=== PATIENT | female | born 1935 | race Caucasian/White ===

== ENCOUNTER → 2016-07-14 | Outpatient (REF) | payer MEDICARE ==
[2016-07-14 12:03] LABS: VITAMIN B12 LEVEL 858 PG/ML (247-911)
[2016-07-14 12:10] LABS: MEAN CORPUSCULAR HEMOGLOBIN 30.5 pg (27.0-33.0); MEAN CORPUSCULAR HGB CONC 33.6 g/dl (32.0-36.5); MEAN CORPUSCULAR VOLUME 90.7 fl (80.0-96.0); RED CELL DISTRIBUTION WIDTH 13.8 % (11.5-14.5); WHITE BLOOD COUNT 10.6 K/mm3 (4.0-10.0)
[2016-07-14 12:15] LABS: ALBUMIN 3.7 GM/DL (3.2-5.2); ALBUMIN/GLOBULIN RATIO 1.32 (1.00-1.93); ALKALINE PHOSPHATASE 64 U/L (45-117); ALT/SGPT 19 U/L (12-78); ANION GAP 7 MEQ/L (8-16); AST/SGOT 11 U/L (15-37); BILIRUBIN,TOTAL 0.5 MG/DL (0.2-1.0); BLOOD UREA NITROGEN 16 MG/DL (7-18); CALCIUM LEVEL 10.5 MG/DL (8.8-10.2); CARBON DIOXIDE LEVEL 29 MEQ/L (21-32); CHLORIDE LEVEL 108 MEQ/L (98-107); CHOLESTEROL LEVEL 188 MG/DL (<200); CREATININE FOR GFR 0.76 MG/DL (0.55-1.02); FREE T4 1.16 NG/DL (0.76-1.46); GLOMERULAR FILTRATION RATE > 60.0 (>32); GLUCOSE, FASTING 96 MG/DL (83-110); POTASSIUM SERUM 4.2 MEQ/L (3.5-5.1); SODIUM LEVEL 144 MEQ/L (136-145); TOTAL PROTEIN 6.5 GM/DL (6.4-8.2); TRIGLYCERIDES LEVEL 234 MG/DL (<150)
== END ==
LOC: M SFHCPLAZ 09:16
PROVIDERS: ATTEND Family Medicine
DX: E53.8 Deficiency of other specified B group vitamins (principal); E03.9 Hypothyroidism, unspecified; E78.2 Mixed hyperlipidemia

== ENCOUNTER → 2016-09-25 | Outpatient (CLI) | payer MEDICARE ==
[2016-09-25 14:37] LABS: FREE T4 1.26 NG/DL (0.76-1.46)
== END ==
LOC: M WUC 10:59
PROVIDERS: ATTEND Family Medicine
DX: E03.9 Hypothyroidism, unspecified (principal)

== ENCOUNTER → 2017-01-16 | Outpatient (CLI) | payer MEDICARE ==
--- NOTE | 2017-01-18 09:48 | DEXA ---
AP SPINE L1 - L4 1.093 -0.8 1.0 LT FEMUR TOTAL 0.697 -2.5 -0.4 RT FEMUR TOTAL 0.775 -1.8 0.3 TOTAL BODY TOTAL OTHER DUAL FEMUR FRAX* ASSESSMENT Risk factors: Secondary osteoporosis, history of adult fracture. 10 year probability of fracture Major osteoporotic fracture 32.5 % Hip fracture 12.7 % COMMENTS: There is low bone density of the spine. There is osteoporosis of the hips. The density of the spine is increased 20.2% since the initial exam on 07/2001. The spine density is increased 0.6% since the most recent exam on 12/2013. The density of the left hip has decreased 16.3% since the initial exam on 2001. The density of the left hip has decreased 2.1% since the most recent exam on 2013. The density of the right hip has decreased 7.5% since the initial exam on 2001. The density of the right hip has decreased 1.8% since the most recent exam on 2013. FOLLOW-UP: Recommendation for the next bone density exam: 2 years. KIARRA
== END ==
LOC: M WHC 10:21
PROVIDERS: ATTEND Family Medicine
DX: M81.0 Age-related osteoporosis without current pathological fracture (principal); Z78.0 Asymptomatic menopausal state

== ENCOUNTER → 2017-07-20 | Outpatient (REF) | payer MEDICARE ==
[2017-07-20 13:01] LABS: HEMATOCRIT 49.1 % (36.0-47.0); HEMOGLOBIN 15.6 g/dl (12.0-16.0); MEAN CORPUSCULAR HEMOGLOBIN 29.2 pg (27.0-33.0); MEAN CORPUSCULAR HGB CONC 31.8 g/dl (32.0-36.5); MEAN CORPUSCULAR VOLUME 91.8 fl (80.0-96.0); PLATELET COUNT, AUTOMATED 326 10^3/uL (150-450); RED BLOOD COUNT 5.35 10^6/uL (4.00-5.40); RED CELL DISTRIBUTION WIDTH 13.3 % (11.5-14.5); WHITE BLOOD COUNT 10.5 10^3/uL (4.0-10.0)
[2017-07-20 13:23] LABS: ALBUMIN/GLOBULIN RATIO 1.48 (1.00-1.93); ALKALINE PHOSPHATASE 65 U/L (45-117); ALT/SGPT 17 U/L (12-78); ANION GAP 7 MEQ/L (8-16); AST/SGOT 14 U/L (7-37); BILIRUBIN,TOTAL 0.5 MG/DL (0.2-1.0); BLOOD UREA NITROGEN 13 MG/DL (7-18); CALCIUM LEVEL 10.3 MG/DL (8.8-10.2); CARBON DIOXIDE LEVEL 30 MEQ/L (21-32); CHLORIDE LEVEL 105 MEQ/L (98-107); CHOLESTEROL LEVEL 188 MG/DL (<200); CHOLESTEROL RISK RATIO 4.272 (<5); CREATININE FOR GFR 0.62 MG/DL (0.55-1.02); FREE T4 1.43 NG/DL (0.76-1.46); GLOMERULAR FILTRATION RATE > 60.0 (>32); GLUCOSE, FASTING 89 MG/DL (83-110); HDL CHOLESTEROL 44 MG/DL (>40); NON-HDL-C 144 MG/DL; POTASSIUM SERUM 4.8 MEQ/L (3.5-5.1); SODIUM LEVEL 142 MEQ/L (136-145); THYROID STIMULATING HORMONE 0.428 uIU/ML (0.358-3.740); TOTAL PROTEIN 6.7 GM/DL (6.4-8.2); TRIGLYCERIDES LEVEL 240 MG/DL (<150); URIC ACID 7.4 MG/DL (2.6-6.0)
== END ==
LOC: M SFHCPLAZ 09:17
DX: E53.8 Deficiency of other specified B group vitamins (principal); E03.9 Hypothyroidism, unspecified; E78.2 Mixed hyperlipidemia; M10.9 Gout, unspecified
CPT/HCPCS: 84443

== ENCOUNTER → 2017-11-28 | Outpatient (REF) | payer MEDICARE ==
[2017-11-28 21:45] LABS: C REACTIVE PROTEIN QUANTITATIV 0.33 MG/DL (0.00-0.30)
[2017-11-29 02:01] LABS: ERYTHROCYTE SEDIMENTATION RATE 6 mm/hr (0-30)
[2017-11-29 02:06] LABS: BASO # 0.1 10^3/uL (0.0-0.2); BASO % 0.8 % (0.0-1.0); EOS # 0.3 10^3/uL (0.0-0.50); EOS % 3.3 % (0.0-3.0); HEMATOCRIT 49.2 % (36.0-47.0); HEMOGLOBIN 15.9 g/dl (12.0-15.5); IMMATURE GRANULOCYTE % 0.6 % (0-3.0); LYMPH % 30.3 % (24.0-44.0); MEAN CORPUSCULAR HGB CONC 32.3 g/dl (32.0-36.5); MEAN CORPUSCULAR VOLUME 92.8 fl (80.0-96.0); MONO # 0.9 10^3/uL (0.0-0.8); MONO % 8.5 % (0.0-5.0); NEUTROPHILS # 5.6 10^3/uL (1.8-7.7); NEUTROPHILS % 56.5 % (36.0-66.0); PLATELET COUNT, AUTOMATED 312 10^3/uL (150-450); RED CELL DISTRIBUTION WIDTH 13.4 % (11.5-14.5)
== END ==
LOC: M SFHCPLAZ 12:31
DX: L03.114 Cellulitis of left upper limb (principal)
CPT/HCPCS: 86140

== ENCOUNTER → 2018-01-21 | Outpatient (REF) | payer MEDICARE ==
[2018-01-22 12:28] LABS: TOTAL 25(OH) VITAMIN D 45.3 NG/ML (30.0-100.0)
[2018-01-22 12:31] LABS: FREE T4 1.26 NG/DL (0.76-1.46); THYROID STIMULATING HORMONE 0.541 uIU/ML (0.358-3.740)
== END ==
LOC: M SFHCPLAZ 16:23
DX: E55.9 Vitamin D deficiency, unspecified (principal); E03.9 Hypothyroidism, unspecified; Z79.899 Other long term (current) drug therapy
CPT/HCPCS: 84443

== ENCOUNTER → 2018-04-22 | Outpatient (REF) | payer MEDICARE ==
[2018-04-22 15:52] LABS: BASO # 0.1 10^3/uL (0.0-0.2); BASO % 0.7 % (0.0-1.0); EOS # 0.6 10^3/uL (0.0-0.50); EOS % 4.9 % (0.0-3.0); HEMATOCRIT 47.8 % (36.0-47.0); HEMOGLOBIN 15.5 g/dl (12.0-15.5); IMMATURE GRANULOCYTE % 0.7 % (0-3.0); LYMPH # 2.9 10^3/uL (1.5-4.5); LYMPH % 24.3 % (24.0-44.0); MEAN CORPUSCULAR HEMOGLOBIN 30.2 pg (27.0-33.0); MEAN CORPUSCULAR HGB CONC 32.4 g/dl (32.0-36.5); MEAN CORPUSCULAR VOLUME 93.2 fl (80.0-96.0); MONO # 1.2 10^3/uL (0.0-0.8); MONO % 9.5 % (0.0-5.0); NEUTROPHILS # 7.2 10^3/uL (1.8-7.7); NEUTROPHILS % 59.9 % (36.0-66.0); PLATELET COUNT, AUTOMATED 329 10^3/uL (150-450); RED BLOOD COUNT 5.13 10^6/uL (4.00-5.40); RED CELL DISTRIBUTION WIDTH 12.7 % (11.5-14.5); WHITE BLOOD COUNT 12.1 10^3/uL (4.0-10.0)
[2018-04-22 16:15] LABS: ALBUMIN 3.8 GM/DL (3.2-5.2); ALBUMIN/GLOBULIN RATIO 1.31 (1.00-1.93); ALKALINE PHOSPHATASE 78 U/L (45-117); ALT/SGPT 18 U/L (12-78); ANION GAP 7 MEQ/L (8-16); AST/SGOT 13 U/L (7-37); BILIRUBIN,TOTAL 0.5 MG/DL (0.2-1.0); BLOOD UREA NITROGEN 16 MG/DL (7-18); C REACTIVE PROTEIN QUANTITATIV 2.38 MG/DL (0.00-0.30); CARBON DIOXIDE LEVEL 29 MEQ/L (21-32); CHLORIDE LEVEL 106 MEQ/L (98-107); CREATININE FOR GFR 0.68 MG/DL (0.55-1.30); GLOMERULAR FILTRATION RATE > 60.0 (>32); GLUCOSE, FASTING 89 MG/DL (70-100); POTASSIUM SERUM 4.5 MEQ/L (3.5-5.1); SODIUM LEVEL 142 MEQ/L (136-145); TOTAL PROTEIN 6.7 GM/DL (6.4-8.2); URIC ACID 7.4 MG/DL (2.6-6.0)
[2018-04-22 16:32] LABS: ERYTHROCYTE SEDIMENTATION RATE 9 mm/hr (0-30)
== END ==
LOC: M SFHCPLAZ 14:03
DX: M10.9 Gout, unspecified (principal)
CPT/HCPCS: 84550

== ENCOUNTER → 2018-05-21 | Outpatient (CLI) | payer MEDICARE ==
[2018-05-21 12:41] LABS: BASO # 0.1 10^3/uL (0.0-0.2); BASO % 1.1 % (0.0-1.0); EOS # 0.5 10^3/uL (0.0-0.50); EOS % 5.8 % (0.0-3.0); HEMATOCRIT 48.2 % (36.0-47.0); HEMOGLOBIN 15.5 g/dl (12.0-15.5); IMMATURE GRANULOCYTE % 0.3 % (0-3.0); LYMPH # 3.1 10^3/uL (1.5-4.5); LYMPH % 35.7 % (24.0-44.0); MEAN CORPUSCULAR HEMOGLOBIN 29.3 pg (27.0-33.0); MEAN CORPUSCULAR HGB CONC 32.2 g/dl (32.0-36.5); MEAN CORPUSCULAR VOLUME 91.1 fl (80.0-96.0); MONO # 0.7 10^3/uL (0.0-0.8); MONO % 8.1 % (0.0-5.0); NEUTROPHILS # 4.3 10^3/uL (1.8-7.7); PLATELET COUNT, AUTOMATED 323 10^3/uL (150-450); RED BLOOD COUNT 5.29 10^6/uL (4.00-5.40); WHITE BLOOD COUNT 8.8 10^3/uL (4.0-10.0)
[2018-05-21 12:55] LABS: ANION GAP 6 MEQ/L (8-16); BLOOD UREA NITROGEN 22 MG/DL (7-18); CALCIUM LEVEL 10.9 MG/DL (8.8-10.2); CARBON DIOXIDE LEVEL 30 MEQ/L (21-32); CHLORIDE LEVEL 103 MEQ/L (98-107); CREATININE FOR GFR 0.81 MG/DL (0.55-1.30); GLOMERULAR FILTRATION RATE > 60.0 (>32); GLUCOSE, FASTING 88 MG/DL (70-100); POTASSIUM SERUM 4.7 MEQ/L (3.5-5.1); SODIUM LEVEL 139 MEQ/L (136-145); TOTAL 25(OH) VITAMIN D 32.5 NG/ML (30.0-100.0); URIC ACID 5.9 MG/DL (2.6-6.0)
[2018-05-21 15:56] LABS: PTH INTACT 126.8 PG/ML (18.5-88.0)
== END ==
LOC: M WUC 08:41
DX: E83.52 Hypercalcemia (principal); E03.9 Hypothyroidism, unspecified; M10.9 Gout, unspecified
CPT/HCPCS: 84443

== ENCOUNTER → 2018-11-20 | Outpatient (REF) | payer MEDICARE ==
[2018-11-20 17:19] LABS: BLOOD UREA NITROGEN 12 MG/DL (7-18); CALCIUM LEVEL 10.2 MG/DL (8.8-10.2); CARBON DIOXIDE LEVEL 27 MEQ/L (21-32); CHLORIDE LEVEL 105 MEQ/L (98-107); CREATININE FOR GFR 0.64 MG/DL (0.55-1.30); GLOMERULAR FILTRATION RATE > 60.0 (>32); GLUCOSE, FASTING 95 MG/DL (70-100); POTASSIUM SERUM 4.3 MEQ/L (3.5-5.1); SODIUM LEVEL 139 MEQ/L (136-145)
== END ==
LOC: M SFHCPLAZ 14:28
PROVIDERS: ATTEND Nurse Practitioner Family
DX: M10.9 Gout, unspecified (principal); I11.9 Hypertensive heart disease without heart failure

== ENCOUNTER 2018-12-02 08:04 | Emergency (ER) | payer OTHER, MEDICARE ==
[~2018-12-02] VITALS: Ht 154.9 cm; Wt 73.6 kg
[2018-12-02] MEDS ORDERED: ONDANSETRON 4MG/2ML VIAL (J2405) IV ONE (08:30)
[2018-12-02] MEDS ORDERED: MORPHINE 2 MG/ML 1ML SYRINGE (J2270) IV ONE (08:30)
[2018-12-02] MEDS ORDERED: LEVO125T4 PO (08:38)
[2018-12-02] MEDS ORDERED: ASPI81TA85 PO (08:38)
[2018-12-02] MEDS ORDERED: EZET10TA21 PO (08:38)
[2018-12-02] MEDS ORDERED: VITA200028 PO (08:38)
[2018-12-02] MEDS ORDERED: LABE20TAB PO (08:38)
[2018-12-02] MEDS ORDERED: LOSA50TA88 PO (08:38)
[2018-12-02] MEDS ORDERED: ALLO100T PO (08:38)
[2018-12-02] MEDS ORDERED: B-12100T2 PO (08:38)
[2018-12-02 08:42] LABS: BASO # 0.1 10^3/uL (0.0-0.2); BASO % 0.6 % (0.0-1.0); EOS # 0.5 10^3/uL (0.0-0.50); EOS % 4.2 % (0.0-3.0); HEMATOCRIT 45.2 % (36.0-47.0); HEMOGLOBIN 14.9 g/dl (12.0-15.5); LYMPH # 2.1 10^3/uL (1.5-4.5); LYMPH % 16.7 % (24.0-44.0); MEAN CORPUSCULAR HEMOGLOBIN 30.3 pg (27.0-33.0); MEAN CORPUSCULAR VOLUME 91.9 fl (80.0-96.0); MONO # 0.9 10^3/uL (0.0-0.8); MONO % 6.8 % (0.0-5.0); NEUTROPHILS # 8.9 10^3/uL (1.8-7.7); NEUTROPHILS % 70.7 % (36.0-66.0); PLATELET COUNT, AUTOMATED 393 10^3/uL (150-450); RED BLOOD COUNT 4.92 10^6/uL (4.00-5.40); WHITE BLOOD COUNT 12.6 10^3/uL (4.0-10.0)
[2018-12-02] MEDS ORDERED: ISOVUE-370 76% 100ML VIAL (Q9967) As Ordered ONE (08:55)
[2018-12-02 09:00] LABS: INR 1.05; PROTHROMBIN TIME 13.8 SECONDS (12.1-14.4)
[2018-12-02 09:01] LABS: PARTIAL THROMBOPLASTIN TIME 37.7 SECONDS (25.4-37.6)
[2018-12-02 09:21] LABS: ALBUMIN 3.6 GM/DL (3.2-5.2); BILIRUBIN,DIRECT 0.1 MG/DL (0.0-0.2); BILIRUBIN,TOTAL 0.4 MG/DL (0.2-1.0); FREE T4 1.33 NG/DL (0.76-1.46); MB/CK RELATIVE INDEX 3.09 (< OR =4); THYROID STIMULATING HORMONE 2.37 uIU/ML (0.358-3.740); TOTAL PROTEIN 6.7 GM/DL (6.4-8.2); TROPONIN I 0.02 NG/ML (< 0.10)
--- NOTE | 2018-12-02 09:51 | REP ---
PORTABLE CHEST: AP portable view of the chest is performed and compared to a prior study 01/27/2016. There is mild chronic interstitial fibrotic change with no acute infiltrate. There is mild left ventricular prominence unchanged. There is calcification and tortuosity of the thoracic aorta. The mediastinal silhouette is unchanged. IMPRESSION: Stable chronic findings without evidence of acute infiltrate. Electronically Signed by Harish Jackson MD 12/03/2018 11:51 A
[2018-12-02 09:58] LABS: APPEARANCE, URINE CLEAR (CLEAR); BACTERIA, URINE AUTO NEGATIVE (NEGATIVE); BILIRUBIN, URINE AUTO NEGATIVE (NEGATIVE); BLOOD, URINE BLOOD 1+ (NEGATIVE); COLOR, URINE STRAW (YELLOW); GLUCOSE, URINE (UA) AUTO NEGATIVE (NEGATIVE); KETONE, URINE AUTO NEGATIVE (NEGATIVE); LEUKOCYTE ESTERASE, URINE AUTO NEGATIVE (NEGATIVE); NITRITE, URINE AUTO NEGATIVE (NEGATIVE); PROTEIN, URINE AUTO NEGATIVE (NEGATIVE); RBC, URINE AUTO 0 /HPF (0-3); SPECIFIC GRAVITY URINE AUTO 1.021 (1.002-1.035); SQUAMOUS EPITHELIAL CELL UR AU 0 /HPF (0-6); UROBILINOGEN, URINE AUTO 0.2 mg/dL (0.0-2.0); WBC, URINE AUTO 1 /HPF (0-3)
--- NOTE | 2018-12-02 10:24 | REP ---
CT ANGIOGRAM CHEST: TECHNIQUE: Axial contrast enhanced images from the thoracic inlet to the upper abdomen using 100 mL Isovue 370 intravenous contrast material with multiplanar reformations. There is no CT evidence of pulmonary embolism. There is no thoracic aortic aneurysm or dissection. There are mild atherosclerotic calcifications of the thoracic aorta. Multiple calcified granulomas are seen in both lungs and there are calcified mediastinal and hilar lymph nodes present. Mid esophagus is moderately distended with air and ingested material. There is no pleural or pericardial effusion. Heart is slightly enlarged. Multiple calcified granulomas are seen in the liver and spleen. Small subcentimeter cyst is seen in the left lobe of the liver. There are right renal cysts. About 6 somewhat ill-defined nodular opacities are seen scattered throughout the right lung with 3 seen on the left. In addition there are scattered thickened interstitial markings bilaterally with mildly confluent streaky densities in the lingula. There is no pneumothorax. There is no definite rib fracture. There is significant compression of the L1 which appears chronic. This was seen on the prior plain films of 10/08/2015. IMPRESSION: No evidence of pulmonary embolism or aortic dissection. Moderate distension of the mid esophagus with air and ingested material. No pleural or pericardial effusion. Multiple scattered ill-defined subcentimeter nodular opacities in the lungs with diffuse increased and thickened interstitial markings. Findings could represent an inflammatory process, underlying neoplastic etiology is not excluded. Recommend followup CT of the chest in 3 months. Electronically Signed by Harish Jackson MD 12/03/2018 11:52 A
[2018-12-02 11:26] VITALS: BP 170/81
--- NOTE | 2018-12-02 15:16 | ECGEPIP ---
[facility] - ED Test Date: 2018-12-02 Pat Name: HECTOR TINAJERO Department: Room: - Gender: Female Data Sme: pmo : 1935 Requested By: Yvonen Braun Order Number: [id number] Reading MD: Leni Mariscal Measurements Intervals [place] Rate: 72 P: 33 NE: 180 QRS: QRSD: 77 T: QT: 360 QTc: 395 Interpretive Statements SINUS RHYTHM POSSIBLE INFERIOR MYOCARDIAL INFARCTION, OF INDETERMINATE AGE INCREASED RATE 01/27/16 Electronically Signed on 12-02-2018 15:16:20 EDT by Leni Mariscal
--- NOTE | 2018-12-03 13:07 | ED PDOC ---
Post-Departure Follow-Up lisette stark and graeme faxed formal report of cta chest for fu Yvonne Gama MD Dec 03, 2018 13:07
== END 2018-12-02 11:28 | disposition home or self-care (01) ==
LOC: M ED 08:04
DX: R07.89 Other chest pain (principal); I10 Essential (primary) hypertension; K22.8 Other specified diseases of esophagus; V43.52XA Car driver injured in collision with other type car in traffic accident, initial encounter; Y92.9 Unspecified place or not applicable; Y93.9 Activity, unspecified; Y99.9 Unspecified external cause status; Z87.891 Personal history of nicotine dependence; Z79.82 Long term (current) use of aspirin; Z79.899 Other long term (current) drug therapy; Z88.0 Allergy status to penicillin; Z88.8 Allergy status to other drugs, medicaments and biological substances
CPT/HCPCS: 71045; 71275; 80047; 80076; 81001; 82550; 82553; 83690; 84439; 84443; 84484; 85025; 85610; 85730; 93005; 93041; 94760; 96374; 96375; 99285; J2270; J2405; Q9967

== ENCOUNTER → 2019-01-20 | Outpatient (CLI) | payer MEDICARE, OTHER ==
[~2019-01-20] MED LIST: ALLO100T PO; ASPI81TA85 PO; B-12100T2 PO; E-Z-GAS II EFFERVESCENT PACKET (SODIUM BICARB./CITRIC ACID/SIMETHICONE) As Ordered ONE; E-Z-HD 98% w/w 340GM SUSP BTL As Ordered ONE; E-Z-PAQUE 96% w/w SUSP 176GM BTL As Ordered ONE; EZET10TA21 PO; LABE20TAB PO; LEVO125T4 PO; LOSA50TA88 PO; VITA200028 PO
--- NOTE | 2019-01-21 13:27 | REP ---
Esophagram The procedure was performed under the direct supervision of Dr. Jackson. The images were reviewed with Dr. Jackson. A single view PA chest x-ray is submitted as a robotics testing technician film. There is no change compared to a previous chest x-ray performed on 12/02/2018. Liquid barium and gas producing granules were given in the erect position as well as liquid barium in the prone oblique positions in order to perform a double contrast esophagram examination. The oral and pharyngeal stages of deglutition are unremarkable. There is cricopharyngeal hypertrophy. In the mid esophagus there is a large diverticulum with retained food. There is no evidence of esophagitis, stricture mucosal ring, or hiatal hernia. Gastroesophageal reflux is not demonstrated on this examination. Impression: 1. Cricopharyngeal hypertrophy. 2. In the mid esophagus there is a large diverticulum with retained food. 0.8 minutes of fluoro time was utilized for this procedure. Reviewed by MARTIN Ferrari 01/20/2019 04:24 P Electronically Signed by Harish Jackson MD 01/21/2019 01:18 P
== END ==
LOC: M RAD 07:25
PROVIDERS: ATTEND Internal Medicine Gastroenterology
DX: R93.3 Abnormal findings on diagnostic imaging of other parts of digestive tract (principal); J39.2 Other diseases of pharynx; K22.5 Diverticulum of esophagus, acquired

== ENCOUNTER → 2019-03-10 | Outpatient (CLI) | payer MEDICARE ==
[~2019-03-10] MED LIST changes: -E-Z-GAS II EFFERVESCENT PACKET (SODIUM BICARB./CITRIC ACID/SIMETHICONE) As Ordered ONE; -E-Z-HD 98% w/w 340GM SUSP BTL As Ordered ONE; -E-Z-PAQUE 96% w/w SUSP 176GM BTL As Ordered ONE
--- NOTE | 2019-03-10 16:00 | REP ---
CT of the chest without contrast Indication: Pulmonary nodules. Comparison: CTA chest of 12/02/2018 and barium esophagram of 01/20/2019. Technique: Axial CT of the chest was performed without contrast. Coronal and sagittal reformatted images and coronal MIP images were provided. Findings: The upper airway is patent. There is no suspicious focal nodule. Previously described scattered ill-defined nodular opacities within both lungs have resolved, likely inflammatory in etiology. There is mild peribronchial thickening within the lung bases and linear interstitial thickening or scarring along the pleura within the lingula. There is no focal consolidation. There is no pleural effusion. The thyroid is not identified. There is atherosclerotic calcification of the thoracic aorta and coronary arteries. There is no pericardial effusion. There is no axillary lymphadenopathy. There is a similar appearance of calcified mediastinal and left hilar lymph nodes. There is similar appearance of mid esophageal diverticulum containing debris. Within the upper abdomen, similar appearance of tiny calcified granuloma within the liver and spleen. Multiple bilateral rib fractures with evidence of healing are new since the prior CT examination. There are degenerative changes of the shoulders. There is similar compression deformity of the L1 vertebral body with greater than 50% loss of height. Impression: Previously described scattered ill-defined nodular opacities within both lungs have resolved, likely inflammatory in etiology. No lung nodules. Mid esophageal diverticulum containing debris, similar to prior. Compression deformity of the L1 vertebral body with greater down 50% loss of height, similar to prior. Bilateral rib fractures with evidence of healing, are new since 12/02/2018 examination. Electronically Signed by Malik Guan MD 03/10/2019 03:52 P
== END ==
LOC: M RAD 15:01
PROVIDERS: ATTEND Thoracic Surgery (Cardiothoracic Vascular Surgery)
DX: Z87.09 Personal history of other diseases of the respiratory system (principal)

== ENCOUNTER → 2019-03-14 | Outpatient (REF) | payer MEDICARE ==
[2019-03-14 11:36] LABS: ALBUMIN 3.9 GM/DL (3.2-5.2); ALT/SGPT 16 U/L (12-78); BILIRUBIN,TOTAL 0.4 MG/DL (0.2-1.0); BLOOD UREA NITROGEN 11 MG/DL (7-18); CALCIUM LEVEL 10.2 MG/DL (8.8-10.2); CARBON DIOXIDE LEVEL 25 MEQ/L (21-32); CHLORIDE LEVEL 108 MEQ/L (98-107); CHOLESTEROL LEVEL 179 MG/DL (<200); CHOLESTEROL RISK RATIO 3.977 (<5); CREATININE FOR GFR 0.71 MG/DL (0.55-1.30); GLOMERULAR FILTRATION RATE > 60.0 (>32); GLUCOSE, FASTING 101 MG/DL (70-100); HDL CHOLESTEROL 45 MG/DL (>40); LDL CHOLESTEROL 92 MG/DL (<100); NON-HDL-C 134 MG/DL; POTASSIUM SERUM 4.2 MEQ/L (3.5-5.1); SODIUM LEVEL 142 MEQ/L (136-145); TOTAL 25(OH) VITAMIN D 31.4 NG/ML (30.0-100.0); TOTAL PROTEIN 6.6 GM/DL (6.4-8.2); TRIGLYCERIDES LEVEL 211 MG/DL (<150); URIC ACID 4.7 MG/DL (2.6-6.0)
[2019-03-14 11:37] LABS: VITAMIN B12 LEVEL 500 PG/ML (247-911)
== END ==
LOC: M SFHCPLAZ 07:55
PROVIDERS: ATTEND Nurse Practitioner Family
DX: E53.8 Deficiency of other specified B group vitamins (principal); M10.9 Gout, unspecified; E03.9 Hypothyroidism, unspecified; E78.2 Mixed hyperlipidemia; I11.9 Hypertensive heart disease without heart failure; E21.0 Primary hyperparathyroidism; E55.9 Vitamin D deficiency, unspecified

== ENCOUNTER → 2019-05-07 | Outpatient (CLI) | payer MEDICARE ==
--- NOTE | 2019-05-08 07:13 | REP ---
CERVICAL SPINE SERIES: Eight views. HISTORY: Neck pain. FINDINGS: Cervical vertebral body heights are preserved. Alignment is normal. Flexion/extension lateral views show no subluxation or instability. There is degenerative disc narrowing at C4-5 and C5-6 with anterior osteophyte formation. Oblique images show uncovertebral spurring on the right narrowing the C5-6 foramen. There is facet osteoarthritic hypertrophy bilaterally at each cervical level. There is a small left cervical rib and a somewhat elongate transverse processes noted on the right at C7. Vascular calcification is observed along the course of the right carotid artery. IMPRESSION: Degenerative disc and osteoarthritic facet changes as above. Electronically Signed by Raymond Oliva MD 05/08/2019 09:06 A
== END ==
LOC: M WUC 18:10
PROVIDERS: ATTEND Nurse Practitioner Adult Health
DX: M50.321 Other cervical disc degeneration at C4-C5 level (principal); M50.322 Other cervical disc degeneration at C5-C6 level

== ENCOUNTER → 2020-03-03 | Outpatient (CLI) | payer MEDICARE ==
[~2020-03-03] MED LIST changes: -ASPI81TA85 PO; +ASPI81TA86 PO
[2020-03-03 15:47] LABS: ALBUMIN 3.8 GM/DL (3.2-5.2); ALT/SGPT 22 U/L (12-78); BILIRUBIN,TOTAL 0.5 MG/DL (0.2-1.0); BLOOD UREA NITROGEN 16 MG/DL (7-18); CALCIUM LEVEL 10.5 MG/DL (8.8-10.2); CARBON DIOXIDE LEVEL 28 MEQ/L (21-32); CHLORIDE LEVEL 108 MEQ/L (98-107); CHOLESTEROL LEVEL 186 MG/DL (<200); CHOLESTEROL RISK RATIO 5.166 (<5); CREATININE FOR GFR 0.65 MG/DL (0.55-1.30); GLOMERULAR FILTRATION RATE > 60.0 (>32); GLUCOSE, FASTING 94 MG/DL (70-100); HDL CHOLESTEROL 36 MG/DL (>40); LDL CHOLESTEROL 105 MG/DL (<100); NON-HDL-C 150 MG/DL; POTASSIUM SERUM 4.6 MEQ/L (3.5-5.1); SODIUM LEVEL 140 MEQ/L (136-145); TOTAL 25(OH) VITAMIN D 27.8 NG/ML (30.0-100.0); TOTAL PROTEIN 6.6 GM/DL (6.4-8.2); TRIGLYCERIDES LEVEL 225 MG/DL (<150); URIC ACID 6.1 MG/DL (2.6-6.0)
== END ==
LOC: M PLALAB 09:26
PROVIDERS: ATTEND Nurse Practitioner Adult Health
DX: E78.2 Mixed hyperlipidemia (principal); I11.9 Hypertensive heart disease without heart failure; E03.9 Hypothyroidism, unspecified; E21.3 Hyperparathyroidism, unspecified; M10.9 Gout, unspecified; E55.9 Vitamin D deficiency, unspecified

== ENCOUNTER → 2020-11-11 | Outpatient (REF) | payer MEDICARE ==
[2020-11-11 17:54] LABS: ALT/SGPT 18 U/L (12-78); BILIRUBIN,TOTAL 0.5 MG/DL (0.2-1.0); BLOOD UREA NITROGEN 13 MG/DL (7-18); CALCIUM LEVEL 10.8 MG/DL (8.8-10.2); CARBON DIOXIDE LEVEL 30 MEQ/L (21-32); CHLORIDE LEVEL 107 MEQ/L (98-107); CHOLESTEROL LEVEL 181 MG/DL (<200); CHOLESTEROL RISK RATIO 4.525 (<5); CREATININE FOR GFR 0.64 MG/DL (0.55-1.30); GLOMERULAR FILTRATION RATE > 60.0 (>32); GLUCOSE, FASTING 85 MG/DL (70-100); HDL CHOLESTEROL 40 MG/DL (>40); LDL CHOLESTEROL 97 MG/DL (<100); NON-HDL-C 141 MG/DL; POTASSIUM SERUM 4.4 MEQ/L (3.5-5.1); SODIUM LEVEL 141 MEQ/L (136-145); TOTAL PROTEIN 6.5 GM/DL (6.4-8.2); TRIGLYCERIDES LEVEL 222 MG/DL (<150)
[2020-11-11 17:55] LABS: PTH INTACT 118.9 PG/ML (18.5-88.0); VITAMIN B12 LEVEL 908 PG/ML (247-911)
== END ==
LOC: M SFHCPLAZ 14:27
PROVIDERS: ATTEND Nurse Practitioner Adult Health
DX: E21.0 Primary hyperparathyroidism (principal); E55.9 Vitamin D deficiency, unspecified; I11.9 Hypertensive heart disease without heart failure; E53.8 Deficiency of other specified B group vitamins; E03.9 Hypothyroidism, unspecified; E78.2 Mixed hyperlipidemia

== ENCOUNTER 2021-04-17 00:14 | Inpatient (IN) | payer MEDICARE ==
[~2021-04-17] VITALS: Ht 157.5 cm; Wt 71.0 kg
--- OUTSIDE RECORDS SUMMARY | 2021-04-17 00:23 | CCD ---
Author Author [facility] Organization [facility] Address Unknown Phone Unavailable Care Team Providers Care Air Traffic Coordinator Name Role Phone Angelica Mendez Unavailable PROBLEMS ALLERGIES ENCOUNTERS from 1935 to 2021-01-27 IMMUNIZATIONS SOCIAL HISTORY REASON FOR REFERRAL No Information VITAL SIGNS MEDICATIONS PROCEDURES No Information RESULTS No Results REASON FOR VISIT MEDICAL (GENERAL) HISTORY Goals Section Health Concerns MEDICAL EQUIPMENT No Information MENTAL STATUS FUNCTIONAL STATUS ASSESSMENTS No Information PLAN OF TREATMENT Insurance Providers
--- OUTSIDE RECORDS SUMMARY | 2021-04-17 00:23 | CCD ---
Author Author [facility] Organization [facility] Address Unknown Phone Unavailable Care Team Providers Care [employer] Information [employer] Officer Name Role Phone Angelica Mendez Unavailable PROBLEMS Type Condition ICD9-CM Code QPP59-ZU Code Onset Dates Condition S tatus W/U Status Risk SNOMED Code Notes Problem B12 deficiency E53.8 Active confirmed 53210 4004 Problem Vitamin D deficiency, unspecified E55.9 Active con firmed 49846285 Problem Hypothyroidism, unspecified E03.9 Active confirmed 74678751 Problem Sleep pattern disturbance G47.20 Active confirmed 18389816 Problem Age-related osteoporosis without current pathological fracture M81.0 Active confirmed 903000278 has primary hyp erparathyroidism, would benefit from long-term ART Problem Encounter for immunization Z23 Active confirmed 586250031 Problem Allergic rhinitis, unspecified J30.9 Active confir med 81529583 Problem Deficiency of other specified B group vitamins E53 .8 Active confirmed 73431654 Problem Acute gout of right foot, unspecified cause M10.9 Active confirmed 678833743 Problem Vitamin D deficiency E55.9 Active confirmed 41197204 Problem Hypercalcemia E83.52 Active confirmed 929228 09 Problem Bilateral hearing loss, unspecified hearing loss type H91.93 Active confirmed 56573213 Problem Medicare annual wellness visit, subsequent Z00.00 Active confirmed 537217414 Problem Gout, unspecified M10.9 Active confirmed 90 841818 Problem Anxiety F41.9 Active confirmed 88270314 Problem Hypertensive heart disease without heart failure I 11.9 Active confirmed 41249241 Problem Primary generalized (osteo)arthritis M15.0 Act benjy confirmed 333858281 Problem Mixed hyperlipidemia E78.2 Active confirmed 521038575 intolerant of statins; on Zetia Problem 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, unspecified cause M1A.9XX1 Active confirmed 19155044 Problem Hyperparathyroidism E21.3 Active confirmed 17886797 Problem Primary hyperparathyroidism E21.0 Active confirmed 09987877 declines referral 08/20; calcium typically 10.x Problem Leukocytosis, unspecified type D72.829 Active confi rmed 523955578 ALLERGIES Allergen (clinical drug ingredient) Drug/Non Drug Allergy do cumented on EMR Reaction Allergy Type Onset Date Status penicillin G Penicillin G Procaine([facility] Code:[address]-02) Rash Drug Allergy Active hydrochlorothiazide Hydrochlorothiazide([facility] Code:[address]-47) gout Drug Allergy Active quinapril Quinapril HCl([facility] Code:[address]-89) cough Drug Toni rgy Active Lozal increased calcium Drug Allergy Activ e simvastatin Zocor([facility] Code:[address]-65) myalgias Drug Allergy Active ENCOUNTERS from 1935 to 2021-02-04 Encounter Location Date Provider Diagnosis [address] [phone] [place] [address] Jan, Angelica Mendez Hypertensive heart disease w [facility] heart failure I11.9 ; Mixed hyperlipidemia E78.2 and Anxiety F41.9 IMMUNIZATIONS Vaccine Route Administration Date Status Influenza (High Dose 65 & up) IM Intramuscular Jul 21, 2016 A dministered Influenza 18 yrs & older Flublok IM Intramuscular May 03, 2018 Administered Influenza (High Dose 65 & up) Unknown May 02, 2014 Ad ministered Influenza (High Dose 65 & up) IM Intramuscular Mar 30, 2015 A dministered Influenza (High Dose 65 & up) Unknown Apr 23, 2017 Ad ministered Influenza 6mo & up Fluzone IM Intramuscular Apr 28, 2010 Admi nistered Zoster 0.65mL Zostavax Unknown Apr 08, 2014 Administe red Pneumococcal Adult 0.5mL Pneumovax 23 IM Intramuscular Mar 03, 2020 Administered Pneumococcal Adult 0.5mL Pneumovax 23 IM Intramuscular December 15, 2015 Administered TDAP 0.5mL (Boostrix) IM Intramuscular December 08, 2010 Administe red Pneumococcal 0.5mL Prevnar 13 IM Intramuscular December 08, 2014 A dministered Influenza 6mo & up Fluzone Unknown May 15, 2013 Admin istered Influenza 6mo & up Fluzone IM Intramuscular May 16, 2012 Admi nistered Influenza 6mo & up Fluzone IM Intramuscular May 10, 2011 Admi nistered SOCIAL HISTORY Tobacco Use: Social History Observation Description Date Details (start date - stop date) Former Smoker Sex Assigned At : Social History Observation Description Sex Assigned At Unknown Education: Question Answer Notes Level of Education: High School Audit Question Answer Notes Total Score: 0 Interpretation: Alcohol Education Language: Question Answer Notes Languages spoken: Irish Rastafari: Question Answer Notes Rastafari No evangelical beliefs that would impact health care. Sexual Hx: Question Answer Notes Had sex in the last 12 months (vaginal, oral, or anal)? No Have you ever had an STD? No Drug and Alcohol Question Answer Notes Total Score: 0 Interpretation: No problems reported Alcohol Screening: Question Answer Notes Did you have a drink containing alcohol in the past year? No Points 0 Interpretation Negative BMI Care Goal Follow-Up Question Answer Notes Above Normal BMI Follow-Up Lifestyle education regarding t Tobacco Use: Question Answer Notes Are you a: former smoker How long has it been since you last smoked? > 10 years REASON FOR REFERRAL No Information VITAL SIGNS Weight 155 lbs Jan, Weight-kg 70.31 kg Jan, Height 63 in Jan, BMI 27.45 kg/m2 Jan, Heart Rate 84 /min Jan, Respiratory Rate 18 /min Jan, Temperature 97.7 degrees Fahrenheit Jan, Oximetry 96 Jan, Blood pressure systolic 152 mm Hg Jan, Blood pressure diastolic 98 mm Hg Jan, MEDICATIONS Medication SIG (Take, Route, Frequency, Duration) Notes Start Da te End Date Status Allopurinol 100 MG 1 tablet Orally twice daily for Active Vitamin D 1000 UNIT 1 tablet Orally Once a day Active Levothyroxine Sodium 125 MCG TAKE ONE TABLET BY MOUTH EVERY DAY for 9 0 Active Zetia 10 MG 1 tablet Orally Once a day for Active Synthroid 125 MCG 1 tab(s) Orally Once a day Active Zetia 10 MG 1 tablet Orally Once a day Active Labetalol HCl 200 MG TAKE ONE TABLET BY MOUTH TWICE A DAY Active Amitriptyline HCl 10 MG 1 tablet at bedtime Orally Once a day fo r days Jan, Active Losartan Potassium 100 MG 1 tablet Orally Once a day for 90 days Jan, Active PROCEDURES No Information RESULTS No Results REASON FOR VISIT elevated BP MEDICAL (GENERAL) HISTORY Type Description Date Medical History Hypothyroidism Medical History hyperlipidemia Medical History hypertension Medical History metabolic syndrome Medical History impaired fasting glucose Medical History osteoporosis--started tx 200 2; tx d/c 09/2010; DEXA 07/2001, 08/2004, 08/2009--repeated 01/12, BMD decreased c/w 2009, tx restarted 06/14; repeat DEXA 2018 Medical History vitamin D deficiency Medical History colonic polyps Medical History diverticulosis Medical History Gout 08/1999, 08/2002, 05/2007, 12/16 Medical History pneumonia 08/2004 Medical History L1 vertebral compresstion fracture 09/18 08 Medical History probable primary hyperparathyroidism; de clines referral 08/20 Medical History Borderline B12 level 06/14 Surgical History colonoscopy (hyperplastic polyp only) 21 03 Surgical History involutional ptosis upper right eye lid 06/2010 Surgical History involutional ptosis upper left eye lid 0 07/2010 Surgical History Right ankle surgery after a fall 1976 Surgical History blepharoplasty 06/10, 07/12 Goals Section No Information Health Concerns No Information MEDICAL EQUIPMENT No Information MENTAL STATUS No Information FUNCTIONAL STATUS No Information ASSESSMENTS Encounter Date Diagnosis Assessment Notes Treatment Notes Treatm ent Clinical Notes Jan, Hypertensive heart disease without heart failure (ICD-10 - I11.9) Her Cozaar was increased to 50 mg twice daily by phone call earlier this week, will continue this medication as ordered to 100 mg tablet written instructions given to patient follow-up appointment scheduled Jan, Mixed hyperlipidemia (ICD-10 - E78.2) in tolerant of statins; on Zetia Patient is intolerant to statins. She is tolerating Zetia. Reinforced the importance of lifestyle modifications to lower cardiovascular disease risk. These recommendations included eating a heart healthy diet, regular aerobic exercise and maintaining a desirable body weight. Jan, Anxiety (ICD-10 - F41.9) Patient stop Paxil, does not want to restart it. Because she read the side effects which is hypertension, after long conversation agreed upon amitriptyline 10 mg p.o. nightly for sleep and anxiety issues reviewed side effects with patient, encouraged her to give this medication a try PLAN OF TREATMENT Medication Medication Name Sig Start Date Stop Date Zetia 10 MG 1 tablet Orally Once a day Labetalol HCl 200 MG TAKE ONE TABLET BY MOUTH TWICE A DAY Losartan Potassium 100 MG 1 tablet Orally Once a day for 90 days Jan, Amitriptyline HCl 10 MG 1 tablet at bedtime Orally Once a da y for 90 days Jan, Treatment Notes Assessment Notes Clinical Notes Hypertensive heart disease without heart failure Her Cozaar was increased to 50 mg twice daily by phone call earlier this week, will continue this medication as ordered to 100 mg tablet written instructions given to patient follow-up appointment scheduled Mixed hyperlipidemia Patient is intolera nt to statins. She is tolerating Zetia. Reinforced the importance of lifestyle modifications to lower cardiovascular disease risk. These recommendations included eating a heart hea lthy diet, regular aerobic exercise and maintaining a desirable body weight. Anxiety Patient stop Paxil, does not want to restart it. Because she read the side effects which is hypertension, after long conversation agreed upon amitriptyline 10 mg p.o. nightly for sleep and anxiety issues reviewed side effects with patient, encouraged her to give this medication a try Next Appt Details Angelica 1 month afternoon appt hypertens ion Reason: Provider Name:Angelica Mendez, 02:30:00 PM, [address] [place] [address], , [place], [address], Provider Name:Angelica Durbin Vanessa, 01:00:00 PM, [address] [place] [address], , [place], [address], Insurance Providers Payer Name Payer Address Payer Phone Insured Name Patient Relati onship to Insured Coverage Start Date Coverage End Date MEDICARE BLUE PPO [address] [facility] BLUE CROSS [address] [facility] [id number] [address] [place] self
--- OUTSIDE RECORDS SUMMARY | 2021-04-17 00:23 | CCD ---
Author Author [facility] Organization [facility] Address Unknown Phone Unavailable Care Team Providers Care Table Hand Name Role Phone Angelica Mendez Unavailable PROBLEMS Type Condition ICD9-CM Code [id number] Code Onset Dates Condition S tatus W/U Status Risk SNOMED Code Notes Problem B12 deficiency E53.8 Active confirmed 16436 4004 Problem Vitamin D deficiency, unspecified E55.9 Active con firmed 32045792 Problem Hypothyroidism, unspecified E03.9 Active confirmed 94853468 Problem Sleep pattern disturbance G47.20 Active confirmed 39587542 Problem Age-related osteoporosis without current pathological fracture M81.0 Active confirmed 103321633 has primary hyp erparathyroidism, would benefit from long-term ART Problem Encounter for immunization Z23 Active confirmed 817688678 Problem Allergic rhinitis, unspecified J30.9 Active confir med 63269504 Problem Deficiency of other specified B group vitamins E53 .8 Active confirmed 69852727 Problem Acute gout of right foot, unspecified cause M10.9 Active confirmed 820342831 Problem Vitamin D deficiency E55.9 Active confirmed 38159212 Problem Hypercalcemia E83.52 Active confirmed 769212 09 Problem Bilateral hearing loss, unspecified hearing loss type H91.93 Active confirmed 50407759 Problem Medicare annual wellness visit, subsequent Z00.00 Active confirmed 929421350 Problem Gout, unspecified M10.9 Active confirmed 90 118674 Problem Anxiety F41.9 Active confirmed 23011934 Problem Hypertensive heart disease without heart failure I 11.9 Active confirmed 76579583 Problem Primary generalized (osteo)arthritis M15.0 Act benjy confirmed 580222205 Problem Mixed hyperlipidemia E78.2 Active confirmed 797687122 intolerant of statins; on Zetia Problem 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, unspecified cause M1A.9XX1 Active confirmed 87702503 Problem Hyperparathyroidism E21.3 Active confirmed 00889746 Problem Primary hyperparathyroidism E21.0 Active confirmed 12333222 declines referral 08/20; calcium typically 10.x Problem Leukocytosis, unspecified type D72.829 Active confi rmed [id number] ALLERGIES Allergen (clinical drug ingredient) Drug/Non Drug Allergy do cumented on EMR Reaction Allergy Type Onset Date Status penicillin G Penicillin G Procaine([facility] Code:[address]-64) Rash Drug Allergy Active hydrochlorothiazide Hydrochlorothiazide([facility] Code:[address]-36) gout Drug Allergy Active quinapril Quinapril HCl([facility] Code:[address]-16) cough Drug Toni rgy Active Lozal increased calcium Drug Allergy Activ e simvastatin Zocor([facility] Code:[address]-28) myalgias Drug Allergy Active ENCOUNTERS from 1935 to 2021-03-10 Encounter Location Date Provider Diagnosis [address] [phone] [place] [address] 08 Mar, 2021 Angelica Servage Mixed hyperlipidemia E78.2 ; Hypertensive heart disease without heart failure I11.9 ; Anxiety F41.9 ; Vitamin D deficiency, unspecified E55.9 ; B12 deficiency E53.8 and Hypothyroidism, unspecified E03.9 IMMUNIZATIONS Vaccine Route Administration Date Status Influenza (High Dose 65 & up) IM Intramuscular Jul 21, 2016 A dministered Influenza 18 yrs & older Flublok IM Intramuscular May 03, 2018 Administered Influenza (High Dose 65 & up) Unknown May 02, 2014 Ad ministered Influenza (High Dose 65 & up) Unknown Apr 23, 2017 Ad ministered Influenza (High Dose 65 & up) IM Intramuscular Mar 30, 2015 A dministered Influenza 6mo & up Fluzone IM Intramuscular [...] Education Language: Question Answer Notes Languages spoken: Belarusian Moravian: Question Answer Notes Moravian No uatsdin beliefs that would impact health care. Sexual [...] FOR REFERRAL No Information VITAL SIGNS Weight 155.4 lbs Mar, Weight-kg 70.49 kg Mar, Height 63 in Mar, BMI 27.52 kg/m2 Mar, Heart Rate 89 /min Mar, Respiratory Rate 18 /min Mar, Temperature 97.9 degrees Fahrenheit Mar, Oximetry 98 Mar, Blood pressure systolic 142 mm Hg Mar, Blood pressure diastolic 88 mm Hg Mar, MEDICATIONS Medication SIG (Take, Route, Frequency, Duration) Notes Start Da te End Date Status Zetia 10 MG 1 tablet Orally Once a day for 90 Active Vitamin D 1000 UNIT 1 tablet Orally Once a day Active Allopurinol 100 MG 1 tablet Orally twice daily for 90 Active Labetalol HCl 200 MG TAKE ONE TABLET BY MOUTH TWICE A DAY Active Zetia 10 MG 1 tablet Orally Once a day Active Levothyroxine Sodium 125 MCG TAKE ONE TABLET BY MOUTH EVERY DAY for 9 0 Active Losartan Potassium 100 MG 1 tablet Orally Once a day for 90 days Active Amitriptyline HCl 10 MG 1 tablet at bedtime Orally Once a day for 90 days Active PROCEDURES No Information RESULTS No Results REASON FOR VISIT 1 Month, hypertension follow up MEDICAL (GENERAL) HISTORY Type Description Date Medical [...] Notes Treatment Notes Treatm ent Clinical Notes Mar, Mixed hyperlipidemia (ICD-10 - E78.2) in tolerant of statins; on Zetia Patient is intolerant to statins. She is tolerating Zetia. Reinforced the importance of lifestyle modifications to lower cardiovascular disease risk. These recommendations included eating a heart healthy diet, regular aerobic exercise and maintaining a desirable body weight. Mar, Hypertensive heart disease without heart failure (ICD-10 - I11.9) Tolerating losartan 100 mg daily, will continue with the labetalol bp acceptable Mar, Anxiety (ICD-10 - F41.9) Patient stop Paxil, does not want to restart it. Because she read the side effects which is hypertension, after long conversation agreed upon amitriptyline 10 mg p.o. nightly for sleep and anxiety issues reviewed side effects with patient, encouraged her to give this medication a try 03/22 states she likes the medication, has been sleeping thri the night Mar, Vitamin D deficiency, unspecified (ICD-10 - E55. 9) Mar, B12 deficiency (ICD-10 - E53.8) Mar, Hypothyroidism, unspecified (ICD-10 - E03.9) PLAN OF TREATMENT Medication Medication Name Sig Start Date Stop Date Losartan Potassium 100 MG 1 tablet Orally Once a day for 90 days Zetia 10 MG 1 tablet Orally Once a day Labetalol HCl 200 MG TAKE ONE TABLET BY MOUTH TWICE A DAY Amitriptyline HCl 10 MG 1 tablet at bedtime Orally Once a day fo r 90 days Treatment Notes Assessment Notes Clinical Notes Mixed hyperlipidemia Patient is intolera nt to statins. She is tolerating Zetia. Reinforced the importance of lifestyle modifications to lower cardiovascular disease risk. These recommendations included eating a heart hea lthy diet, regular aerobic exercise and maintaining a desirable body weight. Hypertensive heart disease without heart failure Tolerating losartan 100 mg daily, will continue with the labetalol bp acceptable Anxiety Patient stop Paxil, does not want to restart it. Because she read the side effects which is hypertension, after long conversation agreed upon amitriptyline 10 mg p.o. nightly for sleep and anxiety issues reviewed side effects with patient, encouraged her to give this medication a try03/22 states she likes the medication, has been sleeping thri the night Future Test Test Name Order Date LIPID PANEL (CARDIAC RISK) [id number] Comprehensive Metabolic Profile (CMP) 20210502 VITAMIN D 25-HYDROXY 20210502 TSH 20210502 VITAMIN B12 LEVEL 20210502 Next Appt Details move aprt to early may Reason: Provider Name:Angelica Mendez, 02:00:00 PM, [address] [facility], , [place], [address], Insurance Providers Payer Name Payer Address Payer Phone Insured Name Patient Relati onship to Insured Coverage Start Date Coverage End Date MEDICARE BLUE PPO [address] [facility] [address] [facility] [id number] [address] [place] self
--- OUTSIDE RECORDS SUMMARY | 2021-04-17 00:23 | CCD ---
Author Author [facility] Organization [facility] Address Unknown Phone Unavailable Care Team Providers Care Load Mixer Name Role Phone Angelica Mendez Unavailable PROBLEMS Type Condition ICD9-CM Code [id number] Code Onset Dates Condition S tatus W/U Status Risk SNOMED Code Notes Problem B12 deficiency E53.8 Active confirmed 24644 4004 Problem Vitamin D deficiency, unspecified E55.9 Active con firmed 40187605 Problem Hypothyroidism, unspecified E03.9 Active confirmed 73768144 Problem Sleep pattern disturbance G47.20 Active confirmed 54638209 Problem Age-related osteoporosis without current pathological fracture M81.0 Active confirmed 183041691 has primary hyp erparathyroidism, would benefit from long-term ART Problem Encounter for immunization Z23 Active confirmed 392749445 Problem Allergic rhinitis, unspecified J30.9 Active confir med 30790421 Problem Deficiency of other specified B group vitamins E53 .8 Active confirmed 06770481 Problem Acute gout of right foot, unspecified cause M10.9 Active confirmed 080836444 Problem Vitamin D deficiency E55.9 Active confirmed 26109614 Problem Hypercalcemia E83.52 Active confirmed 857770 09 Problem Bilateral hearing loss, unspecified hearing loss type H91.93 Active confirmed 77004521 Problem Medicare annual wellness visit, subsequent Z00.00 Active confirmed 780312353 Problem Gout, unspecified M10.9 Active confirmed 90 862121 Problem Anxiety F41.9 Active confirmed 39766233 Problem Hypertensive heart disease without heart failure I 11.9 Active confirmed 09925558 Problem Primary generalized (osteo)arthritis M15.0 Act benjy confirmed 640723110 Problem Mixed hyperlipidemia E78.2 Active confirmed 393124678 intolerant of statins; on Zetia Problem 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, unspecified cause M1A.9XX1 Active confirmed 47814274 Problem Hyperparathyroidism E21.3 Active confirmed 09814547 Problem Primary hyperparathyroidism E21.0 Active confirmed 78753492 declines referral 08/20; calcium typically 10.x Problem Leukocytosis, unspecified type D72.829 Active confi rmed [id number] ALLERGIES Allergen (clinical drug ingredient) Drug/Non Drug Allergy do cumented on EMR Reaction Allergy Type Onset Date Status penicillin G Penicillin G Procaine([facility] Code:[address]-16) Rash Drug Allergy Active hydrochlorothiazide Hydrochlorothiazide([facility] Code:[address]-84) gout Drug Allergy Active quinapril Quinapril HCl([facility] Code:[address]-41) cough Drug Toni rgy Active Lozal increased calcium Drug Allergy Activ e simvastatin Zocor([facility] Code:[address]-17) myalgias Drug Allergy Active ENCOUNTERS from 1935 to 2021-01-31 Encounter Location Date Provider Diagnosis [address] [phone] [place] [address] Jan, Angelica Conroyage IMMUNIZATIONS Vaccine Route Administration Date Status Influenza [...] Education Language: Question Answer Notes Languages spoken: Polish Sikhism: Question Answer Notes Sikhism No christianity beliefs that would impact health care. Sexual [...] REASON FOR REFERRAL No Information VITAL SIGNS No information MEDICATIONS Medication SIG (Take, Route, Frequency, Duration) Notes Start Da te End Date Status Zetia 10 MG 1 tablet Orally Once a day for 90 Active Levothyroxine Sodium 125 MCG TAKE ONE TABLET BY MOUTH EVERY DAY for 9 0 Active Vitamin D 1000 UNIT 1 tablet Orally Once a day Active Losartan Potassium 50 MG TAKE ONE TABLET BY MOUTH EVERY DAY for 90 Active Ezetimibe 10 MG TAKE ONE TABLET BY MOUTH ONCE A DAY Oral for 48 Active Labetalol HCl 200 MG TAKE ONE TABLET BY MOUTH TWICE A DAY for 90 Active Synthroid 125 MCG 1 tab(s) Orally Once a day Active Allopurinol 100 MG 1 tablet Orally twice daily for 90 Active PARoxetine HCl 10 MG 1 tab Orally before bedtime for 30 day(s) October, Active PROCEDURES No Information RESULTS No Results [...] No Information FUNCTIONAL STATUS No Information ASSESSMENTS No Information PLAN OF TREATMENT Medication Medication Name Sig Start Date Stop Date Zetia 10 MG 1 tablet Orally Once a day for 90 Synthroid 125 MCG 1 tab(s) Orally Once a day Allopurinol 100 MG 1 tablet Orally twice daily for 90 Labetalol HCl 200 MG TAKE ONE TABLET BY MOUTH TWICE A DAY for 90 Vitamin D 1000 UNIT 1 tablet Orally Once a day Losartan Potassium 50 MG TAKE ONE TABLET BY MOUTH EVERY DAY for 90 Levothyroxine Sodium 125 MCG TAKE ONE TABLET BY MOUTH EVERY DAY for 90 PARoxetine HCl 10 MG 1 tab Orally before bedtime for 30 day(s) 1 October, Next Appt Details Provider Name:Angelica Gifty Mendez, 07:15:00 AM, [address] [place] [address] , [place], [address], Provider Name:Angelica Gifty Mendez, 01:00:00 PM, [address] [place] [address] , [place], [address], Insurance Providers Payer Name Payer Address Payer Phone Insured Name Patient Relati onship to Insured Coverage Start Date Coverage End Date MEDICARE BLUE PPO [address] [facility] [id number] [address] [place] self
--- OUTSIDE RECORDS SUMMARY | 2021-04-17 00:23 | CCD ---
Author Author [facility] Organization [facility] Address Unknown Phone Unavailable Care Team Providers Care Mica Sizer Name Role Phone Maring, Uriel PA Unavailable Unavailable Maring, Uriel PA Unavailable Unavailable Maring, Uriel PA Unavailable Unavailable Maring, Uriel PA Unavailable Unavailable Maring, Uriel PA Unavailable Unavailable Maring, Uriel PA Unavailable Unavailable Maring, Uriel PA Unavailable Unavailable Maring, Uriel PA Unavailable Unavailable Maring, Uriel PA Unavailable Unavailable Maring, Uriel PA Unavailable Unavailable Maring, Uriel PA Unavailable Unavailable Maring, Uriel PA Unavailable Unavailable Maring, Uriel PA Unavailable Unavailable Maring, Uriel PA Unavailable Unavailable Maring, Uriel PA Unavailable Unavailable Maring, Uriel PA Unavailable Unavailable Re-disclosure Warning The records that you are about to access may contain information from federally-assisted alcohol or drug abuse programs. If such information is present, then the following federally mandated warning applies: This information has been disclosed to you from records protected by federal confidentiality rules (42 CFR part 2). The federal rules prohibit you from making any further disclosure of this information unless further disclosure is expressly permitted by the written consent of the person to whom it pertains or as otherwise permitted by 42 CFR part 2. A general authorization for the release of medical or other information is NOT sufficient for this purpose. The Federal rules restrict any use of the information to criminally investigate or prosecute any alcohol or drug abuse patient.The records that you are about to access may contain highly sensitive health information, the redisclosure of which is protected by Article 27-F of the [facility] Public Health law. If you continue you may have access to information: Regarding HIV / AIDS; Provided by facilities licensed or operated by the [facility] Office of Mental Health; or Provided by the [facility] Office for People With Developmental Disabilities. If such information is present, then the following [facility] mandated warning applies: This information has been disclosed to you from confidential records which are protected by state law. State law prohibits you from making any further disclosure of this information without the specific written consent of the person to whom it pertains, or as otherwise permitted by law. Any unauthorized further disclosure in violation of state law may result in a fine or prison sentence or both. A general authorization for the release of medical or other information is NOT sufficient authorization for further disc losure. Family History Family Member Name Family Member Gender Family Member Status Date o f Status Description Data Source(s) Unknown Male Problem MEDENT ([facility]) Unknown Unknown Problem MEDENT ([facility]) Unknown Male Problem MEDENT ([facility] ) Encounters Encounter Providers Location Date Indications Data Source(s ) Office Visit, Est Pt., Level 3 PC [address] [place] [address] 03/09/2021 12:00:00 AM EDT eCW1 ([facility]) Office Visit, Est Pt., Level 4 PC [address] [place] [address] 02/02/2021 12:00:00 AM EDT eCW1 ([facility]) Unknown [address] [facility] [address] 01/31/2021 12:00:00 AM EDT eCW1 ([facility]) Unknown [address] [facility] [address] 01/27/2021 12:00:00 AM EDT eCW1 ([facility]) Unknown [address] [facility] [address] 12/30/2020 12:00:00 AM EDT eCW1 ([facility]) [place] [address] [facility] [address] 11/11/2020 12:00:00 AM EDT eCW1 ([facility]) [place] [address] [facility] [address] 07/26/2020 12:00:00 AM EST eCW1 ([facility]) Outpatient 07/21/2020 04:21:27 PM EST DocuTap ([facility]) Outpatient Attender: Uriel SEGURA 07/21/19 11:40:01 AM EST - 07/21/2020 12:48:13 PM EST [facility] ([facility] ) [place] [address] [facility] [address] 07/09/2020 12:00:00 AM EST eCW1 ([facility]) Immunizations Vaccine Date Status Description Data Source(s) COVID-19 VACCINE Pfizer 09/22/2020 12:00:00 AM EDT completed [facility] Vaccine Series Complete: YESThis Data wa s Submitted to [facility] Via [employer]. COVID-19 VACCINE Pfizer 09/01/2020 12:00:00 AM EST completed [facility] Vaccine Series Complete: NOThis Data was Submitted to [facility] Via [employer]. pneumococcal polysaccharide PPV23 03/03/2020 01:06:00 PM EDT comple mina eCW1 ([facility]) pneumococcal polysaccharide PPV23 03/03/2020 01:06:00 PM EDT comple mina eCW1 ([facility]) pneumococcal polysaccharide PPV23 03/03/2020 01:06:00 PM EDT comple mina eCW1 ([facility]) pneumococcal polysaccharide PPV23 03/03/2020 01:06:00 PM EDT comple mina eCW1 ([facility]) pneumococcal polysaccharide PPV23 03/03/2020 01:06:00 PM EDT comple mina eCW1 ([facility]) pneumococcal polysaccharide PPV23 03/03/2020 01:06:00 PM EDT comple mina eCW1 ([facility]) pneumococcal polysaccharide PPV23 03/03/2020 01:06:00 PM EDT comple mina eCW1 ([facility]) pneumococcal polysaccharide PPV23 03/03/2020 01:06:00 PM EDT comple mina eCW1 ([facility]) Medications Medication Brand Name Start Date Product Form Dose Route Admi nistrative Instructions Pharmacy Instructions Status Indications Reaction Description Data Source(s) Amitriptyline Hydrochloride 10 MG Oral Tablet Amitript yline HCl 10 MG Amitriptyline HCl 10 MG 02/02/2021 12:00:00 AM EDT 1.0 {tablet_at_b edtime} active Amitriptyline HCl 10 MG e CW1 ([facility]) Losartan Potassium 100 MG Oral Tablet Losartan Potassium 100 MG 02/02/2021 12:00:00 AM EDT 1.0 {tablet} active Lo sartan Potassium 100 MG eCW1 ([facility]) 10 mg 02/02/2021 12:00:00 AM EDT tablet 90 TAKE ONE TABLET BY MOUTH AT BEDTIME TAKE ONE TABLET BY MOUTH AT BEDTIME SOLD: 02/03/2021 [facility] 100 mg 02/02/2021 12:00:00 AM EDT tablet 90 TAKE ONE TABLET BY MOUTH EVERY DAY TAKE ONE TABLET BY MOUTH EVERY DAY SOLD: 02/03/2021 [facility] 10 mg 11/23/2020 12:00:00 AM EDT tablet 90 TAKE ONE TABLET BY MOUTH EVERY DAY TAKE ONE TABLET BY MOUTH EVERY DAY SOLD: 02/22/2021 [facility] 10 mg 11/23/2020 12:00:00 AM EDT tablet 90 TAKE ONE TABLET BY MOUTH EVERY DAY TAKE ONE TABLET BY MOUTH EVERY DAY SOLD: 11/24/2020 [facility] 125 mcg 11/22/2020 12:00:00 AM EDT tablet 90 TAKE ONE TABLET BY MOUTH EVERY DAY TAKE ONE TABLET BY MOUTH EVERY DAY SOLD: 11/24/2020 [facility] 100 mg 11/22/2020 12:00:00 AM EDT tablet 180 TAKE ONE TABLET BY MOUTH TWICE A DAY TAKE ONE TABLET BY MOUTH TWICE A DAY SOLD: 02/22/2021 [facility] 125 mcg 11/22/2020 12:00:00 AM EDT tablet 90 TAKE ONE TABLET BY MOUTH EVERY DAY TAKE ONE TABLET BY MOUTH EVERY DAY SOLD: 02/22/2021 [facility] 100 mg 11/22/2020 12:00:00 AM EDT tablet 180 TAKE ONE TABLET BY MOUTH TWICE A DAY TAKE ONE TABLET BY MOUTH TWICE A DAY SOLD: 11/24/2020 [facility] 50 mg 11/22/2020 12:00:00 AM EDT tablet 90 TAKE ONE TABLET BY MOUTH EVERY DAY TAKE ONE TABLET BY MOUTH EVERY DAY SOLD: 11/24/2020 [facility] 200 mg 11/22/2020 12:00:00 AM EDT tablet 180 TAKE ONE TABLET BY MOUTH TWICE A DAY TAKE ONE TABLET BY MOUTH TWICE A DAY SOLD: 11/24/2020 [facility] Labetalol hydrochloride 200 MG Oral Tablet LABETALOL HCL 11/22/2020 12:00:00 AM EDT tablet 180 TAKE ONE TABLET BY MOUTH TWI CE A DAY TAKE ONE TABLET BY MOUTH TWICE A DAY SOLD: 02/22/2021 [facility] Paroxetine Hydrochloride 10 MG Oral Tablet PAROXETINE HCL 11/11/2020 12:00:00 AM EDT tablet 30 TAKE ONE TABLET BY MOUTH AT BEDTIME TAKE ONE TABLET BY MOUTH AT BEDTIME SOLD: 01/30/2021 [facility] Paroxetine Hydrochloride 10 MG Oral Tablet PAROXETINE HCL 11/11/2020 12:00:00 AM EDT tablet 30 TAKE ONE TABLET BY MOUTH AT BEDTIME TAKE ONE TABLET BY MOUTH AT BEDTIME SOLD: 11/11/2020 [facility] PARoxetine HCl 10 MG PARoxetine HCl 10 MG 11/11/2020 12:00:00 AM EDT active PARoxetine HCl 10 MG eCW1 ([facility]) Paroxetine HCl 10 MG Paroxetine HCl 10 MG 11/11/2020 12:00:00 AM EDT active Paroxetine HCl 10 MG eCW1 ([facility]) Paroxetine Hydrochloride 10 MG Oral Tablet PAROXETINE HCL 11/11/2020 12:00:00 AM EDT tablet 30 TAKE ONE TABLET BY MOUTH AT BEDTIME TAKE ONE TABLET BY MOUTH AT BEDTIME SOLD: 12/31/2020 [facility] PARoxetine HCl 10 MG PARoxetine HCl 10 MG 11/11/2020 12:00:00 AM EDT active eCW1 ([facility]) PARoxetine HCl 10 MG PARoxetine HCl 10 MG 11/11/2020 12:00:00 AM EDT active PARoxetine HCl 10 MG eCW1 ([facility]) 100 mg 08/27/2020 12:00:00 AM EST tablet 180 TAKE ONE TABLET BY MOUTH TWICE A DAY TAKE ONE TABLET BY MOUTH TWICE A DAY SOLD: 08/29/2020 [facility] ezetimibe 10 MG Oral Tablet EZETIMIBE 07/10/2020 12:00:00 AM EST table t 90 TAKE ONE TABLET BY MOUTH ONCE A DAY TAKE ONE TABLET BY MOUTH ONCE A DAY SOLD: 07/11/2020 [facility] 10 mg 07/10/2020 12:00:00 AM EST tablet 48 TAKE ONE TABLET BY MOUTH ONCE A DAY TAKE ONE TABLET BY MOUTH ONCE A DAY SOLD: 10/07/2020 [facility] 100 mg 03/04/2020 12:00:00 AM EDT tablet 90 TAKE ONE TABLET BY MOUTH EVERY DAY TAKE ONE TABLET BY MOUTH EVERY DAY SOLD: 03/08/2020 [facility] 200 mg 03/04/2020 12:00:00 AM EDT tablet 180 TAKE ONE TABLET BY MOUTH TWICE A DAY TAKE ONE TABLET BY MOUTH TWICE A DAY SOLD: 08/29/2020 [facility] 50 mg 03/04/2020 12:00:00 AM EDT tablet 90 TAKE ONE TABLET BY MOUTH EVERY DAY TAKE ONE TABLET BY MOUTH EVERY DAY SOLD: 08/29/2020 [facility] 125 mcg 03/04/2020 12:00:00 AM EDT tablet 90 TAKE ONE TABLET BY MOUTH EVERY DAY TAKE ONE TABLET BY MOUTH EVERY DAY SOLD: 05/31/2020 [facility] 200 mg 03/04/2020 12:00:00 AM EDT tablet 180 TAKE ONE TABLET BY MOUTH TWICE A DAY TAKE ONE TABLET BY MOUTH TWICE A DAY SOLD: 03/08/2020 [facility] 125 mcg 03/04/2020 12:00:00 AM EDT tablet 90 TAKE ONE TABLET BY MOUTH EVERY DAY TAKE ONE TABLET BY MOUTH EVERY DAY SOLD: 08/29/2020 [facility] 50 mg 03/04/2020 12:00:00 AM EDT tablet 90 TAKE ONE TABLET BY MOUTH EVERY DAY TAKE ONE TABLET BY MOUTH EVERY DAY SOLD: 05/31/2020 [facility] 50 mg 03/04/2020 12:00:00 AM EDT tablet 90 TAKE ONE TABLET BY MOUTH EVERY DAY TAKE ONE TABLET BY MOUTH EVERY DAY SOLD: 03/08/2020 [facility] 125 mcg 03/04/2020 12:00:00 AM EDT tablet 90 TAKE ONE TABLET BY MOUTH EVERY DAY TAKE ONE TABLET BY MOUTH EVERY DAY SOLD: 03/08/2020 [facility] 200 mg 03/04/2020 12:00:00 AM EDT tablet 180 TAKE ONE TABLET BY MOUTH TWICE A DAY TAKE ONE TABLET BY MOUTH TWICE A DAY SOLD: 05/31/2020 [facility] 100 mg 12/10/2019 12:00:00 AM EDT tablet 90 TAKE ONE TABLET BY MOUTH TWICE A DAY TAKE ONE TABLET BY MOUTH TWICE A DAY SOLD: 07/11/2020 [facility] 100 mg 12/10/2019 12:00:00 AM EDT tablet 90 TAKE ONE TABLET BY MOUTH TWICE A DAY TAKE ONE TABLET BY MOUTH TWICE A DAY SOLD: 04/25/2020 [facility] 10 mg 10/17/2019 12:00:00 AM EDT tablet 90 TAKE ONE TABLET BY MOUTH EVERY DAY TAKE ONE TABLET BY MOUTH EVERY DAY SOLD: 04/13/2020 [facility] Insurance Providers Payer name Policy type / Coverage type Policy ID Covered constitution party ID Covered constitution party's relationship to jefferson Policy [place] Plan Information [place] Med[place] Part B [id number] Self [id number] [place] Med[place]ap [place] B [id number] Self [id number] [place] Med[place]ap Part [place] [id number] Self [id number] [place] Med[place]ap Part [place] [id number] Self [id number] [place] Med[place]ap Part [place] [id number] Self [id number] [place] Med[place]ap [place] [id number] Self [id number] [place] Med[place]ap Part B [id number] Self [id number] A Medicare [place] Med[place]ap Part B [id number] Self [id number] Medicare [place] Medicare Primary [id number] Self [id number] Medicare [place] Medicare Primary [id number] Self [id number] [place] Medigap Part B [id number] Self [id number] [place] Medigap Part B [id number] Self [id number] Blue Shield MCR Advantage Commercial [id number] Self V [id number] Blue Shield MCR Advantage Commercial [id number] Self V [id number] Blue Shield MCR Advantage Commercial [id number] Self V [id number] [facility] MEDICARE [id number] Janell [id number] Blue Shield MCR Advantage Commercial [id number] Self V [id number] Blue Shield MCR Advantage Commercial [id number] Self V [id number] Blue Shield MCR Advantage Commercial [id number] Self V [id number] Blue Shield MCR Advantage Commercial [id number] Self V [id number] [place] Medicare Part B [id number] Self [id number] [employer] Blue [employer] [place] Blue Cross/B lue Shield [id number] Self [id number] MEDICARE BLUE PPO 306 [id number] SP [id number] ANSI-Medicare Part B [id number] ANSI-Medicare Part B [id number] ANSI-Medicare Part B [id number] ANSI-Medicare Part B [id number] ANSI-Medicare Part B [id number] ANSI-Medicare Part B [id number] ANSI-Medicare Part B [id number] ANSI-Medicare Part B [id number] ANSI-Medicare Part B [id number] ANSI-Medicare Part B [id number] ANSI-Medicare Part B [id number] Medicare Blue Ppo Commercial [id number] Self [facility] Commercial [id number] Family Dependent Medicare [place]/[facility] Medicare Primary [id number] Self [employer] PPO O [id number] S [id number] MEDICARE C [id number] S [id number] A [employer]OM[place] [id number] SP [id number] MEDICARE [id number] SP [id number] A MEDICARE BLUE PPO 306 [id number] SP [id number] [employer] BCBS B [id number] S [id number] MEDICARE BLUE PPO 306 [id number] SP [id number] [employer] [place] Commercial [id number] Self [id number] Medicare Blue Ppo Commercial [id number] Self [id number] Medicare [place] Medicare Primary [id number] Self [id number] [facility]/[place] Commercial [id number] Family Dependent [id number] [place] [facility] [id number] Self [id number] [employer] [place] [id number] SP [id number] Medicare Blue Ppo Commercial [id number] Self [id number] Medicare [place] [facility] Medicare Primary [id number] Self [id number] ANSI-Medicare Part B [id number] ANSI-Medicare Part B [id number] ANSI-Medicare Part B [id number] ANSI-Medicare Part B [id number] [employer] [place] [id number] SP [id number] ANSI-Medicare Part B [id number] ANSI-Medicare Part B [id number] ANS-Medicare Part B [id number] ANS-Medicare Part B [id number] ANS-Medicare Part B [id number] ANSMedicare Part B [id number] ANSI-Medicare Part B [id number] Problems, Conditions, and Diagnoses Code Display Name Description Problem Type Effective Dates Data Source(s) F41.9 [id number] Anxiety Problem 11/11/2020 12:00:00 AM ED T eCW1 ([facility]) Surgeries/Procedures No Information Results ID Date Data Source [id number] 07/21/2020 12:00:00 AM EST [facility] Name Value Range Interpretation Code Description Data Lynne rce(s) Supporting Document(s) SARS coronavirus 2 RNA [Presence] in Res piratory specimen by BHAVESH with probe detection [facility] This lab was ordered by Lanie Maldonado and reported by [facility]. Procedure Social History Code Duration Value Status Description Data Source(s ) Smoking 03/09/2021 12:00:00 AM EDT Former Smoker completed Former Smoker eCW1 ([facility]) Smoking 02/02/2021 12:00:00 AM EDT Former Smoker completed Former Smoker eCW1 ([facility]) Smoking 11/11/2020 12:00:00 AM EDT Former Smoker completed Former Smoker eCW1 ([facility]) Smoking 11/11/2020 12:00:00 AM EDT Former Smoker completed Former Smoker eCW1 ([facility]) Smoking 11/11/2020 12:00:00 AM EDT Former Smoker completed Former Smoker eCW1 ([facility]) Smoking 11/11/2020 12:00:00 AM EDT Former Smoker completed Former Smoker eCW1 ([facility]) Vital Signs ID Date Data Source UNK Name Value Range Interpretation Code Description Data Source(s) Body weight 155.4 [lb_av] 155.4 [lb_av] eCW1 ([facility]) Body weight 70.49 kg 70.49 kg eCW1 ([facility]) Body height 63 [in_i] 63 [in_i] eCW1 ([facility]) Body mass index (BMI) [Ratio] 27.52 kg/m2 27.52 kg/m2 eCW1 ([facility]) Heart rate 89 /min 89 /min eCW1 ([facility]) Respiratory rate 18 /min 18 /min eCW1 ([facility]) Body temperature 97.9 [degF] 97.9 [degF] eCW1 ( [facility]) Systolic blood pressure 142 mm[Hg] 142 mm[Hg] e CW1 ([facility]) Diastolic blood pressure 88 mm[Hg] 88 mm[Hg] eCW1 ([facility]) Heart rate 84 /min 84 /min eCW1 ([facility]) Body weight 155 [lb_av] 155 [lb_av] eCW1 ([facility]) Body weight 70.31 kg 70.31 kg eCW1 ([facility]) Respiratory rate 18 /min 18 /min eCW1 ([facility]) Body height 63 [in_i] 63 [in_i] eCW1 ([facility]) Body mass index (BMI) [Ratio] 27.45 kg/m2 27.45 kg/m2 eCW1 ([facility]) Body temperature 97.7 [degF] 97.7 [degF] eCW1 ( [facility]) Systolic blood pressure 152 mm[Hg] 152 mm[Hg] e CW1 ([facility]) Diastolic blood pressure 98 mm[Hg] 98 mm[Hg] eCW1 ([facility]) Body weight 157.8 [lb_av] 157.8 [lb_av] eCW1 ([facility]) Body height 63 [in_i] 63 [in_i] eCW1 ([facility]) Body mass index (BMI) [Ratio] 27.95 kg/m2 27.95 kg/m2 eCW1 ([facility]) Heart rate 90 /min 90 /min eCW1 ([facility]) Respiratory rate 18 /min 18 /min eCW1 ([facility]) Body temperature 98.6 [degF] 98.6 [degF] eCW1 ( [facility]) Systolic blood pressure 138 mm[Hg] 138 mm[Hg] e CW1 ([facility]) Diastolic blood pressure 86 mm[Hg] 86 mm[Hg] eCW1 ([facility]) Patient Treatment Plan of Care Planned Activity Planned Date Details Description Data Source (s) Losartan Potassium 100 MG Oral Tablet 02/02/2021 12:00:00 AM EDT eCW1 ([facility]) Amitriptyline Hydrochloride 10 MG Oral Tablet 02/02/2021 12:00:00 A M EDT eCW1 ([facility]) PARoxetine HCl 10 MG 11/11/2020 12:00:00 AM EDT eCW1 ([facility]) Paroxetine HCl 10 MG 11/11/2020 12:00:00 AM EDT eCW1 ([facility]) PARoxetine HCl 10 MG 11/11/2020 12:00:00 AM EDT eCW1 ([facility]) PARoxetine HCl 10 MG 11/11/2020 12:00:00 AM EDT eCW1 ([facility])
[2021-04-17] MEDS ORDERED: ONDANSETRON 4MG/2ML VIAL IV ONE (01:15)
[2021-04-17] MEDS: MORPHINE 2 MG/ML 1ML VIAL (J2270) IV PRN ×2 (01:54→20:30)
[2021-04-17 02:00] LABS: BASO % 0.5 % (0.0-1.0); EOS # 0.1 10^3/uL (0.0-0.5); EOS % 1.5 % (0.0-3.0); HEMATOCRIT 44.2 % (36.0-47.0); HEMOGLOBIN 14.4 g/dl (12.0-15.5); LYMPH # 2.4 10^3/uL (1.5-5.0); LYMPH % 30.3 % (24.0-44.0); MEAN CORPUSCULAR HEMOGLOBIN 30.8 pg (27.0-33.0); MEAN CORPUSCULAR HGB CONC 32.6 g/dl (32.0-36.5); MEAN CORPUSCULAR VOLUME 94.4 fl (80.0-96.0); MONO # 0.6 10^3/uL (0.0-0.8); MONO % 7.5 % (2.0-8.0); NEUTROPHILS # 4.6 10^3/uL (1.5-8.5); NEUTROPHILS % 57.1 % (36.0-66.0); PLATELET COUNT, AUTOMATED 185 10^3/uL (150-450); RED BLOOD COUNT 4.68 10^6/uL (4.00-5.40)
--- NOTE | 2021-04-17 02:00 | REPVR ---
PROCEDURE INFORMATION: Exam: CT Head Without Contrast Exam date and time: 04/17/2021 1:11 AM Age: 86 years old Clinical indication: Injury or trauma; Fall; Blunt trauma (contusions or hematomas) TECHNIQUE: Imaging protocol: Computed tomography of the head without contrast. Radiation optimization: All CT scans at this facility use at least one of these dose optimization techniques: automated exposure control; mA and/or kV adjustment per patient size (includes targeted exams where dose is matched to clinical indication); or iterative reconstruction. COMPARISON: CR SPINE CERVICAL COMPL 05/07/2019 6:21 PM FINDINGS: Brain: There is mild patchy low attenuation of deep white matter. There is mild prominence of the peripheral sulci. Cerebral ventricles: There is slight prominence of the central ventricular system. Paranasal sinuses: Visualized sinuses are unremarkable. No fluid levels. Mastoid air cells: Visualized mastoid air cells are well aerated. Bones/joints: Unremarkable. No acute fracture. Soft tissues: Unremarkable. IMPRESSION: 1. Mild chronic ischemic white matter change and atrophy. 2. Otherwise negative noncontrast head CT. Electronically signed by: Jitendra Zuniga On 04/17/2021 01:59:26 AM
--- NOTE | 2021-04-17 02:05 | REPVR ---
PROCEDURE INFORMATION: Exam: CT Cervical Spine Without Contrast Exam date and time: 04/17/2021 1:11 AM Age: 86 years old Clinical indication: Injury or trauma; Fall; Blunt trauma TECHNIQUE: Imaging protocol: Computed tomography images of the cervical spine without contrast. Radiation optimization: All CT scans at this facility use at least one of these dose optimization techniques: automated exposure control; mA and/or kV adjustment per patient size (includes targeted exams where dose is matched to clinical indication); or iterative reconstruction. COMPARISON: CR SPINE CERVICAL COMPL 05/07/2019 6:21 PM FINDINGS: Vertebrae: Dextroscoliosis through the cervical spine with thoracic levoscoliosis. Small cervical rib on the left at C7. C2-C3: Minimal degenerative change of the left apophyseal joint with no spinal or foraminal stenosis. C3-C4: No significant disc protrusion. No severe spinal canal stenosis. No significant neural foraminal narrowing. C4-C5: Moderate interspace narrowing with very minimal posterior paracentral osteophytes and early degenerative changes of apophyseal joints with no spinal or foraminal stenosis. C5-C6: Moderate interspace narrowing with minimal posterior osteophytes and bilateral degenerative changes, greatest in a vertebral joints with mild right neural foraminal stenosis. C6-C7: No significant disc protrusion. No severe spinal canal stenosis. No significant neural foraminal narrowing. C7-T1: No significant disc protrusion. No severe spinal canal stenosis. No significant neural foraminal narrowing. Other bones/joints: Prominent calcific density within the joint space of the left shoulder. Degenerative changes of the TMJs. Soft tissues: Unremarkable. Lungs: Lung apices are normal. IMPRESSION: 1. Mild multilevel degenerative changes with mild right neural foraminal stenosis at C5-C6. Otherwise, no spinal or foraminal stenosis. 2. Otherwise negative CT cervical spine. No acute fracture or subluxation. Electronically signed by: Jitendra Zuniga On 04/17/2021 02:05:17 AM
[2021-04-17 02:11] LABS: INR 1.02; PROTHROMBIN TIME 13.8 SECONDS (12.7-14.5)
[2021-04-17 02:37] LABS: BLOOD UREA NITROGEN 14 MG/DL (7-18); CALCIUM LEVEL 9.9 MG/DL (8.8-10.2); CARBON DIOXIDE LEVEL 28 MEQ/L (21-32); CHLORIDE LEVEL 108 MEQ/L (98-107); CREATININE FOR GFR 0.73 MG/DL (0.55-1.30); GLOMERULAR FILTRATION RATE > 60.0 (>32); GLUCOSE, FASTING 99 MG/DL (70-100); POTASSIUM SERUM 4.2 MEQ/L (3.5-5.1); SODIUM LEVEL 140 MEQ/L (136-145)
--- NOTE | 2021-04-17 03:09 | REPVR ---
PROCEDURE INFORMATION: Exam: CT Abdomen And Pelvis Without Contrast Exam date and time: 04/17/2021 2:37 AM Age: 86 years old Clinical indication: Injury or trauma; Fall; Fracture, traumatic; Additional info: Multiple left sided pelvic fx's TECHNIQUE: Imaging protocol: Computed tomography of the abdomen and pelvis without contrast. Radiation optimization: All CT scans at this facility use at least one of these dose optimization techniques: automated exposure control; mA and/or kV adjustment per patient size (includes targeted exams where dose is matched to clinical indication); or iterative reconstruction. COMPARISON: CR Hip,AP,LAT to include Pelvis LEFT 04/17/2021 1:04 AM FINDINGS: Lungs: Bibasilar coarse interstitium with minimal fibro-atelectatic change and question of minimal infiltrates. There is some bilateral lower lobe endobronchial plugging. Mediastinal space: Mild distention of the mid esophagus although may reflect a diverticulum. Liver: Multiple hepatic calcifications are noted. Gallbladder and bile ducts: Normal. No calcified stones. No ductal dilation. Pancreas: Normal. No ductal dilation. Spleen: Splenic calcifications are noted. The liver and spleen are grossly intact on this noncontrast scan. No perihepatic or perisplenic fluid collections are identified. Adrenal glands: Normal. No mass. Kidneys and ureters: There are some right renal cysts measuring up to 4.5 cm with a Hounsfield measurement of -10 which appear to reflect simple cysts. No follow-up imaging is recommended. Probable nonobstructing right renal calculus. Stomach and bowel: There is colonic diverticulosis without evidence of diverticulitis. Appendix: A normal small appendix is probably seen. Intraperitoneal space: See "Spleen" finding. Vasculature: There is mild calcification of the abdominal aorta with extension into the iliac arteries. Lymph nodes: Calcified left hilar lymph nodes. Urinary bladder: Unremarkable as visualized. Reproductive: Unremarkable as visualized. Bones/joints: Mildly displaced fracture through the mid left inferior pubic ramus and slightly displaced fractures of the mid and lateral aspects of the left superior pubic ramus. There is a nondisplaced relatively horizontally oriented fracture extending through the left iliac wing from the level of the sciatic notch. Moderately prominent diffuse compression L1 with retropulsion of the posterosuperior aspect and mild diffuse and wedge compression T8 and possibly T7. Facet arthropathy is noted in the lower lumbar spine with degenerative disc changes and mild spinal stenosis at L3-L4. Soft tissues: Slight hemorrhagic infiltration in the left obturator externus and possibly obturator internus. IMPRESSION: 1. Food material and gas in the region of the mid esophagus which may reflect esophageal distention. Diverticulum is not excluded. 2. Old granulomatous disease of the chest, liver and spleen. 3. Fractures of the left inferior and superior pubic rami and nondisplaced fracture through the left iliac wing extending laterally from the sciatic notch. There is question of slight hemorrhagic infiltration involving the left obturator internus and externus musculature. 4. Bibasilar coarse pulmonary interstitium with minimal fibro-atelectatic change and question of minimal infiltrates. There is question of some endobronchial plugging in the lower lobes. 5. Moderately prominent diffuse compression of L1 with retropulsion of the posterosuperior aspect and mild diffuse and wedge compression of T8 and possibly T7 of uncertain age. 6. Probable nonobstructing right renal calculus. 7. Colonic diverticulosis without diverticulitis. COMMENTS: Consistent with the [employer]'s Incidental Findings Committee white paper (J Am Cristian Radiol 2018): Any incidental renal lesion less than 1 cm or classified as too small to characterize, or any incidental cystic renal lesion characterized as simple-appearing, is likely benign. No follow-up imaging is recommended for these lesions per consensus recommendations based on imaging criteria. Electronically signed by: Jitendra Zuniga On 04/17/2021 03:08:47 AM
--- NOTE | 2021-04-17 03:10 | REPVR ---
PROCEDURE INFORMATION: Exam: XR Left Hip Exam date and time: 04/17/2021 1:47 AM Age: 86 years old Clinical indication: Other: Left hip pain after fall TECHNIQUE: Imaging protocol: XR Left hip. Views: 2 or 3 views hip with pelvis when performed. COMPARISON: No relevant prior studies available. FINDINGS: Bones/joints: Displaced fractures of the left superior and inferior pubic rami and slightly distracted transverse fracture of the left iliac wing extending laterally from the sciatic notch. Degenerative changes are noted in the lower lumbar spine. The proximal left femur is intact. Soft tissues: Unremarkable. IMPRESSION: 1. Displaced fractures of the left superior and inferior pubic rami and slightly distracted fracture of the left iliac wing extending laterally from the sciatic notch. 2. Degenerative change of the lower lumbar spine. 3. Otherwise negative left hip. Electronically signed by: Jitendra Zuniga On 04/17/2021 03:10:42 AM
[2021-04-17 03:26] LABS: RSV AMPLIFICATION NEGATIVE (NEGATIVE)
--- OUTSIDE RECORDS SUMMARY | 2021-04-17 03:35 | CCD ---
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 Public Health law. If you continue you may have access to information: Regarding HIV / AIDS; Provided by facilities licensed or operated by the [facility] Office of Mental Health; or Provided by the [facility] Office for People With Developmental Disabilities. If such information is present, then the following [facility] mandated warning applies: This information has been [...] law may result in a fine or mcc sentence or both. A general authorization for the release of medical or other information is NOT sufficient authorization for further disc losure. Family History Family Member Name Family Member Gender Family Member Status Date o f Status Description Data Source(s) Unknown Male Problem MEDENT ([facility]) Unknown Unknown Problem MEDENT ([facility]) Unknown Male Problem MEDENT ([facility] ) Encounters Encounter Providers Location Date Indications Data Source(s ) Office Visit, Est Pt., Level [facility] [address] [place] [address] 03/09/2021 12:00:00 AM EDT eCW1 ([facility]) Office Visit, Est Pt., Level [address] PC [address] [place] [address] 02/02/2021 12:00:00 AM EDT eCW1 ([facility]) Unknown [address] [facility] [address] 01/31/2021 12:00:00 AM EDT eCW1 (Critical access hospital) Unknown [address] [facility] [address] 01/27/2021 12:00:00 AM EDT eCW1 (Critical access hospital) Unknown [address] [facility] [address] 12/30/2020 12:00:00 AM EDT eCW1 (Critical access hospital) Outpatient [address] [facility] [address] 11/11/2020 12:00:00 AM EDT eCW1 (Critical access hospital) Unknown [address] [facility] [address] 07/26/2020 12:00:00 AM EST eCW1 (Critical access hospital) Outpatient 07/21/2020 04:21:27 PM EST [facility] ([facility]) Outpatient Attender: Uriel SEGURA 07/21/19 11:40:01 AM EST - 07/21/2020 12:48:13 PM EST [facility] ([facility] ) Unknown [address] [facility] [address] 07/09/2020 12:00:00 AM EST eCW1 (Critical access hospital) Immunizations Vaccine Date Status Description Data Source(s) COVID-19 VACCINE Pfizer 09/22/2020 12:00:00 AM EDT completed [place] Vaccine Series Complete: YESThis Data wa s Submitted to [facility] Via [employer]. COVID-19 VACCINE Pfizer 09/01/2020 12:00:00 AM EST completed [place] Vaccine Series Complete: NOThis Data was Submitted to [facility] Via [employer]. pneumococcal polysaccharide PPV23 03/03/2020 01:06:00 PM EDT comple mina eCW1 ([facility]) pneumococcal polysaccharide PPV23 03/03/2020 01:06:00 PM EDT comple mina eCW1 ([facility]) pneumococcal polysaccharide PPV23 03/03/2020 01:06:00 PM EDT comple mina eCW1 ([facility]) pneumococcal polysaccharide PPV23 03/03/2020 01:06:00 PM EDT comple mina eCW1 ([facility]) pneumococcal polysaccharide PPV23 03/03/2020 01:06:00 PM EDT comple mina eCW1 ([facility]) pneumococcal polysaccharide PPV23 03/03/2020 01:06:00 PM EDT comple mina eCW1 ([facility]) pneumococcal polysaccharide PPV23 03/03/2020 01:06:00 PM EDT comple mina eCW1 ([facility]) pneumococcal polysaccharide PPV23 03/03/2020 01:06:00 PM EDT comple mina eCW1 ([facility]) Medications Medication Brand Name Start Date Product Form Dose Route Admi nistrative Instructions Pharmacy Instructions Status Indications Reaction Description Data Source(s) Amitriptyline Hydrochloride 10 MG Oral Tablet Amitript yline HCl 10 MG Amitriptyline HCl 10 MG 02/02/2021 12:00:00 AM EDT 1.0 {tablet_at_b edtime} active Amitriptyline HCl 10 MG e CW1 ([facility]) Losartan Potassium 100 MG Oral Tablet Losartan Potassium 100 MG 02/02/2021 12:00:00 AM EDT 1.0 {tablet} active Lo sartan Potassium 100 MG eCW1 ([facility]) 10 mg 02/02/2021 12:00:00 AM EDT tablet [...] EDT active PARoxetine HCl 10 MG eCW1 ([facility]) Paroxetine HCl 10 MG Paroxetine HCl 10 MG 11/11/2020 12:00:00 AM EDT active Paroxetine HCl 10 MG eCW1 ([facility]) Paroxetine Hydrochloride 10 MG Oral Tablet PAROXETINE HCL 11/11/2020 12:00:00 AM EDT tablet 30 TAKE ONE TABLET BY MOUTH AT BEDTIME TAKE ONE TABLET BY MOUTH AT BEDTIME SOLD: 12/31/2020 [facility] PARoxetine HCl 10 MG PARoxetine HCl 10 MG 11/11/2020 12:00:00 AM EDT active eCW1 ([facility]) PARoxetine HCl 10 MG PARoxetine HCl 10 MG 11/11/2020 12:00:00 AM EDT active PARoxetine HCl 10 MG eCW1 ([facility]) 100 mg 08/27/2020 12:00:00 AM EST tablet [...] type / Coverage type Policy ID Covered republican ID Covered republican's relationship to jefferson Policy [place] Plan Information [place] Med[place] B [id number] Self 0 [id number] [place] Med[place]ap [place] [id number] Self [id number] [place] Med[place]ap [place] [id number] Self [id number] [place] Med[place]ap Part [place] [id number] Self [id number] [place] Med[place]ap Part [place] [id number] Self [id number] [place] Med[place]ap Part B [id number] .[id number] Self 0 [id number] Medicare [place] Med[place]ap Part B [id number] Self [id number] A Medicare [place] Medigap Part B [id number] Self 0 [id number] Medicare [place] Medicare Primary [id number] Self [id number] Medicare [place] Medicare Primary [id number] Self [id number] [place] Medigap Part B [id number] Self [id number] [place] Medigap Part B [id number] Self [id number] Blue Shield MCR Advantage Commercial [id number] Self V [id number] Blue Shield MCR Advantage Commercial [id number] Self V [id number] Blue Shield MCR Advantage Commercial [id number] Self V [id number] [facility] MEDICARE [id number] Janell [id number] Blue Shield MCR Advantage Commercial [id number] Self V [id number] Blue Shield MCR Advantage Commercial [id number] Self V [id number] Blue Shield MCR Advantage Commercial [id number] Self V [id number] Blue Shield MCR Advantage Commercial [id number] Self V [id number] [place] Medicare Part B [id number] Self [id number] [employer] Blue [employer] [place] Blue Cross/B lue Shield [id number] Self [id number] MEDICARE BLUE PPO 306 [id number] SP [id number] ANSI-Medicare Part B [id number] ANSI-Medicare Part B [id number] ANSI-Medicare Part B [id number] ANSI-Medicare Part B [id number] ANSI-Medicare Part B [id number] ANSI-Medicare Part B [id number] ANSI-Medicare Part B [id number] ANSI-Medicare Part B [id number] ANSI-Medicare Part B [id number] ANSI-Medicare Part B [id number] ANSI-Medicare Part B [id number] Medicare Blue Ppo Commercial [id number] Self [facility]/[place] Commercial [id number] Family Dependent Medicare [place]/[facility] Medicare Primary [id number] Self [place]OM[place] PPO O [id number] S [id number] MEDICARE C [id number] S [id number] A POMCO [id number] SP [id number] MEDICARE [id number] SP [id number] A MEDICARE BLUE PPO 306 [id number] SP [id number] [employer] BCBS B [id number] S [id number] MEDICARE BLUE PPO 306 [id number] SP [id number] [employer] [place] Blues[place]ield Commercial [id number] Self [id number] Medicare Blue Ppo Commercial [id number] Self [id number] Medicare [place] Medicare Primary [id number] Self [id number] [facility]/[place] Commercial [id number] Family Dependent [id number] [place] [place] [facility] Commercial [id number] Self [id number] [employer] [place] [id number] SP [id number] Medicare Blue Ppo Commercial [id number] Self [id number] Medicare [place]/[facility] Medicare Primary [id number] Self [id number] ANSI-Medicare Part B [id number] ANSI-Medicare Part B [id number] ANSI-Medicare Part B [id number] ANSI-Medicare Part B [id number] [employer] [place] [id number] SP [id number] ANSI-Medicare Part B [id number] ANSI-Medicare Part B [id number] ANS-Medicare Part B [id number] ANS-Medicare Part B [id number] ANS-Medicare Part B [id number] ANSMedicare Part B [id number] ANSI-Medicare Part B [id number] Problems, Conditions, and Diagnoses Code Display Name Description Problem Type Effective Dates Data Source(s) F41.9 [id number] Anxiety Problem 11/11/2020 12:00:00 AM ED T eCW1 ([facility]) Surgeries/Procedures No Information Results ID Date Data Source [id number] 07/21/2020 12:00:00 AM EST [facility] Name Value Range Interpretation Code Description Data Lynne rce(s) Supporting Document(s) SARS coronavirus 2 RNA [Presence] in Res piratory specimen by BHAVESH with probe detection [facility] This lab was ordered by Lanie Maldonado and reported by [facility]. Procedure Social History Code Duration Value Status Description Data Source(s ) Smoking 03/09/2021 12:00:00 AM EDT Former Smoker completed Former Smoker eCW1 ([facility]) Smoking 02/02/2021 12:00:00 AM EDT Former Smoker completed Former Smoker eCW1 ([facility]) Smoking 11/11/2020 12:00:00 AM EDT Former Smoker completed Former Smoker eCW1 ([facility]) Smoking 11/11/2020 12:00:00 AM EDT Former Smoker completed Former Smoker eCW1 ([facility]) Smoking 11/11/2020 12:00:00 AM EDT Former Smoker completed Former Smoker eCW1 ([facility]) Smoking 11/11/2020 12:00:00 AM EDT Former Smoker completed Former Smoker eCW1 ([facility]) Vital Signs ID Date Data Source UNK Name Value Range Interpretation Code Description Data Source(s) Body weight 155.4 [lb_av] 155.4 [lb_av] eCW1 ([facility]) Body weight 70.49 kg 70.49 kg eCW1 ([facility]) Body height 63 [in_i] 63 [in_i] eCW1 ([facility]) Body mass index (BMI) [Ratio] 27.52 kg/m2 27.52 kg/m2 eCW1 ([facility]) Heart rate 89 /min 89 /min eCW1 ([facility]) Respiratory rate 18 /min 18 /min eCW1 ([facility]) Body temperature 97.9 [degF] 97.9 [degF] eCW1 ( [facility]) Systolic blood pressure 142 mm[Hg] 142 mm[Hg] e CW1 ([facility]) Diastolic blood pressure 88 mm[Hg] 88 mm[Hg] eCW1 ([facility]) Body weight 155 [lb_av] 155 [lb_av] eCW1 ([facility]) Body weight 70.31 kg 70.31 kg eCW1 ([facility]) Body height 63 [in_i] 63 [in_i] eCW1 ([facility]) Body mass index (BMI) [Ratio] 27.45 kg/m2 27.45 kg/m2 eCW1 ([facility]) Heart rate 84 /min 84 /min eCW1 ([facility]) Respiratory rate 18 /min 18 /min eCW1 ([facility]) Body temperature 97.7 [degF] 97.7 [degF] eCW1 ( [facility]) Systolic blood pressure 152 mm[Hg] 152 mm[Hg] e CW1 ([facility]) Diastolic blood pressure 98 mm[Hg] 98 mm[Hg] eCW1 ([facility]) Body weight 157.8 [lb_av] 157.8 [lb_av] eCW1 ([facility]) Body height 63 [in_i] 63 [in_i] eCW1 ([facility]) Body mass index (BMI) [Ratio] 27.95 kg/m2 27.95 kg/m2 eCW1 ([facility]) Heart rate 90 /min 90 /min eCW1 ([facility]) Respiratory rate 18 /min 18 /min eCW1 ([facility]) Body temperature 98.6 [degF] 98.6 [degF] eCW1 ( [facility]) Systolic blood pressure 138 mm[Hg] 138 mm[Hg] e CW1 ([facility]) Diastolic blood pressure 86 mm[Hg] 86 mm[Hg] eCW1 ([facility]) Patient Treatment Plan of Care Planned Activity Planned Date Details Description Data Source (s) Losartan Potassium 100 MG Oral Tablet 02/02/2021 12:00:00 AM EDT eCW1 ([facility]) Amitriptyline Hydrochloride 10 MG Oral Tablet 02/02/2021 12:00:00 A M EDT eCW1 ([facility]) PARoxetine HCl 10 MG 11/11/2020 12:00:00 AM EDT eCW1 ([facility]) Paroxetine HCl 10 MG 11/11/2020 12:00:00 AM EDT eCW1 ([facility]) PARoxetine HCl 10 MG 11/11/2020 12:00:00 AM EDT eCW1 ([facility]) PARoxetine HCl 10 MG 11/11/2020 12:00:00 AM EDT eCW1 ([facility])
[2021-04-17] MEDS ORDERED: MIRALAX *UNIT DOSE* 17GM PACKET PO PRN (03:55)
[2021-04-17] MEDS ORDERED: MOM 30ML SUSPENSION UDC PO PRN (03:55)
[2021-04-17] MEDS ORDERED: MAALOX 30 ML SUSP *UDC PO PRN (03:55)
--- NOTE | 2021-04-17 04:00 | HPEPDOC ---
[facility] Medical History & Physical Date of Admission Apr 17, 2021 Date of Service: Apr 17, 2021 Primary Care Physician: Angelica Mendez Attending Physician: BRADY OAKES MD History and Physical TIME OF SERVICE: 415am CHIEF COMPLAINT: fall HISTORY OF PRESENT ILLNESS: Just after getting up from a chair to walk, an 86 yr old F, tripped and fell on to her right hip. She denied having prodromal dizziness, chest pain, shortness of breath, vomiting of diarrhea. She doesnt think her legs feel weaker than usual but admits to having an unsteady gait. As a result of the fall she developed 8/10 left hip pain. REVIEW OF SYSTEMS: 10-point review of systems negative except as listed in HPI PAST MEDICAL/ SURGICAL HISTORY: Gout, essential HTN, DLP, Hypothyroidism, pre- DM, Osteoporosis (L1 & T8 fx), Vitamin D deficiency, diverticulosis, resection of hyperplastic colonic polyps, right ankle surgery, Hyperparathyroidism (declined referral), Involutional ptosis managed w blepharoplasties FAMILY HISTORY: Father multiple myeloma / Son seizure disorder & developmental disability SOCIAL HISTORY: Former smoker who doesnt drink alcohol ALLERGIES: Please see below. HOME MEDICATIONS: Please see below. PHYSICAL EXAMINATION: Vital Signs Date Time Temp Pulse Resp B/P (MAP) Pulse Ox O2 Delivery O2 Flow Rate FiO2 04/17/21 01:00 75 181/85 (117) 96 Room Air 04/17/21 01:54 16 04/17/21 02:00 97.3 04/17/21 04:00 2.0 GENERAL APPEARANCE: well-nourished and developed/ NAD HEENT: EOMI / MMM&P / NC in place CARDIOVASCULAR: RRR/NMRG / no BLE edema LUNGS: CTAB on RA ABDOMEN: contour flat MUSCULOSKELETAL: NCAT / TARYN in arms and right leg, TARYN in left leg limited by pain INTEGUMENT: not flushed or diaphoretic NEUROLOGICAL: CN 2-12 grossly intact / speech not dysarthric PSYCHIATRIC: A&O x 3 / able to understand and follow all commands LABORATORY DATA: IMAGING: CT head IMPRESSION: 1. Mild chronic ischemic white matter change and atrophy. 2. Otherwise negative noncontrast head CT. CT cervical spine IMPRESSION: 1. Mild multilevel degenerative changes with mild right neural foraminal stenosis at C5-C6. Otherwise, no spinal or foraminal stenosis. 2. Otherwise negative CT cervical spine. No acute fracture or subluxation. Hip/Pelvis XR IMPRESSION: 1. Displaced fractures of the left superior and inferior pubic rami and slightly distracted fracture of the left iliac wing e xtending laterally from the sciatic notch. 2. Degenerative change of the lower lumbar spine. 3. Otherwise negative left hip. CT abd/pelvis IMPRESSION: 1. Food material and gas in the region of the mid esophagus which may reflect esophageal distention. Diverticulum is not excluded. 2. Old granulomatous disease of the chest, liver and spleen. 3. Fractures of the left inferior and superior pubic rami and nondisplaced fracture through the left iliac wing extending laterally from the sciatic notch. There is question of slight hemorrhagic infiltration involving the left obturator internus and ext ernus musculature. 4. Bibasilar coarse pulmonary interstitium with minimal fibro-atelectatic change and question of minimal infiltrates. There is question of some endobronchial plugging in the lower lobes. 5. Moderately prominent diffuse compression of L1 with retropulsion of the posterosuperior aspect and mild diffuse and wedge compression of T8 and possibly T7 of uncertain age. 6. Probable nonobstructing right renal calculus. 7. Colonic diverticulosis without diverticulitis. MICROBIOLOGY: Respiratory panel negative ASSESSMENT: Ms. Murcia is an 86 yr old w Gout, HTN, DLP, Hypothyroidism, Osteoporosis (L1 & T8 fx), Vitamin D deficiency & primary ? hyperparathyroidism who is admitted for left pubic rami and iliac fractures. PLAN: 1 Left inferior and superior pubic rami fractures / Left iliac fracture Mechanical fall may have been due to difficulties with balancing Plan: Admit medical floor/ bed rest w fall precautions pending assessment / Percocet with stool softeners 2 Osteoporosis Plan: Calcium carbonate / Vitamin D / because her GFR is wnl and her DEXA scans have confirmed that her T score is low the day time team may consider starting her on a Bisphosphonate prior to discharge / because she has a hx of multiple vertebral fx we will also check SPEP alkaline phosphatase and LFTs (if ALP is elevated in isolation of other LFTs the source of the fracture could be bone and metastatic disease) 3 Suspected primary hyperparathyroidism -PTH & Ca ++ elevated in October Plan: recheck serum Ca, PTH and Phosphorus, hold losartan and check Urine Ca, Urine Cr tomorrow (if the Urine Ca : Cr ratio is >0.01 this will rule out familial hypocalciuric hypercalcemia and confirm the diagnosis of primary hyperparathyroidism ) 4 Essential HTN Plan: labetalol / hold losartan pending urine calcium (bc it increases urine calcium excretion) / add hydralazine PRN 5 Gout Plan: allopurinol 6 Hypothyroidism Plan: levothyroxine 7 DLP Plan: Zetia DVT px w lovenox Disposition: home after more than 2 midnights stay Home Medications Scheduled Allopurinol (Allopurinol) 100 Mg Tablet, 100 MG PO BID Amitriptyline HCl (Amitriptyline HCl) 10 Mg Tablet, 10 MG PO QHS Aspirin (Aspirin EC) 81 Mg Tablet.dr, 81 MG PO QHS Cholecalciferol (Vitamin D3) (Vitamin D3) 1,000 Unit Tablet, 1,000 UNITS PO QHS Docusate Sodium (Docusate Sodium) 100 Mg Capsule, 200 MG PO QHS Ezetimibe (Ezetimibe) 10 Mg Tablet, 10 MG PO QHS Flaxseed Oil (Flaxseed) 1,000 Mg Capsule, 1 CAP PO QAM Labetalol HCl (Labetalol HCl) 200 Mg Tablet, 200 MG PO BID Levothyroxine Sodium (Levothyroxine Sodium) 125 Mcg Tablet, 125 MCG PO QAM Losartan Potassium (Losartan Potassium) 100 Mg Tablet, 100 MG PO QHS Allergies Coded Allergies: Penicillins (Verified Allergy, Intermediate, RASH, 12/02/18) hydrochlorothiazide (Verified Adverse Reaction, Intermediate, GOUT, 12/02/18) indapamide (Verified Adverse Reaction, Intermediate, ELEVATED CALCIUM, 12/02/18) simvastatin (Verified Adverse Reaction, Intermediate, MYALGIA, 12/02/18) A-FIB/CHADSVASC A-FIB History Current/History of A-Fib/PAF?: No Current PO Anticoag Therapy: No BRADY OAKES MD Apr 17, 2021 04:00
--- OUTSIDE RECORDS SUMMARY | 2021-04-17 04:06 | CCD ---
Author Author [facility] Organization [facility] Address Unknown Phone Unavailable Care Team Providers Care Commercial Collections Specialist Name Role Phone Maring, Uriel PA Unavailable [...] is protected by Article 27-F of the [facility] Public Health law. If you continue you may have access to information: Regarding HIV / AIDS; Provided by facilities licensed or operated by the [facility] Office of Mental Health; or Provided by the [facility] Office for People With Developmental Disabilities. If such information is present, then the following [facility] mandated warning applies: This information has [...] law may result in a fine or care home sentence or both. A general authorization for the release of medical or other information is NOT sufficient authorization for further disc losure. Family History Family Member Name Family Member Gender Family Member Status Date o f Status Description Data Source(s) Unknown Male Problem MEDENT ([facility]) Unknown Unknown Problem MEDENT ([facility]) Unknown Male Problem MEDENT ([facility] ) Encounters Encounter Providers Location Date Indications Data Source(s ) Office Visit, Est Pt., Level 3 [facility] [address] [place] [address] 03/09/2021 12:00:00 AM EDT eCW1 ([facility]) Office Visit, Est Pt., Level 4 PC [address] [place] [address] 02/02/2021 12:00:00 AM EDT eCW1 ([facility]) Unknown [address] [facility] [address] 01/31/2021 12:00:00 AM EDT eCW1 ([facility]) Unknown [address] [facility] [address] 01/27/2021 12:00:00 AM EDT eCW1 ([facility]) Unknown [address] [facility] [address] 12/30/2020 12:00:00 AM EDT eCW1 ([facility]) Outpatient [address] [facility] [address] 11/11/2020 12:00:00 AM EDT eCW1 ([facility]) [place] [address] [facility] [address] 07/26/2020 12:00:00 AM EST eCW1 ([facility]) Outpatient 07/21/2020 04:21:27 PM EST DocuTap ([facility]) Outpatient Attender: Uriel SEGURA 07/21/19 11:40:01 AM EST - 07/21/2020 12:48:13 PM EST [facility] ([facility] ) [place] [address] [facility] [address] 07/09/2020 12:00:00 AM EST eCW1 ([facility]) Immunizations Vaccine Date Status Description Data Source(s) COVID-19 VACCINE Pfizer 09/22/2020 12:00:00 AM EDT completed [place] Vaccine Series Complete: YESThis Data wa s Submitted to [facility] Via [place]. COVID-19 VACCINE Pfizer 09/01/2020 12:00:00 AM EST completed [place] Vaccine Series Complete: NOThis Data was Submitted to [facility] Via Ininal. pneumococcal polysaccharide PPV23 03/03/2020 01:06:00 PM EDT [...] PARoxetine HCl 10 MG eCW1 ([facility]) Paroxetine HCl 10 MG Paroxetine HCl 10 MG 11/11/2020 12:00:00 AM EDT active Paroxetine HCl 10 MG eCW1 ([facility]) Paroxetine Hydrochloride 10 MG Oral Tablet PAROXETINE [...] PARoxetine HCl 10 MG eCW1 ([facility]) 100 mg 08/27/2020 12:00:00 AM EST tablet [...] type / Coverage type Policy ID Covered green party ID Covered green party's relationship to jefferson Policy [place] Plan Information [place] Med[place]ap Part B [id number] Self [id number] [place] Med[place]ap [place] [id number] Self [id number] [place] Med[place]ap Part [place] [id number] Self [id number] Medicare [place] Medigap Part B [id number] Self [id number] Medicare [place] Medigap Part B [id number] Self [id number] Medicare [place] Med[place]ap Part B [id number] Self [id number] Medicare [place] Medigap Part B [id number] .[id number] Self [id number] Medicare [place] Medigap Part B [id number] Self [id number] Medicare [place] Medicare Primary [id number] Self [id number] Medicare [place] Medicare Primary [id number] Self [id number] [place] Medigap Part B [id number] Self [id number] [place] Medigap Part B [id number] Self [id number] Blue Shield MCR Advantage Commercial [id number] Self V [id number] Blue Shield MCR Advantage Commercial [id number] Self V [id number] Blue Shield MCR Advantage Commercial [id number] Self V [id number] [facility] MEDICARE [id number] Janell [id number] Blue Shield MCR Advantage Commercial [id number] Self V [id number] Blue Shield MCR Advantage Commercial [id number] Self V [id number] Blue Shield MCR Advantage Commercial [id number] Self V [id number] Blue Shield MCR Advantage Commercial [id number] Self V [id number] [place] Medicare Medicare Part B [id number] Self [id number] [employer] Blue [employer] and Blue Shield - [place] Blue Cross/B lue Shield [id number] Self [id number] ANSI-Medicare Part B [id number] MEDICARE BLUE PPO 306 [id number] SP [id number] ANSI-Medicare Part B [id number] ANSI-Medicare Part B [id number] ANSI-Medicare Part B [id number] ANSI-Medicare Part B [id number] ANSI-Medicare Part B [id number] ANSI-Medicare Part B [id number] ANSI-Medicare Part B [id number] ANSI-Medicare Part B [id number] ANSI-Medicare Part B [id number] ANSI-Medicare Part B [id number] ANSI-Medicare Part B [id number] Medicare Blue Ppo Commercial [id number] Self [facility] Commercial [id number] Family Dependent Medicare [facility] Medicare Primary [id number] Self POMCO PPO O [id number] S [id number] MEDICARE C [id number] S [id number] A POMCO [id number] SP [id number] MEDICARE [id number] SP [id number] A MEDICARE BLUE PPO 306 [id number] SP [id number] MEDICARE BLUE PPO 306 [id number] SP [id number] [employer]CE[employer] BCBS B [id number] S [id number] MEDICARE BLUE PPO 306 [id number] SP [id number] [employer] [place] Blueshield Commercial [id number] Self [id number] Medicare Blue Ppo Commercial [id number] Self [id number] Medicare [place] Medicare Primary [id number] Self [id number] [facility] Commercial [id number] Family Dependent [id number] [facility] [id number] Self [id number] [employer] [place] [id number] SP [id number] Medicare Blue o Commercial [id number] Self [id number] Medicare [place] Medicare Primary [id number] Self [id number] ANSI-Medicare Part B [id number] ANSI-Medicare Part B [id number] ANSI-Medicare Part B [id number] ANSI-Medicare Part B [id number] [employer] [place] [id number] SP [id number] ANSI-Medicare Part B [id number] ANSI-Medicare Part B [id number] ANSI-Medicare Part B [id number] ANSI-Medicare Part B [id number] ANSI-Medicare Part B [id number] ANSI-Medicare Part B [id number] Problems, Conditions, and Diagnoses Code Display Name Description Problem Type Effective Dates Data Source(s) F41.9 [id number] Anxiety Problem 11/11/2020 12:00:00 AM ED T eCW1 ([facility]) Surgeries/Procedures No Information Results ID Date Data Source [id number] 07/21/2020 12:00:00 AM EST [facility] Name Value Range Interpretation Code Description Data Lynne rce(s) Supporting Document(s) SARS coronavirus 2 RNA [Presence] in Res piratory specimen by BHAVESH with probe detection POSITIVE [place] This lab was ordered by Lanie Maldonado and reported by [facility]. Procedure Social History Code Duration Value [...] Body weight 155.4 [lb_av] 155.4 [lb_av] eCW1 ([facility]) Body weight 70.49 kg 70.49 kg eCW1 ([facility]) Body height 63 [in_i] 63 [in_i] eCW1 ([facility]) Body mass index (BMI) [Ratio] 27.52 kg/m2 27.52 kg/m2 eCW1 ([facility]) Heart rate 89 /min 89 /min eCW1 ([facility]) Respiratory rate 18 /min 18 /min eCW1 ([facility]) Body temperature 97.9 [degF] 97.9 [degF] eCW1 ( [facility]) Systolic blood pressure 142 mm[Hg] 142 mm[Hg] e CW1 ([facility]) Diastolic blood pressure 88 mm[Hg] 88 mm[Hg] eCW1 ([facility]) Body weight 155 [lb_av] 155 [lb_av] eCW1 ([facility]) Body weight 70.31 kg 70.31 kg eCW1 ([facility]) Body height 63 [in_i] 63 [in_i] eCW1 ([facility]) Body mass index (BMI) [Ratio] 27.45 kg/m2 27.45 kg/m2 eCW1 ([facility]) Heart rate 84 /min 84 /min eCW1 ([facility]) Respiratory rate 18 /min 18 /min eCW1 ([facility]) Body temperature 97.7 [degF] 97.7 [degF] eCW1 ( [facility]) Systolic blood pressure 152 mm[Hg] 152 mm[Hg] e CW1 ([facility]) Diastolic blood pressure 98 mm[Hg] 98 mm[Hg] eCW1 ([facility]) Body weight 157.8 [lb_av] 157.8 [lb_av] eCW1 ([facility]) Body height 63 [in_i] 63 [in_i] eCW1 ([facility]) Body mass index (BMI) [Ratio] 27.95 kg/m2 27.95 kg/m2 eCW1 ([facility]) Heart rate 90 /min 90 /min eCW1 ([facility]) Respiratory rate 18 /min 18 /min eCW1 ([facility]) Body temperature 98.6 [degF] 98.6 [degF] [...]
[2021-04-17] MEDS ORDERED: ASPI81TA26 PO (04:34)
[2021-04-17] MEDS ORDERED: AMIT10TA7 PO (04:34)
[2021-04-17] MEDS ORDERED: D31000TA2 PO (04:34)
[2021-04-17] MEDS ORDERED: DOCU100C16 PO (04:35)
[2021-04-17] MEDS ORDERED: GNP1000C11 PO (04:35)
[2021-04-17] MEDS ORDERED: LOSA100T50 PO (04:37)
[2021-04-17] MEDS ORDERED: HOME MED LIST COMPLETE! XX SCH (04:40)
[2021-04-17] MEDS ORDERED: **hydrALAZINE** 10 MG TAB PO PRN (04:45)
[2021-04-17 06:40] LABS: HEMATOCRIT 40.8 % (36.0-47.0); HEMOGLOBIN 13.3 g/dl (12.0-15.5); MEAN CORPUSCULAR HEMOGLOBIN 30.6 pg (27.0-33.0); MEAN CORPUSCULAR HGB CONC 32.6 g/dl (32.0-36.5); MEAN CORPUSCULAR VOLUME 93.8 fl (80.0-96.0); PLATELET COUNT, AUTOMATED 177 10^3/uL (150-450); RED BLOOD COUNT 4.35 10^6/uL (4.00-5.40); WHITE BLOOD COUNT 8.8 10^3/uL (4.0-10.0)
[2021-04-17 07:07] LABS: ALBUMIN 3.3 GM/DL (3.2-5.2); ALT/SGPT 16 U/L (12-78); BILIRUBIN,DIRECT 0.1 MG/DL (0.0-0.2); BILIRUBIN,TOTAL 0.5 MG/DL (0.2-1.0); BLOOD UREA NITROGEN 13 MG/DL (7-18); CALCIUM LEVEL 9.2 MG/DL (8.8-10.2); CARBON DIOXIDE LEVEL 28 MEQ/L (21-32); CHLORIDE LEVEL 108 MEQ/L (98-107); CREATININE FOR GFR 0.68 MG/DL (0.55-1.30); GLOMERULAR FILTRATION RATE > 60.0 (>32); GLUCOSE, FASTING 100 MG/DL (70-100); PHOSPHORUS LEVEL 2.3 MG/DL (2.5-4.9); POTASSIUM SERUM 4.2 MEQ/L (3.5-5.1); SODIUM LEVEL 140 MEQ/L (136-145); TOTAL PROTEIN 6.1 GM/DL (6.4-8.2)
[2021-04-17] MEDS: CALCIUM CARBONATE 500 MG CHEW U/D PO SCH ×3 (09:14→20:31)
[2021-04-17] MEDS: SENNA 8.6 MG TAB (SENOKOT) PO SCH ×2 (09:14→20:31)
[2021-04-17] MEDS: LABETALOL 200 MG TAB PO SCH ×2 (09:15→20:31)
[2021-04-17] MEDS: allopurinoL 100 MG TAB PO SCH ×2 (09:15→20:32)
[2021-04-17] MEDS: PERCOCET 5MG/325MG TAB PO PRN ×2 (09:15→17:29)
[2021-04-17] MEDS: LEVOTHYROXINE 125MCG TABLET (0.125MG) PO SCH (09:15)
[2021-04-17] MEDS: ENOXAPARIN 40MG/0.4ML SYRINGE (J1650 PER 10MG) SC SCH (09:16)
--- NOTE | 2021-04-17 10:55 | CR.PDOC ---
General Date of Consultation: Apr 17, 2021 Attending Physician: ANGELIA BLAKE MD Consultation History and Physical TIME OF SERVICE: 415am CHIEF COMPLAINT: fall HISTORY OF PRESENT ILLNESS: Just after getting up from a chair to walk, an 86 yr old F, tripped and fell on to her right hip. She denied having prodromal dizziness, chest pain, shortness of breath, vomiting of diarrhea. Seen in emergency and x-rays show superior and inferior pubic rami fracture and iliac wing fracture. Iliac wing fracture is nondisplaced. Patient unable to weight-bear left side. REVIEW OF SYSTEMS: 10-point review of systems negative except as listed in HPI PAST MEDICAL/ SURGICAL HISTORY: Gout, essential HTN, DLP, Hypothyroidism, pre- DM, Osteoporosis (L1 & T8 fx), Vitamin D deficiency, diverticulosis, resection of hyperplastic colonic polyps, right ankle surgery, Hyperparathyroidism (declined referral), Involutional ptosis managed w blepharoplasties FAMILY HISTORY: Father multiple myeloma / Son seizure disorder & developmental disability SOCIAL HISTORY: Former smoker who doesnt drink alcohol ALLERGIES: Please see below. HOME MEDICATIONS: Please see below. PHYSICAL EXAMINATION: Vital Signs GENERAL APPEARANCE: well-nourished and developed/ NAD HEENT: EOMI / MMM&P / NC in place CARDIOVASCULAR: No chest pain LUNGS: Breathing comfortably on room air ABDOMEN: Soft nontender MUSCULOSKELETAL: Patient lying in bed. Examination of lower extremities Complaining of left-sided posterior pelvic pain along the iliac wing Leg lengths are equal Gentle range of motion of the left hip causes some pain along the iliac wing Good active range of motion of the knee and ankle Sensory intact to light touch Good pulses and capillary refill distally INTEGUMENT: Normal NEUROLOGICAL: Sensory intact to light touch. No clonus ankles. Good active range of motion of ankles and knee PSYCHIATRIC: A&O x 3 / able to understand and follow all commands LABORATORY DATA: IMAGING: CT abd/pelvis IMPRESSION: 1. Food material and gas in the region of the mid esophagus which may reflect esophageal distention. Diverticulum is not excluded. 2. Old granulomatous disease of the chest, liver and spleen. 3. Fractures of the left inferior and superior pubic rami and nondisplaced fracture through the left iliac wing extending laterally from the sciatic notch. There is question of slight hemorrhagic infiltration involving the left obturator internus and externus musculature. 4. Bibasilar coarse pulmonary interstitium with minimal fibro-atelectatic change and question of minimal infiltrates. There is question of some endobronchial plugging in the lower lobes. 5. Moderately prominent di ffuse compression of L1 with retropulsion of the posterosuperior aspect and mild diffuse and wedge compression of T8 and possibly T7 of uncertain age. 6. Probable nonobstructing right renal calculus. 7. Colonic diverticulosis without diverticulitis. ASSESSMENT: 86-year-old female, medical problems as above, most likely osteoporotic, fall from a standing height, fracture of iliac wing and superior and inferior pubic rami. Unable to weight-bear due to pain. Discussed risk and benefits of nonoperative versus operative management. Inherent risk of operative management for plating of the iliac wing. Significant risk given her age of 86. Risk of nonoperative management include sequelae of immobilization, DVTs PEs pneumonias pressure sores. After discussion we will pursue conservative management. Plan: Toe-touch weightbearing left lower extremity Weightbearing as tolerated right lower extremity Patient is able to sit up in bed or in chair Allow passive assist range of motion of the hip DVT prophylaxis as per medicine until she is mobilized possibly 30 days Repeat x-rays pelvis in 1 week Vital Signs/I&O Vital Signs Date Time Temp Pulse Resp B/P (MAP) Pulse Ox O2 Delivery O2 Flow Rate FiO2 04/17/21 10:30 86 132/74 (93) 92 Nasal Cannula 04/17/21 09:15 1.0 04/17/21 09:15 20 04/17/21 02:00 97.3 Laboratory Data Labs 24H Laboratory Tests 2 04/17/21 01:50: Immature Granulocyte % (Auto) 3.1H, Neutrophils (%) (Auto) 57.1, Lymphocytes (%) (Auto) 30.3, Monocytes (%) (Auto) 7.5, Eosinophils (%) (Auto) 1.5, Basophils (%) (Auto) 0.5, Neutrophils # (Auto) 4.6, Lymphocytes # (Auto) 2.4, Monocytes # (Auto) 0.6, Eosinophils # (Auto) 0.1, Basophils # (Auto) 0.0, Nucleated Red Blood Cells % (auto) 0.0, Prothrombin Time 13.8, Prothromb Time International Ratio 1.02, Activated Partial Thromboplast Time 36.0, Anion Gap 4L, Glomerular Filtration Rate > 60.0, Calcium Level 9.9 04/17/21 02:32: Coronavirus (COVID-19)(PCR) NEGATIVE, Influenza Type A (RT-PCR) NEGATIVE, Influenza Type B (RT-PCR) NEGATIVE, Respiratory Syncytial Virus (PCR) NEGATIVE 04/17/21 06:16: Nucleated Red Blood Cells % (auto) 0.0, Anion Gap 4L, Glomerular Filtration Rate > 60.0, Calcium Level 9.2, Phosphorus Level 2.3L, Total Bilirubin 0.5, Direct Bilirubin 0.1, Aspartate Amino Transf (AST/SGOT) 16, Alanine Aminotransferase (ALT/SGPT) 16, Alkaline Phosphatase 60, Total Protein 6.1L, Total Protein (PEP) 6.1L, Albumin 3.3, Albumin/Globulin Ratio 1.2 CBC/BMP Laboratory Tests 04/17/21 01:50 04/17/21 06:16 Allergies Coded Allergies: Penicillins (Verified Allergy, Intermediate, RASH, 12/02/18) hydrochlorothiazide (Verified Adverse Reaction, Intermediate, GOUT, 12/02/18) indapamide (Verified Adverse Reaction, Intermediate, ELEVATED CALCIUM, 12/02/18) simvastatin (Verified Adverse Reaction, Intermediate, MYALGIA, 12/02/18) Home Medications Scheduled Allopurinol (Allopurinol) 100 Mg Tablet, 100 MG PO BID, (Reported) Amitriptyline HCl (Amitriptyline HCl) 10 Mg Tablet, 10 MG PO QHS, (Reported) Aspirin (Aspirin EC) 81 Mg Tablet.dr, 81 MG PO QHS, (Reported) Cholecalciferol (Vitamin D3) (Vitamin D3) 1,000 Unit Tablet, 1,000 UNITS PO QHS, (Reported) Docusate Sodium (Docusate Sodium) 100 Mg Capsule, 200 MG PO QHS, (Reported) Ezetimibe (Ezetimibe) 10 Mg Tablet, 10 MG PO QHS, (Reported) Flaxseed Oil (Flaxseed) 1,000 Mg Capsule, 1 CAP PO QAM, (Reported) Labetalol HCl (Labetalol HCl) 200 Mg Tablet, 200 MG PO BID, (Reported) Levothyroxine Sodium (Levothyroxine Sodium) 125 Mcg Tablet, 125 MCG PO QAM, (Reported) Losartan Potassium (Losartan Potassium) 100 Mg Tablet, 100 MG PO QHS, (Reported) ANGELIA BLAKE MD Apr 17, 2021 10:55
[2021-04-17 13:35] VITALS: BP 127/75
[2021-04-17 18:08] LABS: BASO % 0.5 % (0.0-1.0); EOS # 0.1 10^3/uL (0.0-0.5); EOS % 1.4 % (0.0-3.0); HEMATOCRIT 41.5 % (36.0-47.0); HEMOGLOBIN 13.4 g/dl (12.0-15.5); LYMPH # 2.3 10^3/uL (1.5-5.0); LYMPH % 26.9 % (24.0-44.0); MEAN CORPUSCULAR HEMOGLOBIN 30.9 pg (27.0-33.0); MEAN CORPUSCULAR HGB CONC 32.3 g/dl (32.0-36.5); MEAN CORPUSCULAR VOLUME 95.8 fl (80.0-96.0); MONO # 0.8 10^3/uL (0.0-0.8); MONO % 9.9 % (2.0-8.0); NEUTROPHILS # 4.9 10^3/uL (1.5-8.5); PLATELET COUNT, AUTOMATED 186 10^3/uL (150-450); RED BLOOD COUNT 4.33 10^6/uL (4.00-5.40); WHITE BLOOD COUNT 8.4 10^3/uL (4.0-10.0)
[2021-04-17] MEDS: DOCUSATE SODIUM 100MG CAPSULE PO SCH (20:32)
[2021-04-17] MEDS: ASPIRIN 81MG ENTERIC TABLET PO SCH (20:32)
[2021-04-17] MEDS: AMITRIPTYLINE 10MG TABLET PO SCH (20:32)
[2021-04-17] MEDS: VITAMIN D 1,000 INTERNATIONAL UNITS TABLET PO SCH (20:32)
[2021-04-17] MEDS: EZETIMIBE 10MG TABLET (ZETIA) PO SCH (20:32)
[2021-04-17 22:00] VITALS: BP 113/79
[2021-04-18] MEDS: LEVOTHYROXINE 125MCG TABLET (0.125MG) PO SCH (04:50)
[2021-04-18] MEDS: PERCOCET 5MG/325MG TAB PO PRN ×3 (04:51→22:08)
[2021-04-18 06:03] VITALS: BP 117/84
[2021-04-18 08:27] LABS: BASO % 0.4 % (0.0-1.0); EOS # 0.1 10^3/uL (0.0-0.5); HEMATOCRIT 40.9 % (36.0-47.0); HEMOGLOBIN 13.4 g/dl (12.0-15.5); LYMPH # 1.6 10^3/uL (1.5-5.0); LYMPH % 20.2 % (24.0-44.0); MEAN CORPUSCULAR HGB CONC 32.8 g/dl (32.0-36.5); MEAN CORPUSCULAR VOLUME 94.7 fl (80.0-96.0); MONO % 12.5 % (2.0-8.0); NEUTROPHILS # 5.1 10^3/uL (1.5-8.5); PLATELET COUNT, AUTOMATED 175 10^3/uL (150-450); RED BLOOD COUNT 4.32 10^6/uL (4.00-5.40)
[2021-04-18 08:58] LABS: ALBUMIN 3.1 GM/DL (3.2-5.2); ALT/SGPT 14 U/L (12-78); BILIRUBIN,TOTAL 0.7 MG/DL (0.2-1.0); BLOOD UREA NITROGEN 13 MG/DL (7-18); CALCIUM LEVEL 10.5 MG/DL (8.8-10.2); CARBON DIOXIDE LEVEL 29 MEQ/L (21-32); CHLORIDE LEVEL 104 MEQ/L (98-107); CREATININE FOR GFR 0.69 MG/DL (0.55-1.30); GLOMERULAR FILTRATION RATE > 60.0 (>32); GLUCOSE, FASTING 109 MG/DL (70-100); MAGNESIUM LEVEL 1.9 MG/DL (1.8-2.4); POTASSIUM SERUM 4.3 MEQ/L (3.5-5.1); SODIUM LEVEL 137 MEQ/L (136-145)
[2021-04-18] MEDS ORDERED: FLUBLOK(EGG FREE)(QUAD)INFLUENZA VACC 0.5ML SYRINGE 18YRS & OLDER IM ONE (09:00)
[2021-04-18] MEDS: MORPHINE 4 MG/ML 1ML VIAL/SYRINGE (J2270) IV ONE ×2 (09:30→10:05)
[2021-04-18] MEDS: allopurinoL 100 MG TAB PO SCH ×2 (10:03→21:58)
[2021-04-18] MEDS: SENNA 8.6 MG TAB (SENOKOT) PO SCH ×2 (10:03→21:57)
[2021-04-18] MEDS: CALCIUM CARBONATE 500 MG CHEW U/D PO SCH ×3 (10:04→21:59)
[2021-04-18] MEDS: ENOXAPARIN 40MG/0.4ML SYRINGE (J1650 PER 10MG) SC SCH (10:05)
[2021-04-18] MEDS: LABETALOL 200 MG TAB PO SCH ×2 (10:05→21:00)
[2021-04-18 10:24] LABS: PTH INTACT 160.6 PG/ML (18.5-88.0)
[2021-04-18 14:38] VITALS: BP_SYST 119; BP_SYST 159; BP_DIAS 81; BP_DIAS 85
--- NOTE | 2021-04-18 15:40 | IPNPDOC ---
Date Seen The patient was seen on 04/18/21. Progress Note SUBJECTIVE: Patient was seen and examined at bedside. No acute events overnight. Denies chest palpitations diarrhea fever chills. OBJECTIVE PHYSICAL EXAMINATION: VITAL SIGNS: please see below General: NAD, comfortable HEENT: PERRLA, EOMI, sclerae clear Neck: supple, normal ROM, no JVD Respiratory: lungs CTAB, no wheeze, no rales, no crackles CVS: RRR, normal S1, S2, no murmurs Abdo: soft, no masses, no hepatosplenomegaly, BS+, no rebound tenderness Neuro: Range of motion and left lower extremity mid back pain. Otherwise neurologically intact. Psych: calm, cooperative, AAO x 3 LABORATORY DATA, IMAGING STUDIES, MICROBIOLOGY: Please see below. Echocardiogram: . DVT prophylaxis ordered?: lovenox Ms. Murcia is an 86 yr old w Gout, HTN, DLP, Hypothyroidism, Osteoporosis (L1 & T8 fx), Vitamin D deficiency & primary ? hyperparathyroidism who is admitted for left pubic rami and iliac fractures. PLAN: # Left inferior and superior pubic rami fractures / Left iliac fracture - conservative mgmt per ortho Jared-Pack - PT/OT likely rehab - toe touch LLE. WBAT RLE. - pain controled. 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 # Suspected primary hyperparathyroidism -PTH , Ca2+elevated in October - F/u PTH - r/o familial hypolciuric hypercalcemia # Essential HTN -labetalol - hold losartan - hydralazine prn # Gout - allopurinol # Hypothyroidism - levothyroxine DLP - Zetia DVT px w ginnax Disposition: home after more than 2 midnights stay VS, I&O, 24H, Fishbone Vital Signs/I&O Vital Signs Date Time Temp Pulse Resp B/P (MAP) Pulse Ox O2 Delivery O2 Flow Rate FiO2 04/18/21 14:42 18 04/18/21 14:38 97.8 86 119/81 (94) 92 Room Air 04/17/21 10:45 2.0 I&O- Last 24 Hours up to 6 AM 04/18/21 06:00 Intake Total 240 ml Output Total 1100 ml Balance -860 ml Laboratory Data 24H LABS Laboratory Tests 2 04/17/21 17:54: Immature Granulocyte % (Auto) 2.3, Neutrophils (%) (Auto) 59.0, Lymphocytes (%) (Auto) 26.9, Monocytes (%) (Auto) 9.9H, Eosinophils (%) (Auto) 1.4, Basophils (%) (Auto) 0.5, Neutrophils # (Auto) 4.9, Lymphocytes # (Auto) 2.3, Monocytes # (Auto) 0.8, Eosinophils # (Auto) 0.1, Basophils # (Auto) 0.0, Nucleated Red Blood Cells % (auto) 0.0 04/18/21 08:12: Immature Granulocyte % (Auto) 1.9, Neutrophils (%) (Auto) 64.0, Lymphocytes (%) (Auto) 20.2L, Monocytes (%) (Auto) 12.5H, Eosinophils (%) (Auto) 1.0, Basophils (%) (Auto) 0.4, Neutrophils # (Auto) 5.1, Lymphocytes # (Auto) 1.6, Monocytes # (Auto) 1.0H, Eosinophils # (Auto) 0.1, Basophils # (Auto) 0.0, Nucleated Red Blood Cells % (auto) 0.0, Anion Gap 4L, Glomerular Filtration Rate > 60.0, Calcium Level 10.5H, Magnesium Level 1.9, Total Bilirubin 0.7, Aspartate Amino Transf (AST/SGOT) 14, Alanine Aminotransferase (ALT/SGPT) 14, Alkaline Phos phatase 60, Total Protein 6.0L, Albumin 3.1L, Albumin/Globulin Ratio 1.1L CBC/BMP Laboratory Tests 04/17/21 17:54 04/18/21 08:12 MARCI RODRIGUEZ MD Apr 18, 2021 15:40
[2021-04-18] MEDS: DOCUSATE SODIUM 100MG CAPSULE PO SCH (21:57)
[2021-04-18] MEDS: EZETIMIBE 10MG TABLET (ZETIA) PO SCH (21:58)
[2021-04-18] MEDS: VITAMIN D 1,000 INTERNATIONAL UNITS TABLET PO SCH (21:58)
[2021-04-18] MEDS: AMITRIPTYLINE 10MG TABLET PO SCH (21:59)
[2021-04-18] MEDS: ASPIRIN 81MG ENTERIC TABLET PO SCH (21:59)
[2021-04-18 22:00] VITALS: BP 102/66
[2021-04-19] MEDS: LEVOTHYROXINE 125MCG TABLET (0.125MG) PO SCH (05:29)
[2021-04-19] MEDS: PERCOCET 5MG/325MG TAB PO PRN ×2 (05:36→21:05)
[2021-04-19 06:26] VITALS: BP 101/66
[2021-04-19 06:26] LABS: BASO % 0.3 % (0.0-1.0); EOS # 0.1 10^3/uL (0.0-0.5); EOS % 0.9 % (0.0-3.0); HEMATOCRIT 38.1 % (36.0-47.0); HEMOGLOBIN 12.5 g/dl (12.0-15.5); LYMPH % 21.6 % (24.0-44.0); MEAN CORPUSCULAR HEMOGLOBIN 31.1 pg (27.0-33.0); MEAN CORPUSCULAR HGB CONC 32.8 g/dl (32.0-36.5); MEAN CORPUSCULAR VOLUME 94.8 fl (80.0-96.0); MONO # 1.5 10^3/uL (0.0-0.8); MONO % 16.3 % (2.0-8.0); NEUTROPHILS # 5.3 10^3/uL (1.5-8.5); PLATELET COUNT, AUTOMATED 168 10^3/uL (150-450); RED BLOOD COUNT 4.02 10^6/uL (4.00-5.40)
[2021-04-19 06:54] LABS: BLOOD UREA NITROGEN 13 MG/DL (7-18); CALCIUM LEVEL 10.7 MG/DL (8.8-10.2); CARBON DIOXIDE LEVEL 29 MEQ/L (21-32); CHLORIDE LEVEL 102 MEQ/L (98-107); CREATININE FOR GFR 0.75 MG/DL (0.55-1.30); GLOMERULAR FILTRATION RATE > 60.0 (>32); GLUCOSE, FASTING 137 MG/DL (70-100); MAGNESIUM LEVEL 1.8 MG/DL (1.8-2.4); POTASSIUM SERUM 4.1 MEQ/L (3.5-5.1); SODIUM LEVEL 136 MEQ/L (136-145)
[2021-04-19] MEDS: LABETALOL 200 MG TAB PO SCH (09:00)
[2021-04-19] MEDS: allopurinoL 100 MG TAB PO SCH ×2 (09:29→21:01)
[2021-04-19] MEDS: ENOXAPARIN 40MG/0.4ML SYRINGE (J1650 PER 10MG) SC SCH (09:29)
[2021-04-19] MEDS: SENNA 8.6 MG TAB (SENOKOT) PO SCH ×2 (09:29→21:02)
[2021-04-19] MEDS: CALCIUM CARBONATE 500 MG CHEW U/D PO SCH ×3 (09:29→21:01)
[2021-04-19 11:04] LABS: ALBUMIN 3.82 GM/DL (3.29-5.55); ALBUMIN % 62.6 % (55.8-66.1); ALPHA-1-GLOBULIN % 4.8 % (2.9-4.9); ALPHA-1-GLOBULINS 0.29 GM/DL (0.17-0.41); ALPHA-2-GLOBULINS 0.89 GM/DL (0.42-0.99); ALPHA-2-GLOBULINS % 14.6 % (7.1-11.8); BETA-1-GLOBULINS 0.31 GM/DL (0.28-0.60); BETA-1-GLOBULINS % 5.1 % (4.7-7.2); BETA-2-GLOBULINS 0.23 GM/DL (0.19-0.55); BETA-2-GLOBULINS % 3.7 % (3.2-6.5); GAMMA GLOBULIN % 9.2 % (11.1-18.8); GAMMA GLOBULINS 0.56 GM/DL (0.65-1.58)
[2021-04-19 14:00] VITALS: BP 132/76
--- NOTE | 2021-04-19 17:00 | IPNPDOC ---
Text Note Date of Service The patient was seen on 04/19/21. NOTE Subjective: No any acute events overnight Objective: GENERAL APPEARANCE: NAD HEENT: no scleral icterus, no JVD, EOMI CARDIOVASCULAR: S1S2 LUNGS: Diminished lung sounds bilaterally ABDOMEN: soft & not tender w palpation MUSCULOSKELETAL: no cyanosis, no swelling INTEGUMENT: no generalized pallor NEUROLOGICAL: cranial nerve function from 2-12 intact, follows commands, speech not dysarthric Assessment and plan Patient is an 86 yr old w Gout, HTN, DLP, Hypothyroidism, Osteoporosis (L1 & T8 fx), Vitamin D deficiency & primary ? hyperparathyroidism who is admitted for left pubic rami and iliac fractures Left inferior and superior pubic rami fractures / Left iliac fracture - conservative mgmt per ortho Dr. Coleman-Pack - PT/OT likely rehab Osteoporosis Alendronate, vitamin D, calcium supplementation Primary hyperparathyroidism PTH elevated, patient has diagnosed osteoporosis Patient will need resection of with a parathyroid glands Follow-up with software test and validation engineer in the outpatient settings for work-up and treatment Hypertension Blood pressure under control I decreased the dose of labetalol to 100 mg twice daily. Labetalol was prescribed before admission. It is unclear why labetalol was prescribed as a treatment for hypertension Will discuss with PCP Gout allopurinol Hypothyroidism levothyroxine DLP Zetia DVT px w lovenox VS,Fishbone, I+O VS, Fishbone, I+O Laboratory Tests 04/19/21 05:59 Vital Signs Date Time Temp Pulse Resp B/P (MAP) Pulse Ox O2 Delivery O2 Flow Rate FiO2 04/19/21 09:00 99 108/61 04/19/21 06:26 98.1 18 93 Room Air 04/17/21 10:45 2.0 I&O- Last 24 Hours up to 6 AM 04/19/21 06:00 Intake Total 810 ml Balance 810 ml FAVIOLA PEREZ DO Apr 19, 2021 17:00
[2021-04-19] MEDS: EZETIMIBE 10MG TABLET (ZETIA) PO SCH (21:01)
[2021-04-19] MEDS: VITAMIN D 1,000 INTERNATIONAL UNITS TABLET PO SCH (21:01)
[2021-04-19] MEDS: DOCUSATE SODIUM 100MG CAPSULE PO SCH (21:01)
[2021-04-19] MEDS: LABETALOL 100MG TAB PO SCH (21:03)
[2021-04-19] MEDS: AMITRIPTYLINE 10MG TABLET PO SCH (21:04)
[2021-04-19] MEDS: ASPIRIN 81MG ENTERIC TABLET PO SCH (21:04)
[2021-04-19 21:30] VITALS: BP 145/96
[2021-04-20] MEDS: LEVOTHYROXINE 125MCG TABLET (0.125MG) PO SCH (06:29)
[2021-04-20 06:49] VITALS: BP 128/81
[2021-04-20] MEDS ORDERED: ALENDRONATE 35MG TABLET PO SCH (07:00)
[2021-04-20] MEDS: LABETALOL 100MG TAB PO SCH ×2 (09:11→21:33)
[2021-04-20] MEDS: allopurinoL 100 MG TAB PO SCH ×2 (09:11→21:32)
[2021-04-20] MEDS: PERCOCET 5MG/325MG TAB PO PRN ×2 (09:12→21:32)
[2021-04-20] MEDS: SENNA 8.6 MG TAB (SENOKOT) PO SCH ×2 (09:12→21:33)
[2021-04-20] MEDS: CALCIUM CARBONATE 500 MG CHEW U/D PO SCH (09:12)
[2021-04-20] MEDS: ENOXAPARIN 40MG/0.4ML SYRINGE (J1650 PER 10MG) SC SCH (09:13)
--- NOTE | 2021-04-20 13:08 | IPNPDOC ---
Text Note Date of Service The patient was seen on 04/20/21. NOTE Subjective: No any acute events overnight. Patient denies fever, chills, nausea, diarrhea or dysuria Objective: GENERAL APPEARANCE: NAD HEENT: no scleral icterus, no JVD, EOMI CARDIOVASCULAR: S1S2 LUNGS: Diminished lung sounds bilaterally ABDOMEN: soft & not tender w palpation MUSCULOSKELETAL: no cyanosis, no swelling INTEGUMENT: no generalized pallor NEUROLOGICAL: cranial nerve function from 2-12 intact, follows commands, speech not dysarthric Assessment and plan Patient is an 86 yr old w Gout, HTN, DLP, Hypothyroidism, Osteoporosis (L1 & T8 fx), Vitamin D deficiency & primary ? hyperparathyroidism who is admitted for left pubic rami and iliac fractures Left inferior and superior pubic rami fractures / Left iliac fracture - conservative mgmt per ortho Dr. Lyon - PT/OT likely rehab Osteoporosis Alendronate, vitamin D, calcium supplementation Primary hyperparathyroidism PTH elevated, patient has diagnosed osteoporosis Patient will need resection of with a parathyroid glands Follow-up with title vehicle service attendant in the outpatient settings for work-up and treatment Hypertension Blood pressure under control I decreased the dose of labetalol to 100 mg twice daily. Labetalol was prescribed before admission. It is unclear why labetalol was prescribed as a treatment for hypertension Will discuss with PCP Gout allopurinol Hypothyroidism levothyroxine DLP Zetia DVT px w lovenox VS,Fishbone, I+O VS, Fishbone, I+O Vital Signs Date Time Temp Pulse Resp B/P (MAP) Pulse Ox O2 Delivery O2 Flow Rate FiO2 04/20/21 09:42 16 Room Air 04/20/21 09:11 92 128/81 04/20/21 06:49 97.2 94 04/17/21 10:45 2.0 I&O- Last 24 Hours up to 6 AM 04/20/21 06:00 Intake Total 635 ml Output Total 0 ml Balance 635 ml FAVIOLA PEREZ DO Apr 20, 2021 13:08
[2021-04-20 14:26] VITALS: BP 130/80
[2021-04-20] MEDS ORDERED: VITAMIN D 1,000 INTERNATIONAL UNITS TABLET PO SCH (21:00)
[2021-04-20] MEDS: EZETIMIBE 10MG TABLET (ZETIA) PO SCH (21:32)
[2021-04-20] MEDS: DOCUSATE SODIUM 100MG CAPSULE PO SCH (21:32)
[2021-04-20] MEDS: ASPIRIN 81MG ENTERIC TABLET PO SCH (21:32)
[2021-04-20] MEDS: AMITRIPTYLINE 10MG TABLET PO SCH (21:32)
[2021-04-20 22:00] VITALS: BP 129/79
[2021-04-21 06:00] VITALS: BP 128/79
[2021-04-21] MEDS: PERCOCET 5MG/325MG TAB PO PRN (06:13)
[2021-04-21] MEDS: LEVOTHYROXINE 125MCG TABLET (0.125MG) PO SCH (06:13)
[2021-04-21 09:25] VITALS: BP 131/80
[2021-04-21] MEDS: LABETALOL 100MG TAB PO SCH (09:25)
[2021-04-21] MEDS: ENOXAPARIN 40MG/0.4ML SYRINGE (J1650 PER 10MG) SC SCH (09:26)
[2021-04-21] MEDS: allopurinoL 100 MG TAB PO SCH (09:26)
[2021-04-21] MEDS: SENNA 8.6 MG TAB (SENOKOT) PO SCH (09:26)
[2021-04-21] MEDS ORDERED: VITAD1000T PO (10:17)
[2021-04-21] MEDS ORDERED: LABE100T4 PO (10:17)
[2021-04-21] MEDS ORDERED: SENN18TA PO (10:17)
[2021-04-21] MEDS ORDERED: ALEN35TA56 PO (10:17)
--- NOTE | 2021-04-21 10:40 | DS.PDOC ---
Discharge Summary General Date of Admission Apr 17, 2021 at 03:54 Date of Discharge 04/21/21 Discharge Summary PROCEDURES PERFORMED DURING STAY: [None]. ADMITTING DIAGNOSES: Left inferior and superior pubic rami fractures / Left iliac fracture Osteoporosis Primary hyperparathyroidism Hypertension Gout Hypothyroidism DLP DISCHARGE DIAGNOSES: Left inferior and superior pubic rami fractures / Left iliac fracture Osteoporosis Primary hyperparathyroidism Hypertension Gout Hypothyroidism DLP COMPLICATIONS/CHIEF COMPLAINT: Fracture Of Left Iliac Wing. HISTORY OF PRESENT ILLNESS:After getting up from a chair to walk, an 86 yr old F, tripped and fell on to her right hip. She denied having prodromal dizziness, chest pain, shortness of breath, vomiting of diarrhea. Seen in emergency and x-rays show superior and inferior pubic rami fracture and iliac wi ng fracture. Iliac wing fracture is nondisplaced. Patient unable to weight- bear left side. HOSPITAL COURSE: During the hospital stay the following issue addressed Orthopedic team consulted patient be recommended Toe-touch weightbearing left lower extremity Weightbearing as tolerated right lower extremity . Patient is able to sit up in bed or in chair Allow passive assist range of motion of the hip. No indication for surgery. Also patient was found to have elevated calcium level of 10.2 and PTH 160 there is suspicion for primary Primary hyperparathyroidism Also patient was diagnosed with osteoporosis. Patient received treatment with alendronate, vitamin D, calcium supplementation. Patient will need follow-up with skid wrapper for completion of work-up for Primary hyperparathyroidism. I decreased the dose of labetalol to 100 mg twice daily due to hypotension. Labetalol was prescribed before admission. It is unclear why labetalol was prescribed as a treatment for hypertension. It needs to be discussed with PCP DISCHARGE MEDICATIONS: Please see below. ALLERGIES: Please see below. PHYSICAL EXAMINATION ON DISCHARGE: VITAL SIGNS: Please see below. GENERAL APPEARANCE: NAD HEENT: no scleral icterus, no JVD, EOMI CARDIOVASCULAR: S1S2 LUNGS: Diminished lung sounds bilaterally ABDOMEN: soft & not tender w palpation MUSCULOSKELETAL: no cyanosis, no swelling INTEGUMENT: no generalized pallor NEUROLOGICAL: cranial nerve function from 2-12 intact, follows commands, speech not dysarthric LABORATORY DATA: Please see below. IMAGING: CT abd/pelvis IMPRESSION: 1. Food material and gas in the region of the mid esophagus which may reflect esophageal distention. Diverticulum is not excluded. 2. Old granulomatous disease of the chest, liver and spleen. 3. Fractures of the left inferior and superior pubic rami and nondisplaced fracture through the left iliac wing extending laterally from the sciatic notch. There is question of slight hemorrhagic infiltration involving the left obturator internus and externus musculature. 4. Bibasilar coarse pulmonary interstitium with minimal fibro-atelectatic change and question of minimal infiltrates. There is question of some endobronchial plugging in the lower lobes. 5. Moderately prominent diffuse compression of L1 with retropulsion of the posterosuperior aspect and mild diffuse and wedge compression of T8 and possibly T7 of uncertain age. 6. Probable nonobstructing right renal calculus. 7. Colonic diverticulosis without diverticulitis. PROGNOSIS: Fair ACTIVITY: [As tolerated]. DIET: Regular DISCHARGE PLAN: Subacute rehab ITEMS TO FOLLOWUP ON ON OUTPATIENT: With PCP DISCHARGE CONDITION: [Stable]. TIME SPENT ON DISCHARGE: 40minutes. Vital Signs/I&Os Vital Signs Date Time Temp Pulse Resp B/P (MAP) Pulse Ox O2 Delivery O2 Flow Rate FiO2 04/21/21 09:25 97 131/80 04/21/21 06:43 16 04/21/21 06:00 97.7 94 Room Air 04/17/21 10:45 2.0 I&O- Last 24 Hours up to 6 AM 04/21/21 06:00 Intake Total 1240 ml Output Total 450 ml Balance 790 ml Discharge Medications Scheduled Alendronate Sodium (Alendronate Sodium) 35 Mg Tablet, 35 MG PO We@07 Allopurinol (Allopurinol) 100 Mg Tablet, 100 MG PO BID, (Reported) Amitriptyline HCl (Amitriptyline HCl) 10 Mg Tablet, 10 MG PO QHS, (Reported) Aspirin (Aspirin EC) 81 Mg Tablet.dr, 81 MG PO QHS, (Reported) Cholecalciferol (Vitamin D3) (Vitamin D3) 1,000 Unit Tablet, 1,000 UNITS PO QHS, (Reported) Cholecalciferol (Vitamin D3) (Vitamin D3) 25 Mcg Tablet, 400 UNITS PO QHS Docusate Sodium (Docusate Sodium) 100 Mg Capsule, 200 MG PO QHS, (Reported) Ezetimibe (Ezetimibe) 10 Mg Tablet, 10 MG PO QHS, (Reported) Flaxseed Oil (Flaxseed) 1,000 Mg Capsule, 1 CAP PO QAM, (Reported) Labetalol HCl (Labetalol HCl) 100 Mg Tablet, 100 MG PO BID Levothyroxine Sodium (Levothyroxine Sodium) 125 Mcg Tablet, 125 MCG PO QAM, (Reported) Losartan Potassium (Losartan Potassium) 100 Mg Tablet, 100 MG PO QHS, (Reported) Scheduled PRN Senna (Senna Lax) 8.6 Mg Tablet, 2 TAB PO BID PRN for constipation Allergies Coded Allergies: Penicillins (Verified Allergy, Intermediate, RASH, 12/02/18) hydrochlorothiazide (Verified Adverse Reaction, Intermediate, GOUT, 12/02/18) indapamide (Verified Adverse Reaction, Intermediate, ELEVATED CALCIUM, 12/02/18) simvastatin (Verified Adverse Reaction, Intermediate, MYALGIA, 12/02/18) FAVIOLA PEREZ DO Apr 21, 2021 10:40
== END 2021-04-21 11:30 | DRG 536 ==
LOC: M ED 00:14 → M ED INP 03:54 → ENRESERV 13:05 → M MS5PR 13:35
PROVIDERS: ADMIT Internal Medicine; ATTEND Internal Medicine
DX: S32.302A Unspecified fracture of left ilium, initial encounter for closed fracture (principal); S32.512A Fracture of superior rim of left pubis, initial encounter for closed fracture; M10.9 Gout, unspecified; I10 Essential (primary) hypertension; E78.5 Hyperlipidemia, unspecified; E03.9 Hypothyroidism, unspecified; R73.01 Impaired fasting glucose; M81.0 Age-related osteoporosis without current pathological fracture; E55.9 Vitamin D deficiency, unspecified; E21.0 Primary hyperparathyroidism; Z87.891 Personal history of nicotine dependence; Z20.822 Contact with and (suspected) exposure to COVID-19; W01.0XXA Fall on same level from slipping, tripping and stumbling without subsequent striking against object, initial encounter; Y92.009 Unspecified place in unspecified non-institutional (private) residence as the place of occurrence of the external cause; R26.81 Unsteadiness on feet; Z79.82 Long term (current) use of aspirin; Z79.899 Other long term (current) drug therapy; Z88.0 Allergy status to penicillin; Z88.8 Allergy status to other drugs, medicaments and biological substances

== ENCOUNTER → 2021-04-27 | Outpatient (CLI) | payer MEDICARE ==
[~2021-04-27] MED LIST changes: +ALEN35TA56 PO; +AMIT10TA7 PO; +ASPI81TA26 PO; +D31000TA2 PO; +DOCU100C16 PO; +GNP1000C11 PO; +LABE100T4 PO; +LOSA100T50 PO; +SENN18TA PO; +VITAD1000T PO
--- NOTE | 2021-04-27 16:46 | REP ---
INDICATION: MULTIPULE PELVIC FX. COMPARISON: AP pelvis of 04/17/2021 TECHNIQUE: AP pelvis FINDINGS: Comminuted left superior and inferior pubic rami fractures status quo. Fractured left ilium status quo. Bilateral hip DJD status quo. Bilateral SI joint degenerative change status quo. No acute fractures from the prior exam are identified. IMPRESSION: No significant change from the prior exam. <Electronically signed by Bairon Clarke > 04/27/21 [id number]
== END ==
LOC: M SOG 13:05
PROVIDERS: ATTEND Orthopaedic Surgery
DX: S32.810A Multiple fractures of pelvis with stable disruption of pelvic ring, initial encounter for closed fracture (principal); X58.XXXA Exposure to other specified factors, initial encounter; Y92.9 Unspecified place or not applicable; Y93.9 Activity, unspecified; Y99.9 Unspecified external cause status

== ENCOUNTER → 2021-05-19 | Outpatient (CLI) | payer MEDICARE ==
--- NOTE | 2021-05-19 14:55 | REP ---
INDICATION: PELVIC FX. COMPARISON: None. TECHNIQUE: 04/27/2021 FINDINGS: There are multiple left yanely pelvic fractures status quo. No acute fractures have developed since the last exam. IMPRESSION: No change from 04/27/2020 <Electronically signed by Bairon Clarke > 05/19/21 [id number]
== END ==
LOC: M SOG 14:12
PROVIDERS: ATTEND Orthopaedic Surgery
DX: S32.810D Multiple fractures of pelvis with stable disruption of pelvic ring, subsequent encounter for fracture with routine healing (principal); X58.XXXD Exposure to other specified factors, subsequent encounter; Y92.9 Unspecified place or not applicable; Y93.9 Activity, unspecified; Y99.9 Unspecified external cause status

== ENCOUNTER 2021-10-04 16:59 | Inpatient (IN) | payer MEDICARE ==
[~2021-10-04] VITALS: Ht 157.5 cm; Wt 66.1 kg
[~2021-10-04 16:59] MED LIST changes: -D31000TA2 PO; +LOSA100T45 PO; -LOSA100T50 PO; +LOSA50TA28 PO; -LOSA50TA88 PO; +VITA100093 PO
[2021-10-04] MEDS ORDERED: B-12100010 PO (17:26)
[2021-10-04] MEDS ORDERED: LABE20TAB PO (17:26)
[2021-10-04 17:42] LABS: BASO % 0.5 % (0.0-1.0); EOS # 0.1 10^3/uL (0.0-0.5); EOS % 1.1 % (0.0-3.0); HEMATOCRIT 47.9 % (36.0-47.0); LYMPH # 2.5 10^3/uL (1.5-5.0); LYMPH % 38.8 % (24.0-44.0); MEAN CORPUSCULAR HEMOGLOBIN 30.2 pg (27.0-33.0); MEAN CORPUSCULAR HGB CONC 33.4 g/dl (32.0-36.5); MEAN CORPUSCULAR VOLUME 90.5 fl (80.0-96.0); MONO # 0.5 10^3/uL (0.0-0.8); MONO % 7.8 % (2.0-8.0); NEUTROPHILS # 3.3 10^3/uL (1.5-8.5); NEUTROPHILS % 50.9 % (36.0-66.0); PLATELET COUNT, AUTOMATED 203 10^3/uL (150-450); RED BLOOD COUNT 5.29 10^6/uL (4.00-5.40); WHITE BLOOD COUNT 6.4 10^3/uL (4.0-10.0)
[2021-10-04] MEDS ORDERED: LABETALOL 200 MG TAB PO ONE (17:50)
[2021-10-04] MEDS ORDERED: ASPIRIN 81 MG CHEW TABLET PO ONE (18:20)
[2021-10-04 18:22] LABS: ALT/SGPT 18 U/L (12-78); BILIRUBIN,DIRECT 0.2 MG/DL (0.0-0.2); BILIRUBIN,TOTAL 0.6 MG/DL (0.2-1.0); BLOOD UREA NITROGEN 12 MG/DL (7-18); CALCIUM LEVEL 12.1 MG/DL (8.8-10.2); CARBON DIOXIDE LEVEL 27 MEQ/L (21-32); CHLORIDE LEVEL 106 MEQ/L (98-107); CREATININE FOR GFR 0.68 MG/DL (0.55-1.30); FREE T4 1.32 NG/DL (0.76-1.46); GLOMERULAR FILTRATION RATE > 60.0 (>32); GLUCOSE, FASTING 99 MG/DL (70-100); LIPASE 130 U/L (73-393); NT-PRO BNP 124 PG/ML (<450); POTASSIUM SERUM 4.2 MEQ/L (3.5-5.1); SODIUM LEVEL 139 MEQ/L (136-145); TOTAL PROTEIN 7.1 GM/DL (6.4-8.2)
[2021-10-04] MEDS ORDERED: LABETALOL 100MG/20ML VIAL IV STA ×2 (19:01→20:18)
[2021-10-04] MEDS ORDERED: ISOVUE-370 76% 100ML VIAL As Ordered ONE (19:16)
[2021-10-04] MEDS ORDERED: LOSARTAN 50MG TABLET PO ONE (20:55)
[2021-10-04] MEDS ORDERED: DOCUSATE SODIUM 100MG CAPSULE PO SCH (21:00)
[2021-10-04] MEDS ORDERED: EZETIMIBE 10MG TABLET (ZETIA) PO SCH (21:00)
[2021-10-04] MEDS ORDERED: HumaLOG INSULIN (NovoLOG) PER UNIT SC SCH (21:00)
[2021-10-04] MEDS: allopurinoL 100 MG TAB PO SCH (21:00)
[2021-10-04] MEDS ORDERED: B-12100T2 PO (23:15)
[2021-10-04] MEDS ORDERED: SENN18TA PO (23:15)
[2021-10-04] MEDS ORDERED: LABE200T3 PO (23:15)
[2021-10-04] MEDS ORDERED: ESOM0.1C PO (23:16)
[2021-10-04] MEDS ORDERED: GLUCAGON INJ 1MG VIAL SC PRN (23:20)
[2021-10-04] MEDS ORDERED: HOME MED LIST COMPLETE! XX SCH (23:20)
[2021-10-04] MEDS ORDERED: MOM 30ML SUSPENSION UDC PO PRN (23:20)
[2021-10-04] MEDS ORDERED: ACETAMINOPHEN TAB 650MG DOSE (2X325MG) PO PRN (23:20)
[2021-10-04] MEDS ORDERED: DEXTROSE 50% 50 ML SYRINGE IV PRN (23:20)
[2021-10-04] MEDS ORDERED: GLUCOSE 4GM CHEW TABLET PO PRN (23:20)
[2021-10-04] MEDS ORDERED: hydrALAZINE 20MG/ML 1ML VIAL (J0360 PER 20MG) IV PRN (23:25)
[2021-10-05 01:25] VITALS: BP 144/82
[2021-10-05 04:00] VITALS: BP 120/71
[2021-10-05 05:50] LABS: HEMATOCRIT 43.4 % (36.0-47.0); HEMOGLOBIN 14.4 g/dl (12.0-15.5); MEAN CORPUSCULAR HEMOGLOBIN 30.3 pg (27.0-33.0); MEAN CORPUSCULAR HGB CONC 33.2 g/dl (32.0-36.5); MEAN CORPUSCULAR VOLUME 91.4 fl (80.0-96.0); PLATELET COUNT, AUTOMATED 185 10^3/uL (150-450); RED BLOOD COUNT 4.75 10^6/uL (4.00-5.40); WHITE BLOOD COUNT 6.8 10^3/uL (4.0-10.0)
[2021-10-05] MEDS ORDERED: LEVOTHYROXINE 125MCG TABLET (0.125MG) PO SCH (06:00)
[2021-10-05 06:16] LABS: ALBUMIN 3.3 GM/DL (3.2-5.2); ALT/SGPT 17 U/L (12-78); BILIRUBIN,TOTAL 0.5 MG/DL (0.2-1.0); BLOOD UREA NITROGEN 12 MG/DL (7-18); CALCIUM LEVEL 11.1 MG/DL (8.8-10.2); CARBON DIOXIDE LEVEL 29 MEQ/L (21-32); CHLORIDE LEVEL 108 MEQ/L (98-107); CREATININE FOR GFR 0.68 MG/DL (0.55-1.30); GLOMERULAR FILTRATION RATE > 60.0 (>32); GLUCOSE, FASTING 92 MG/DL (70-100); MAGNESIUM LEVEL 2.2 MG/DL (1.8-2.4); POTASSIUM SERUM 3.9 MEQ/L (3.5-5.1); SODIUM LEVEL 140 MEQ/L (136-145); TOTAL PROTEIN 6.3 GM/DL (6.4-8.2)
[2021-10-05] MEDS ORDERED: HumaLOG INSULIN (NovoLOG) PER UNIT SC SCH (07:30)
[2021-10-05 07:49] VITALS: BP 138/79
[2021-10-05 08:18] VITALS: BP 138/79
[2021-10-05] MEDS: allopurinoL 100 MG TAB PO SCH (08:19)
[2021-10-05] MEDS ORDERED: ENOXAPARIN 40MG/0.4ML SYRINGE (J1650 PER 10MG) SC SCH (09:00)
[2021-10-05] MEDS ORDERED: LABETALOL 200 MG TAB PO SCH (09:00)
[2021-10-05] MEDS ORDERED: LOSARTAN 50MG TABLET PO SCH (21:00)
[2021-10-05] MEDS ORDERED: ASPIRIN 81MG ENTERIC TABLET PO SCH (21:00)
== END 2021-10-05 11:45 | disposition home health service (06) | DRG 282 ==
LOC: M ED 16:59 → M ED INP 23:20 → ENRESERV 10-05 00:47 → M PCU 10-05 01:24
PROVIDERS: ADMIT Family Medicine; ATTEND Internal Medicine
DX: I16.1 Hypertensive emergency (principal); I21.A1 Myocardial infarction type 2; I10 Essential (primary) hypertension; E78.5 Hyperlipidemia, unspecified; E03.9 Hypothyroidism, unspecified; R73.03 Prediabetes; M10.9 Gout, unspecified; M81.0 Age-related osteoporosis without current pathological fracture; Z87.891 Personal history of nicotine dependence; E21.3 Hyperparathyroidism, unspecified; Z91.14 Patient's other noncompliance with medication regimen; Z66 Do not resuscitate; Z20.822 Contact with and (suspected) exposure to COVID-19; Z79.82 Long term (current) use of aspirin; Z79.899 Other long term (current) drug therapy; Z88.0 Allergy status to penicillin; Z88.8 Allergy status to other drugs, medicaments and biological substances; K21.9 Gastro-esophageal reflux disease without esophagitis

== ENCOUNTER → 2021-10-26 | Outpatient (CLI) | payer MEDICARE ==
[~2021-10-26] MED LIST changes: +B-12100010 PO; +ESOM0.1C PO; +LABE200T3 PO
== END ==
LOC: M PLAIMG 10:40
PROVIDERS: ATTEND Physician Assistant
DX: M25.512 Pain in left shoulder (principal); M79.632 Pain in left forearm; R07.89 Other chest pain; M54.9 Dorsalgia, unspecified; M19.012 Primary osteoarthritis, left shoulder; M19.032 Primary osteoarthritis, left wrist; M19.022 Primary osteoarthritis, left elbow

== ENCOUNTER → 2022-04-13 | Outpatient (CLI) | payer MEDICARE ==
[~2022-04-13] MED LIST changes: -LABE100T4 PO; +LABE100T6 PO; -LABE200T3 PO; +LABE200T5 PO
[2022-04-13 16:01] LABS: ALBUMIN 3.8 GM/DL (3.2-5.2); ALT/SGPT 17 U/L (12-78); BILIRUBIN,TOTAL 0.5 MG/DL (0.2-1.0); BLOOD UREA NITROGEN 17 MG/DL (7-18); CALCIUM LEVEL 11.7 MG/DL (8.8-10.2); CARBON DIOXIDE LEVEL 31 MEQ/L (21-32); CHLORIDE LEVEL 104 MEQ/L (98-107); CHOLESTEROL LEVEL 166 MG/DL (<200); CHOLESTEROL RISK RATIO 4.048 (<5); GLOMERULAR FILTRATION RATE > 60.0 (>32); GLUCOSE, FASTING 94 MG/DL (70-100); HDL CHOLESTEROL 41 MG/DL (>40); LDL CHOLESTEROL 89 MG/DL (<100); NON-HDL-C 125 MG/DL; POTASSIUM SERUM 4.2 MEQ/L (3.5-5.1); SODIUM LEVEL 137 MEQ/L (136-145); TOTAL PROTEIN 6.7 GM/DL (6.4-8.2); TRIGLYCERIDES LEVEL 182 MG/DL (<150)
[2022-04-13 16:44] LABS: PTH INTACT 78.6 PG/ML (18.5-88.0); TOTAL 25(OH) VITAMIN D 70.2 NG/ML (30.0-100.0)
[2022-04-14 14:16] LABS: VITAMIN B12 LEVEL 1150 PG/ML (247-911)
== END ==
LOC: M PLALAB 11:54
PROVIDERS: ATTEND Nurse Practitioner Adult Health
DX: E55.9 Vitamin D deficiency, unspecified (principal); E21.0 Primary hyperparathyroidism; I11.9 Hypertensive heart disease without heart failure; E53.8 Deficiency of other specified B group vitamins; E03.9 Hypothyroidism, unspecified; E78.2 Mixed hyperlipidemia

== ENCOUNTER → 2022-06-15 | Outpatient (CLI) | payer MEDICARE ==
[2022-06-15 12:45] LABS: BASO # 0.1 10^3/uL (0.0-0.2); BASO % 0.8 % (0.0-1.0); EOS # 0.2 10^3/uL (0.0-0.5); EOS % 2.4 % (0.0-3.0); HEMATOCRIT 43.9 % (36.0-47.0); HEMOGLOBIN 13.8 g/dl (12.0-15.5); LYMPH # 2.6 10^3/uL (1.5-5.0); LYMPH % 41.5 % (24.0-44.0); MEAN CORPUSCULAR HEMOGLOBIN 29.7 pg (27.0-33.0); MEAN CORPUSCULAR HGB CONC 31.4 g/dl (32.0-36.5); MEAN CORPUSCULAR VOLUME 94.6 fl (80.0-96.0); MONO # 0.7 10^3/uL (0.0-0.8); MONO % 11.1 % (2.0-8.0); NEUTROPHILS # 2.7 10^3/uL (1.5-8.5); NEUTROPHILS % 42.5 % (36.0-66.0); PLATELET COUNT, AUTOMATED 201 10^3/uL (150-450); RED BLOOD COUNT 4.64 10^6/uL (4.00-5.40); WHITE BLOOD COUNT 6.3 10^3/uL (4.0-10.0)
[2022-06-15 13:05] LABS: BLOOD UREA NITROGEN 19 MG/DL (9-23); CALCIUM LEVEL 11.6 MG/DL (8.3-10.6); CARBON DIOXIDE LEVEL 27 MMOL/L (20-31); CHLORIDE LEVEL 103 MMOL/L (98-107); CREATININE FOR GFR 0.79 MG/DL (0.55-1.30); GLOMERULAR FILTRATION RATE > 60.0 (>32); GLUCOSE, FASTING 79 MG/DL (74-106); POTASSIUM SERUM 4.3 MMOL/L (3.5-5.1); SODIUM LEVEL 141 MMOL/L (136-145)
== END ==
LOC: M WUC 09:28
PROVIDERS: ATTEND Internal Medicine Cardiovascular Disease
DX: I20.9 Angina pectoris, unspecified (principal)

== ENCOUNTER → 2022-10-04 | Outpatient (CLI) | payer MEDICARE | LOC: M PLAIMG 11:55 | PROVIDERS: ATTEND Physician Assistant | DX: R07.81 Pleurodynia (principal) ==

== ENCOUNTER → 2022-12-25 | Outpatient (CLI) | payer MEDICARE ==
[~2022-12-25] MED LIST changes: -LOSA100T45 PO; +LOSA100T46 PO; +SENN-111 PO; -SENN18TA PO
[2022-12-25 11:07] LABS: ALBUMIN 3.6 G/DL (3.2-5.2); ALKALINE PHOSPHATASE 86 U/L (46-116); ALT/SGPT 13 U/L (7.0-40); AST/SGOT 13 U/L (<34); BILIRUBIN,TOTAL 0.6 MG/DL (0.3-1.2); BLOOD UREA NITROGEN 15 MG/DL (9-23); CALCIUM LEVEL 10.6 MG/DL (8.3-10.6); CARBON DIOXIDE LEVEL 29 MMOL/L (20-31); CHLORIDE LEVEL 106 MMOL/L (98-107); CHOLESTEROL LEVEL 101 MG/DL (<200); CHOLESTEROL RISK RATIO 2.31 (<5); CREATININE FOR GFR 0.75 MG/DL (0.55-1.30); GLOMERULAR FILTRATION RATE > 60.0 (>32); GLUCOSE, FASTING 73 MG/DL (74-106); HDL CHOLESTEROL 43.6 MG/DL (>40); LDL CHOLESTEROL 43.6 MG/DL (<100); NON-HDL-C 57.4 MG/DL; POTASSIUM SERUM 4.1 MMOL/L (3.5-5.1); SODIUM LEVEL 138 MMOL/L (136-145); TOTAL PROTEIN 5.9 G/DL (5.7-8.2); TRIGLYCERIDES LEVEL 69 MG/DL (<150)
[2022-12-25 11:10] LABS: THYROID STIMULATING HORMONE 0.616 uIU/ML (0.55-4.78); TOTAL 25(OH) VITAMIN D 40.2 NG/ML (20.0-100.0)
== END ==
LOC: M WUC 08:19
PROVIDERS: ATTEND Nurse Practitioner Adult Health
DX: I11.9 Hypertensive heart disease without heart failure (principal); E78.2 Mixed hyperlipidemia; E03.9 Hypothyroidism, unspecified; E55.9 Vitamin D deficiency, unspecified; L21.0 Seborrhea capitis

== ENCOUNTER 2023-01-08 22:09 | Emergency (ER) | payer MEDICARE ==
[~2023-01-08] VITALS: Ht 157.5 cm; Wt 58.8 kg
[2023-01-08 22:10] VITALS: TEMP 98.6; O2SAT 96
[2023-01-09 02:00] VITALS: BP 124/75
[2023-01-09] MEDS ORDERED: PRED20TA PO (03:53)
[2023-01-09] MEDS ORDERED: predniSONE 20 MG TAB PO ONE (03:55)
== END 2023-01-09 04:25 | disposition home or self-care (01) ==
LOC: M ED 22:09
DX: L25.9 Unspecified contact dermatitis, unspecified cause (principal); Z79.82 Long term (current) use of aspirin; Z79.899 Other long term (current) drug therapy; Z88.0 Allergy status to penicillin; Z88.8 Allergy status to other drugs, medicaments and biological substances
CPT/HCPCS: 73610; 99283; J7512

== ENCOUNTER → 2023-07-12 | Outpatient (CLI) | payer MEDICARE ==
[~2023-07-12] MED LIST changes: +PRED20TA PO
== END ==
LOC: M PLAIMG 11:01
PROVIDERS: ATTEND Physician Assistant Medical
DX: R91.8 Other nonspecific abnormal finding of lung field (principal); J06.9 Acute upper respiratory infection, unspecified

== ENCOUNTER → 2023-10-03 | Outpatient (CLI) | payer MEDICARE ==
[2023-10-03 12:49] LABS: HEMATOCRIT 46.2 % (36.0-47.0); HEMOGLOBIN 15.1 g/dl (12.0-15.5); MEAN CORPUSCULAR HEMOGLOBIN 29.2 pg (27.0-33.0); MEAN CORPUSCULAR HGB CONC 32.7 g/dl (32.0-36.5); MEAN CORPUSCULAR VOLUME 89.4 fl (80.0-96.0); PLATELET COUNT, AUTOMATED 210 10^3/uL (150-450); RED BLOOD COUNT 5.17 10^6/uL (4.00-5.40); WHITE BLOOD COUNT 6.4 10^3/uL (4.0-10.0)
[2023-10-03 13:20] LABS: ALKALINE PHOSPHATASE 72 U/L (46-116); ALT/SGPT 15 U/L (7.0-40); AST/SGOT 19 U/L (<34); BILIRUBIN,TOTAL 0.6 MG/DL (0.3-1.2); BLOOD UREA NITROGEN 25 MG/DL (9-23); CALCIUM LEVEL 11.1 MG/DL (8.3-10.6); CARBON DIOXIDE LEVEL 32 MMOL/L (20-31); CHLORIDE LEVEL 103 MMOL/L (98-107); CHOLESTEROL LEVEL 121 MG/DL (<200); CREATININE FOR GFR 0.71 MG/DL (0.55-1.30); GLOMERULAR FILTRATION RATE > 60.0 (>32); GLUCOSE, FASTING 93 MG/DL (74-106); HDL CHOLESTEROL 44.8 MG/DL (>40); LDL CHOLESTEROL 55.2 MG/DL (<100); NON-HDL-C 76.2 MG/DL; POTASSIUM SERUM 4.1 MMOL/L (3.5-5.1); SODIUM LEVEL 140 MMOL/L (136-145); TOTAL PROTEIN 6.3 G/DL (5.7-8.2); TRIGLYCERIDES LEVEL 105 MG/DL (<150)
[2023-10-03 13:23] LABS: FERRITIN 137.5 NG/ML (7.3-270.7); THYROID STIMULATING HORMONE 1.835 uIU/ML (0.55-4.78); TOTAL 25(OH) VITAMIN D 94.7 NG/ML (20.0-100.0)
[2023-10-03 13:24] LABS: VITAMIN B12 LEVEL 663 PG/ML (211-911)
[2023-10-03 13:25] LABS: FREE T4 1.19 NG/DL (0.89-1.76)
== END ==
LOC: M WUC 09:33
PROVIDERS: ATTEND Nurse Practitioner Adult Health
DX: E53.8 Deficiency of other specified B group vitamins (principal); I11.9 Hypertensive heart disease without heart failure; E78.2 Mixed hyperlipidemia; D50.9 Iron deficiency anemia, unspecified

== ENCOUNTER → 2024-03-20 | Outpatient (CLI) | payer MEDICARE ==
[~2024-03-20] MED LIST changes: -ESOM0.1C PO; +ESOM20CA2 PO
[2024-03-20 10:52] LABS: HEMATOCRIT 43.8 % (36.0-47.0); HEMOGLOBIN 14.3 g/dl (12.0-15.5); MEAN CORPUSCULAR HEMOGLOBIN 29.6 pg (27.0-33.0); MEAN CORPUSCULAR HGB CONC 32.6 g/dl (32.0-36.5); MEAN CORPUSCULAR VOLUME 90.7 fl (80.0-96.0); PLATELET COUNT, AUTOMATED 201 10^3/uL (150-450); RED BLOOD COUNT 4.83 10^6/uL (4.00-5.40); WHITE BLOOD COUNT 5.8 10^3/uL (4.0-10.0)
[2024-03-20 11:26] LABS: URIC ACID 4.4 MG/DL (3.1-7.8)
[2024-03-20 11:27] LABS: FREE T4 1.44 NG/DL (0.89-1.76); THYROID STIMULATING HORMONE 1.132 uIU/ML (0.55-4.78)
[2024-03-20 11:29] LABS: ALBUMIN 3.6 G/DL (3.2-5.2); ALKALINE PHOSPHATASE 80 U/L (46-116); ALT/SGPT 16 U/L (7.0-40); AST/SGOT 20 U/L (<34); BILIRUBIN,TOTAL 0.5 MG/DL (0.3-1.2); BLOOD UREA NITROGEN 17 MG/DL (9-23); CALCIUM LEVEL 11.6 MG/DL (8.3-10.6); CARBON DIOXIDE LEVEL 31 MMOL/L (20-31); CHLORIDE LEVEL 105 MMOL/L (98-107); CHOLESTEROL LEVEL 130 MG/DL (<200); CHOLESTEROL RISK RATIO 2.86 (<5); CREATININE FOR GFR 0.69 MG/DL (0.55-1.30); GLOMERULAR FILTRATION RATE > 60.0 (>32); GLUCOSE, FASTING 84 MG/DL (74-106); HDL CHOLESTEROL 45.4 MG/DL (>40); LDL CHOLESTEROL 70.2 MG/DL (<100); NON-HDL-C 84.6 MG/DL; POTASSIUM SERUM 4.3 MMOL/L (3.5-5.1); SODIUM LEVEL 139 MMOL/L (136-145); TOTAL PROTEIN 6.2 G/DL (5.7-8.2); TRIGLYCERIDES LEVEL 72 MG/DL (<150)
[2024-03-20 11:30] LABS: TOTAL 25(OH) VITAMIN D 84.8 NG/ML (20.0-100.0); VITAMIN B12 LEVEL 881 PG/ML (211-911)
== END ==
LOC: M WUC 08:04
PROVIDERS: ATTEND Nurse Practitioner Adult Health
DX: I11.9 Hypertensive heart disease without heart failure (principal); E03.9 Hypothyroidism, unspecified; E78.2 Mixed hyperlipidemia; E55.9 Vitamin D deficiency, unspecified; E53.8 Deficiency of other specified B group vitamins

== ENCOUNTER → 2024-04-09 | Outpatient (CLI) | payer MEDICARE ==
[~2024-04-09] MED LIST changes: -SENN-111 PO; +SENN-165 PO
== END ==
LOC: M PLAIMG 13:12 → M PLALAB 13:12
PROVIDERS: ATTEND Nurse Practitioner Adult Health
DX: M85.862 Other specified disorders of bone density and structure, left lower leg (principal); M16.12 Unilateral primary osteoarthritis, left hip; M25.552 Pain in left hip; M25.562 Pain in left knee

== ENCOUNTER → 2024-06-18 | Outpatient (CLI) | payer MEDICARE | LOC: M PLAIMG 15:43 | PROVIDERS: ATTEND Physician Assistant Medical | DX: J18.1 Lobar pneumonia, unspecified organism (principal); J06.9 Acute upper respiratory infection, unspecified ==

== ENCOUNTER 2024-07-01 10:22 | Inpatient (IN) | payer MEDICARE ==
[2024-07-01] VITALS (7 sets, daily range): BP systolic 108–122; BP diastolic 55–64; TEMP 97.5–98.3; O2SAT 85–98
[~2024-07-01] VITALS: Ht 157.5 cm; Wt 48.4 kg
[2024-07-01] MEDS ORDERED: IRBE300T25 PO (10:55)
[2024-07-01 11:25] LABS: HEMOGLOBIN 13.3 g/dl (12.0-15.5); MEAN CORPUSCULAR HEMOGLOBIN 29.5 pg (27.0-33.0); MEAN CORPUSCULAR HGB CONC 33.3 g/dl (32.0-36.5); MEAN CORPUSCULAR VOLUME 88.7 fl (80.0-96.0); PLATELET COUNT, AUTOMATED 245 10^3/uL (150-450); RED BLOOD COUNT 4.51 10^6/uL (4.00-5.40)
[2024-07-01 11:26] LABS: ABG BASE EXCESS -5.1 (-2.0-2.0); ABG HCO3 17.3 MMOL/L (22.0-26.0); ABG PARTIAL PRESSURE O2 57.1 mmHg (75.0-100.0); ABG STANDARD HCO3 20.1 MMOL/L. (22.0-26.0); ABG TOTAL CO2 18.1 MMOL/L (23.0-31.0); ABG pH (ARTERIAL) 7.442 UNITS (7.350-7.450)
[2024-07-01 11:28] LABS: WHITE BLOOD COUNT 63.6 10^3/uL (4.0-10.0)
[2024-07-01] MEDS: FUROSEMIDE 40MG/4ML VIAL IV ONE (11:40)
[2024-07-01 11:45] LABS: ATYPICAL LYMPH 5 % (0-5); LYMPHOCYTES 1 % (16-44); METAMYELOCYTES 2 % (0-0); MONOCYTES 5 % (0-5); NEUTROPHILS 76 % (28-66); PLATELET ESTIMATE NORMAL (NORMAL)
[2024-07-01 11:56] LABS: ALBUMIN 2.8 G/DL (3.2-5.2); ALKALINE PHOSPHATASE 87 U/L (35-104); ALT/SGPT 17 U/L (7.0-40); AST/SGOT 17 U/L (<34); BILIRUBIN,DIRECT 0.8 MG/DL (<0.4); BILIRUBIN,TOTAL 1.8 MG/DL (0.3-1.2); BLOOD UREA NITROGEN 22 MG/DL (9-23); CALCIUM LEVEL 10.4 MG/DL (8.3-10.6); CARBON DIOXIDE LEVEL 23 MMOL/L (20-31); CHLORIDE LEVEL 96 MMOL/L (98-107); CREATININE FOR GFR 0.84 MG/DL (0.55-1.30); GLOMERULAR FILTRATION RATE > 60.0 (>32); GLUCOSE, FASTING 79 MG/DL (74-106); POTASSIUM SERUM 3.9 MMOL/L (3.5-5.1); SODIUM LEVEL 133 MMOL/L (136-145); TOTAL PROTEIN 5.6 G/DL (5.7-8.2)
[2024-07-01] MEDS: NS 0.9% IV ONE (12:07)
[2024-07-01] MEDS: [UNRECOGNIZED DRUG - OTHER] IV ONE (12:07)
[2024-07-01] MEDS: cefTRIAXone SOD 2 GM in DEXTROSE 5% (D5W) ADV/MINI-BAG 50 ML IV ONE (12:08)
[2024-07-01 13:02] LABS: SOURCE PERIPHERAL SMEAR
[2024-07-01] MEDS: IPRATROPIUM 0.5MG/ALBUTEROL 2.5MG INH SOL UD 3ML (DUONEB) NEB SCH (13:45)
[2024-07-01] MEDS ORDERED: HYDR12.55 PO (14:11)
[2024-07-01] MEDS ORDERED: MAGN400C PO (14:11)
[2024-07-01] MEDS ORDERED: ERGO500029 PO (14:11)
[2024-07-01] MEDS ORDERED: HOME MED LIST COMPLETE! XX SCH (14:15)
[2024-07-01] MEDS ORDERED: VANCOMYCIN/WATER FOR INJ 1,000 MG in IV 1 EA IV SCH (14:40)
[2024-07-01] MEDS ORDERED: MAGNESIUM OXIDE 400MG TAB (MAG-OX) PO SCH (14:40)
[2024-07-01] MEDS: NS (Normal Saline) 0.9% 1,000 ML IV SCH (14:57)
[2024-07-01] MEDS: ALBUTEROL SULFATE 2.5MG/0.5ML INH NEB SOLN INH SCH (15:10)
[2024-07-01] MEDS: PANTOPRAZOLE 40MG TAB (PROTONIX) PO SCH (15:52)
[2024-07-01] MEDS: VANCOMYCIN HCL 1,000 MG, VIAL MATE ADAPTER 1 EACH in NS 250 ML IV ONE (15:53)
[2024-07-01] MEDS: allopurinoL 100 MG TAB PO SCH (21:32)
[2024-07-01] MEDS: VANCOMYCIN HCL 500 MG in DEXTROSE 5% (D5W) MINI-BAG PLU 100 ML IV SCH (21:32)
[2024-07-01] MEDS: ASPIRIN 81MG ENTERIC TABLET PO SCH (21:33)
[2024-07-01] MEDS: EZETIMIBE 10MG TABLET (ZETIA) PO SCH (21:33)
[2024-07-02] VITALS (39 sets, daily range): BP systolic 111–178; BP diastolic 56–86; TEMP 97.5–99.1; O2SAT 83–96
[2024-07-02] MEDS: LEVOTHYROXINE 125MCG TABLET (0.125MG) PO SCH (06:01)
[2024-07-02 07:00] LABS: BASO # 0.1 10^3/uL (0.0-0.2); BASO % 0.2 % (0.0-1.0); EOS # 0.1 10^3/uL (0.0-0.5); EOS % 0.2 % (0.0-3.0); HEMATOCRIT 33.4 % (36.0-47.0); HEMOGLOBIN 11.4 g/dl (12.0-15.5); LYMPH # 0.8 10^3/uL (1.5-5.0); LYMPH % 2.5 % (24.0-44.0); MEAN CORPUSCULAR HEMOGLOBIN 29.3 pg (27.0-33.0); MEAN CORPUSCULAR HGB CONC 34.1 g/dl (32.0-36.5); MEAN CORPUSCULAR VOLUME 85.9 fl (80.0-96.0); MONO % 12.1 % (2.0-8.0); NEUTROPHILS % 81.5 % (36.0-66.0); PLATELET COUNT, AUTOMATED 191 10^3/uL (150-450); RED BLOOD COUNT 3.89 10^6/uL (4.00-5.40)
[2024-07-02 07:08] LABS: WHITE BLOOD COUNT 33.1 10^3/uL (4.0-10.0)
[2024-07-02 07:29] LABS: BLOOD UREA NITROGEN 15 MG/DL (9-23); CALCIUM LEVEL 8.7 MG/DL (8.3-10.6); CARBON DIOXIDE LEVEL 24 MMOL/L (20-31); CHLORIDE LEVEL 105 MMOL/L (98-107); CREATININE FOR GFR 0.54 MG/DL (0.55-1.30); GLOMERULAR FILTRATION RATE > 60.0 (>32); GLUCOSE, FASTING 77 MG/DL (74-106); MAGNESIUM LEVEL 1.8 MG/DL (1.8-2.4); POTASSIUM SERUM 2.9 MMOL/L (3.5-5.1); SODIUM LEVEL 137 MMOL/L (136-145)
[2024-07-02] MEDS: ENOXAPARIN 40MG/0.4ML SYRINGE (J1650 PER 10MG) SC SCH (08:59)
[2024-07-02] MEDS: VANCOMYCIN HCL 750 MG, VIAL MATE ADAPTER 1 EACH in NS 250 ML IV SCH (10:35)
[2024-07-02] MEDS: POTASSIUM CHLORIDE 10% LIQ 20MEQ/15ML UDC PO SCH (10:35)
[2024-07-02] MEDS: LORazepam 0.5 MG TAB PO PRN (10:35)
[2024-07-02] MEDS: KCL 20MEQ IN 0.45NS 1000ML 1,000 ML IV SCH (10:36)
[2024-07-02] MEDS: cefTRIAXone SOD 2 GM in DEXTROSE 5% (D5W) ADV/MINI-BAG 50 ML IV SCH (13:10)
[2024-07-02 13:27] LABS: ABG BASE EXCESS -3.3 (-2.0-2.0); ABG HCO3 22.2 MMOL/L (22.0-26.0); ABG O2 SATURATION 92.6 % (95.0-99.0); ABG PARTIAL PRESSURE CO2 41.6 mmHg (35.0-45.0); ABG STANDARD HCO3 21.7 MMOL/L. (22.0-26.0); ABG TOTAL CO2 23.5 MMOL/L (23.0-31.0); ABG pH (ARTERIAL) 7.346 UNITS (7.350-7.450)
[2024-07-02] MEDS ORDERED: methylPREDNISolone 125MG 2ML VIAL IV SCH (14:00)
[2024-07-02] MEDS: HYDROCORTISONE 100MG/2ML VIAL IV ONE (14:13)
[2024-07-02] MEDS: FUROSEMIDE 40MG/4ML VIAL IV ONE (14:13)
[2024-07-02] MEDS: IPRATROPIUM 0.5MG/ALBUTEROL 2.5MG INH SOL UD 3ML (DUONEB) NEB SCH (15:14)
[2024-07-02 15:18] LABS: CK-MB VALUE MASS 6.2 NG/ML (<3.6)
[2024-07-02 15:20] LABS: CPK CREATINE PHOSPHOKINASE 69 U/L (34-145); MB/CK RELATIVE INDEX 8.98 (< OR =4)
[2024-07-02 15:25] LABS: ALBUMIN 2.3 G/DL (3.2-5.2); ALKALINE PHOSPHATASE 115 U/L (35-104); ALT/SGPT 15 U/L (7.0-40); AST/SGOT 25 U/L (<34); BILIRUBIN,TOTAL 0.4 MG/DL (0.3-1.2); BLOOD UREA NITROGEN 11 MG/DL (9-23); CALCIUM LEVEL 8.8 MG/DL (8.3-10.6); CARBON DIOXIDE LEVEL 22 MMOL/L (20-31); CHLORIDE LEVEL 106 MMOL/L (98-107); CREATININE FOR GFR 0.43 MG/DL (0.55-1.30); GLOMERULAR FILTRATION RATE > 60.0 (>32); GLUCOSE, FASTING 130 MG/DL (74-106); POTASSIUM SERUM 3.4 MMOL/L (3.5-5.1); SODIUM LEVEL 137 MMOL/L (136-145); TOTAL PROTEIN 4.8 G/DL (5.7-8.2)
[2024-07-02] MEDS: AZITHROMYCIN INJ 500 MG, VIAL MATE ADAPTER 1 EACH in NS 250 ML IV SCH (15:27)
[2024-07-02] MEDS: POTASSIUM CHLORIDE 10MEQ SR TABLET PO ONE (16:37)
[2024-07-02] MEDS ORDERED: HYDROCORTISONE 100MG/2ML VIAL IV SCH (22:00)
[2024-07-02] MEDS: HYDROCORTISONE 100MG/2ML VIAL IV SCH (22:08)
[2024-07-02] MEDS: FUROSEMIDE 40MG/4ML VIAL IV SCH (22:09)
[2024-07-03] VITALS (37 sets, daily range): BP systolic 125–147; BP diastolic 44–76; TEMP 97.5–98.1; O2SAT 88–100
[2024-07-03] MEDS: ACETAMINOPHEN 325 MG TAB PO PRN (01:14)
[2024-07-03 07:18] LABS: BASO % 0.2 % (0.0-1.0); EOS # 0.1 10^3/uL (0.0-0.5); EOS % 0.4 % (0.0-3.0); HEMATOCRIT 39.6 % (36.0-47.0); LYMPH # 0.5 10^3/uL (1.5-5.0); LYMPH % 2.2 % (24.0-44.0); MEAN CORPUSCULAR HEMOGLOBIN 29.6 pg (27.0-33.0); MEAN CORPUSCULAR HGB CONC 34.3 g/dl (32.0-36.5); MEAN CORPUSCULAR VOLUME 86.1 fl (80.0-96.0); MONO # 2.4 10^3/uL (0.0-0.8); NEUTROPHILS # 20.6 10^3/uL (1.5-8.5); NEUTROPHILS % 85.2 % (36.0-66.0); PLATELET COUNT, AUTOMATED 227 10^3/uL (150-450); WHITE BLOOD COUNT 24.2 10^3/uL (4.0-10.0)
[2024-07-03 07:32] LABS: HEMOGLOBIN 13.6 g/dl (12.0-15.5)
[2024-07-03 07:33] LABS: BLOOD UREA NITROGEN 9 MG/DL (9-23); CALCIUM LEVEL 9.1 MG/DL (8.3-10.6); CARBON DIOXIDE LEVEL 27 MMOL/L (20-31); CHLORIDE LEVEL 104 MMOL/L (98-107); CREATININE FOR GFR 0.47 MG/DL (0.55-1.30); GLOMERULAR FILTRATION RATE > 60.0 (>32); GLUCOSE, FASTING 119 MG/DL (74-106); MAGNESIUM LEVEL 1.6 MG/DL (1.8-2.4); POTASSIUM SERUM 3.7 MMOL/L (3.5-5.1); SODIUM LEVEL 140 MMOL/L (136-145)
[2024-07-03] MEDS ORDERED: FLUBLOK(EGGFREE) TRIVAL(24-25) VACCINE PF 0.5ML SYRINGE 18YRS & OLDER IM.IMMUN ONE (09:00)
[2024-07-03] MEDS: VANCOMYCIN HCL 1,000 MG, VIAL MATE ADAPTER 1 EACH in NS 250 ML IV SCH (11:48)
[2024-07-03] MEDS: SODIUM CHLORIDE HYPERTONIC 3% 4ML NEB SOL INH SCH (20:31)
[2024-07-04] VITALS (31 sets, daily range): BP systolic 121–144; BP diastolic 58–78; TEMP 97.7–98.2; O2SAT 83–96
[2024-07-04] MEDS: diphenhydrAMINE 50MG CAP PO ONE (00:19)
[2024-07-04 06:12] LABS: BASO # 0.1 10^3/uL (0.0-0.2); BASO % 0.3 % (0.0-1.0); EOS % 0.1 % (0.0-3.0); HEMATOCRIT 37.6 % (36.0-47.0); HEMOGLOBIN 12.7 g/dl (12.0-15.5); LYMPH # 0.6 10^3/uL (1.5-5.0); LYMPH % 3.1 % (24.0-44.0); MEAN CORPUSCULAR HEMOGLOBIN 28.9 pg (27.0-33.0); MEAN CORPUSCULAR HGB CONC 33.8 g/dl (32.0-36.5); MEAN CORPUSCULAR VOLUME 85.6 fl (80.0-96.0); MONO # 2.2 10^3/uL (0.0-0.8); MONO % 10.9 % (2.0-8.0); NEUTROPHILS # 16.4 10^3/uL (1.5-8.5); NEUTROPHILS % 82.7 % (36.0-66.0); PLATELET COUNT, AUTOMATED 254 10^3/uL (150-450); RED BLOOD COUNT 4.39 10^6/uL (4.00-5.40); WHITE BLOOD COUNT 19.8 10^3/uL (4.0-10.0)
[2024-07-04 06:45] LABS: BLOOD UREA NITROGEN 11 MG/DL (9-23); CALCIUM LEVEL 9.2 MG/DL (8.3-10.6); CARBON DIOXIDE LEVEL 33 MMOL/L (20-31); CHLORIDE LEVEL 97 MMOL/L (98-107); CREATININE FOR GFR 0.42 MG/DL (0.55-1.30); GLOMERULAR FILTRATION RATE > 60.0 (>32); GLUCOSE, FASTING 109 MG/DL (74-106); MAGNESIUM LEVEL 1.8 MG/DL (1.8-2.4); POTASSIUM SERUM 3.3 MMOL/L (3.5-5.1); SODIUM LEVEL 138 MMOL/L (136-145)
[2024-07-05] VITALS (32 sets, daily range): BP systolic 103–152; BP diastolic 66–87; TEMP 97–99; O2SAT 87–97
[2024-07-05 09:55] LABS: HEMATOCRIT 39.4 % (36.0-47.0); HEMOGLOBIN 13.5 g/dl (12.0-15.5); MEAN CORPUSCULAR HEMOGLOBIN 29.3 pg (27.0-33.0); MEAN CORPUSCULAR HGB CONC 34.3 g/dl (32.0-36.5); MEAN CORPUSCULAR VOLUME 85.5 fl (80.0-96.0); PLATELET COUNT, AUTOMATED 285 10^3/uL (150-450); RED BLOOD COUNT 4.61 10^6/uL (4.00-5.40); WHITE BLOOD COUNT 13.5 10^3/uL (4.0-10.0)
[2024-07-05 10:07] LABS: ANISOCYTOSIS 1+; ATYPICAL LYMPH 5 % (0-5); LYMPHOCYTES 6 % (16-44); MONOCYTES 14 % (0-5); NEUTROPHILS 75 % (28-66); PLATELET CLUMPS SMALL AMT; PLATELET ESTIMATE NORMAL (NORMAL); POLYCHROMASIA 1+
[2024-07-05 10:22] LABS: BLOOD UREA NITROGEN 15 MG/DL (9-23); CALCIUM LEVEL 9.8 MG/DL (8.3-10.6); CARBON DIOXIDE LEVEL 39 MMOL/L (20-31); CHLORIDE LEVEL 96 MMOL/L (98-107); CREATININE FOR GFR 0.39 MG/DL (0.55-1.30); GLOMERULAR FILTRATION RATE > 60.0 (>32); GLUCOSE, FASTING 105 MG/DL (74-106); MAGNESIUM LEVEL 1.9 MG/DL (1.8-2.4); POTASSIUM SERUM 3.3 MMOL/L (3.5-5.1); SODIUM LEVEL 140 MMOL/L (136-145)
[2024-07-05] MEDS: VANCOMYCIN HCL 750 MG, VIAL MATE ADAPTER 1 EACH in NS 250 ML IV SCH (11:50)
[2024-07-05] MEDS: ACETAMINOPHEN *IV* 1,000 MG in IV 1 EA IV ONE (13:53)
[2024-07-05] MEDS: KCL 10MEQ/100ML SWI (KRUN) 10 MEQ in IV 1 EA IV SCH (14:00)
[2024-07-05 14:35] LABS: C REACTIVE PROTEIN QUANTITATIV 16.43 MG/DL (<1.0)
[2024-07-05] MEDS: guaiFENesin ER TABLET 600 MG TAB PO SCH (15:11)
[2024-07-05 18:44] LABS: URINE STREP PNEUMONIAE ANTIGEN NOT DETECTED (NOT DETECT)
[2024-07-06] VITALS (30 sets, daily range): BP systolic 107–154; BP diastolic 62–99; TEMP 97.2–98.2; O2SAT 78–97
[2024-07-06 07:04] LABS: BASO % 0.1 % (0.0-1.0); HEMATOCRIT 40.2 % (36.0-47.0); HEMOGLOBIN 13.3 g/dl (12.0-15.5); LYMPH % 8.8 % (24.0-44.0); MEAN CORPUSCULAR HEMOGLOBIN 28.5 pg (27.0-33.0); MEAN CORPUSCULAR HGB CONC 33.1 g/dl (32.0-36.5); MEAN CORPUSCULAR VOLUME 86.1 fl (80.0-96.0); MONO # 0.7 10^3/uL (0.0-0.8); MONO % 6.1 % (2.0-8.0); NEUTROPHILS % 69.6 % (36.0-66.0); PLATELET COUNT, AUTOMATED 304 10^3/uL (150-450); RED BLOOD COUNT 4.67 10^6/uL (4.00-5.40); WHITE BLOOD COUNT 11.4 10^3/uL (4.0-10.0)
[2024-07-06 07:27] LABS: BLOOD UREA NITROGEN 18 MG/DL (9-23); C REACTIVE PROTEIN QUANTITATIV 8.71 MG/DL (<1.0); CALCIUM LEVEL 9.9 MG/DL (8.3-10.6); CARBON DIOXIDE LEVEL 40 MMOL/L (20-31); CHLORIDE LEVEL 98 MMOL/L (98-107); CREATININE FOR GFR 0.51 MG/DL (0.55-1.30); GLOMERULAR FILTRATION RATE > 60.0 (>32); GLUCOSE, FASTING 113 MG/DL (74-106); POTASSIUM SERUM 3.7 MMOL/L (3.5-5.1); SODIUM LEVEL 143 MMOL/L (136-145)
[2024-07-06] MEDS: FUROSEMIDE 40 MG TAB PO SCH (16:42)
[2024-07-06] MEDS: predniSONE 20 MG TAB PO SCH (20:52)
[2024-07-07] VITALS (23 sets, daily range): BP systolic 133–162; BP diastolic 72–86; TEMP 97.4–98; O2SAT 89–99
[2024-07-07 05:56] LABS: BASO # 0.1 10^3/uL (0.0-0.2); BASO % 0.9 % (0.0-1.0); EOS % 0.2 % (0.0-3.0); HEMOGLOBIN 12.9 g/dl (12.0-15.5); LYMPH # 1.1 10^3/uL (1.5-5.0); LYMPH % 7.9 % (24.0-44.0); MEAN CORPUSCULAR HEMOGLOBIN 28.9 pg (27.0-33.0); MEAN CORPUSCULAR HGB CONC 33.1 g/dl (32.0-36.5); MEAN CORPUSCULAR VOLUME 87.2 fl (80.0-96.0); MONO # 0.8 10^3/uL (0.0-0.8); MONO % 6.2 % (2.0-8.0); NEUTROPHILS # 8.8 10^3/uL (1.5-8.5); NEUTROPHILS % 65.4 % (36.0-66.0); PLATELET COUNT, AUTOMATED 275 10^3/uL (150-450); RED BLOOD COUNT 4.47 10^6/uL (4.00-5.40); WHITE BLOOD COUNT 13.5 10^3/uL (4.0-10.0)
[2024-07-07 06:18] LABS: BLOOD UREA NITROGEN 17 MG/DL (9-23); CALCIUM LEVEL 10.7 MG/DL (8.3-10.6); CARBON DIOXIDE LEVEL 39 MMOL/L (20-31); CHLORIDE LEVEL 98 MMOL/L (98-107); CREATININE FOR GFR 0.41 MG/DL (0.55-1.30); GLOMERULAR FILTRATION RATE > 60.0 (>32); GLUCOSE, FASTING 103 MG/DL (74-106); MAGNESIUM LEVEL 1.8 MG/DL (1.8-2.4); POTASSIUM SERUM 3.8 MMOL/L (3.5-5.1); SODIUM LEVEL 141 MMOL/L (136-145)
[2024-07-07] MEDS: AZITHROMYCIN 250MG TABLET PO SCH (12:07)
[2024-07-07 12:37] LABS: PROCALCITONIN 0.32 ng/ml
[2024-07-07] MEDS: RAMELTEON 8 MG TAB (ROZEREM) PO PRN (22:19)
[2024-07-08] VITALS (33 sets, daily range): BP systolic 122–156; BP diastolic 66–90; TEMP 96.9–99.1; O2SAT 83–98
[2024-07-08] MEDS ORDERED: SODIUM CHLORIDE NASAL 0.65% SPRAY BTL (OCEAN) PRN (03:55)
[2024-07-08 06:33] LABS: HEMATOCRIT 39.8 % (36.0-47.0); HEMOGLOBIN 13.5 g/dl (12.0-15.5); MEAN CORPUSCULAR HGB CONC 33.9 g/dl (32.0-36.5); MEAN CORPUSCULAR VOLUME 85.6 fl (80.0-96.0); PLATELET COUNT, AUTOMATED 284 10^3/uL (150-450); RED BLOOD COUNT 4.65 10^6/uL (4.00-5.40)
[2024-07-08 06:57] LABS: BLOOD UREA NITROGEN 15 MG/DL (9-23); CALCIUM LEVEL 11.3 MG/DL (8.3-10.6); CARBON DIOXIDE LEVEL > 40.0 MMOL/L (20-31); CHLORIDE LEVEL 96 MMOL/L (98-107); CREATININE FOR GFR 0.46 MG/DL (0.55-1.30); GLOMERULAR FILTRATION RATE > 60.0 (>32); GLUCOSE, FASTING 107 MG/DL (74-106); POTASSIUM SERUM 4.3 MMOL/L (3.5-5.1); SODIUM LEVEL 140 MMOL/L (136-145)
[2024-07-08 07:43] LABS: ATYPICAL LYMPH 10 % (0-5); LYMPHOCYTES 10 % (16-44); MONOCYTES 11 % (0-5); NEUTROPHILS 69 % (28-66); PLATELET ESTIMATE NORMAL (NORMAL); POLYCHROMASIA 1+
[2024-07-08 07:44] LABS: ANISOCYTOSIS 1+; POIKILOCYTOSIS 1+
[2024-07-08] MEDS: DOCUSATE SODIUM 100MG CAPSULE PO PRN (12:27)
[2024-07-08] MEDS: CEFDINIR 300 MG CAP (OMNICEF) PO SCH (12:27)
[2024-07-08] MEDS: DOXYCYCLINE HYCLATE 100MG TABLET PO SCH (12:27)
[2024-07-08] MEDS: CALCITONIN SALMON (MIACALCIN) 400INTERNATIONAL UNITS/2ML VIAL SQ SCH (17:51)
[2024-07-08] MEDS: predniSONE 10MG TAB PO SCH (22:51)
[2024-07-09] VITALS (25 sets, daily range): BP systolic 110–143; BP diastolic 60–74; TEMP 97.1–97.8; O2SAT 86–100
[2024-07-09] MEDS ORDERED: PILL CUTTER 1 EACH XX PRN (07:35)
[2024-07-09 08:38] LABS: BLOOD UREA NITROGEN 17 MG/DL (9-23); CALCIUM LEVEL 11.4 MG/DL (8.3-10.6); CARBON DIOXIDE LEVEL > 40.0 MMOL/L (20-31); CHLORIDE LEVEL 94 MMOL/L (98-107); CREATININE FOR GFR 0.46 MG/DL (0.55-1.30); GLOMERULAR FILTRATION RATE > 60.0 (>32); GLUCOSE, FASTING 109 MG/DL (74-106); SODIUM LEVEL 137 MMOL/L (136-145)
[2024-07-09] MEDS: FUROSEMIDE 20MG/2ML VIAL IV ONE ×2 (08:40→11:30)
[2024-07-09] MEDS: ONDANSETRON 4MG 2ML VIAL IV ONE (08:41)
[2024-07-09 09:38] LABS: CK-MB VALUE MASS < 1.0 NG/ML (<3.6)
[2024-07-09 09:39] LABS: CPK CREATINE PHOSPHOKINASE < 15 U/L (34-145)
[2024-07-09 09:45] LABS: BASO # 0.1 10^3/uL (0.0-0.2); BASO % 0.8 % (0.0-1.0); EOS % 0.2 % (0.0-3.0); HEMATOCRIT 40.5 % (36.0-47.0); HEMOGLOBIN 13.4 g/dl (12.0-15.5); LYMPH # 1.8 10^3/uL (1.5-5.0); LYMPH % 11.6 % (24.0-44.0); MEAN CORPUSCULAR HEMOGLOBIN 28.9 pg (27.0-33.0); MEAN CORPUSCULAR HGB CONC 33.1 g/dl (32.0-36.5); MEAN CORPUSCULAR VOLUME 87.3 fl (80.0-96.0); MONO # 1.3 10^3/uL (0.0-0.8); NEUTROPHILS # 9.8 10^3/uL (1.5-8.5); PLATELET COUNT, AUTOMATED 295 10^3/uL (150-450); RED BLOOD COUNT 4.64 10^6/uL (4.00-5.40); WHITE BLOOD COUNT 15.6 10^3/uL (4.0-10.0)
[2024-07-09 09:51] LABS: PROCALCITONIN 0.25 ng/ml
[2024-07-09] MEDS: metOLazone 2.5 MG TAB PO ONE (10:09)
[2024-07-09] MEDS ORDERED: FUROSEMIDE 20MG/2ML VIAL IV ONE (15:30)
[2024-07-09 19:07] LABS: BLOOD UREA NITROGEN 19 MG/DL (9-23); CALCIUM LEVEL 11.5 MG/DL (8.3-10.6); CARBON DIOXIDE LEVEL > 40.0 MMOL/L (20-31); CHLORIDE LEVEL 94 MMOL/L (98-107); GLOMERULAR FILTRATION RATE > 60.0 (>32); GLUCOSE, FASTING 108 MG/DL (74-106); POTASSIUM SERUM 4.3 MMOL/L (3.5-5.1); SODIUM LEVEL 136 MMOL/L (136-145)
[2024-07-09] MEDS: ONDANSETRON 4MG 2ML VIAL IV PRN (20:32)
[2024-07-10] VITALS (13 sets, daily range): BP systolic 113–122; BP diastolic 69–74; TEMP 97.5–97.7; O2SAT 86–96
[2024-07-10] MEDS: ALBUTEROL SULFATE 2.5MG/0.5ML INH NEB SOLN INH PRN (02:01)
[2024-07-10 03:17] LABS: T P ELECTROPHORESIS SO 5.8 g/dL (6.1-8.1)
[2024-07-10 06:05] LABS: BASO # 0.1 10^3/uL (0.0-0.2); BASO % 0.6 % (0.0-1.0); EOS % 0.2 % (0.0-3.0); HEMATOCRIT 41.5 % (36.0-47.0); HEMOGLOBIN 13.9 g/dl (12.0-15.5); LYMPH # 1.8 10^3/uL (1.5-5.0); LYMPH % 13.6 % (24.0-44.0); MEAN CORPUSCULAR HEMOGLOBIN 29.1 pg (27.0-33.0); MEAN CORPUSCULAR HGB CONC 33.5 g/dl (32.0-36.5); MONO % 7.2 % (2.0-8.0); NEUTROPHILS # 8.7 10^3/uL (1.5-8.5); NEUTROPHILS % 65.7 % (36.0-66.0); PLATELET COUNT, AUTOMATED 280 10^3/uL (150-450); RED BLOOD COUNT 4.77 10^6/uL (4.00-5.40); WHITE BLOOD COUNT 13.3 10^3/uL (4.0-10.0)
[2024-07-10 06:24] LABS: BLOOD UREA NITROGEN 20 MG/DL (9-23); CALCIUM LEVEL 11.7 MG/DL (8.3-10.6); CARBON DIOXIDE LEVEL 40 MMOL/L (20-31); CHLORIDE LEVEL 92 MMOL/L (98-107); CREATININE FOR GFR 0.55 MG/DL (0.55-1.30); GLOMERULAR FILTRATION RATE > 60.0 (>32); GLUCOSE, FASTING 99 MG/DL (74-106); MAGNESIUM LEVEL 1.9 MG/DL (1.8-2.4); POTASSIUM SERUM 4.6 MMOL/L (3.5-5.1); SODIUM LEVEL 133 MMOL/L (136-145)
[2024-07-10 06:43] LABS: ALBUMIN SPEP 2.9 g/dL (3.8-4.8); ALPHA-1-GLOBULINS SO 0.5 g/dL (0.2-0.3); BETA 2 GLOBULIN 0.3 g/dL (0.2-0.5); BETA-GLOBULIN SO 0.4 g/dL (0.4-0.6); GAMMA GLOBULINS SO 0.7 g/dL (0.8-1.7); SPEP ABN PROTEIN BAND 1 0.1 g/dL (NONE DETECTED)
[2024-07-10] MEDS ORDERED: ZOLEDRONIC ACID 3 MG in D5W 100 ML IV ONE (08:30)
[2024-07-10] MEDS: SENNA 8.6 MG TAB (SENOKOT) PO SCH (08:54)
[2024-07-10] MEDS: MOM 30ML SUSPENSION UDC PO ONE (08:54)
[2024-07-10] MEDS: BISACODYL 10MG SUPP PR ONE (08:55)
[2024-07-10] MEDS: LACTULOSE 20GM/30ML SYRUP UDC PO ONE (08:55)
[2024-07-10] MEDS: CARBAMIDE PEROXIDE 6.5% OTIC SOLN 15ML AU SCH (09:00)
[2024-07-10 09:32] LABS: T P ELECTROPHORESIS SO 5.1 g/dL (6.1-8.1)
[2024-07-10] MEDS: CALCITONIN SALMON (MIACALCIN) 400INTERNATIONAL UNITS/2ML VIAL SQ SCH (11:29)
[2024-07-10 15:32] LABS: UPEP CREATININE 11 mg/dL (20-275); UPEP TOTAL PROTEIN < 4 mg/dL (5-24)
[2024-07-10] MEDS: MOM 30ML SUSPENSION UDC PO PRN (17:52)
[2024-07-11] MEDS: LORazepam 0.5 MG TAB PO PRN (00:26)
[2024-07-11 03:57] VITALS: BP 127/86; TEMP 97.7; O2SAT 95
[2024-07-11 04:58] LABS: HEMOGLOBIN 13.4 g/dl (12.0-15.5); MEAN CORPUSCULAR HEMOGLOBIN 28.8 pg (27.0-33.0); MEAN CORPUSCULAR HGB CONC 33.5 g/dl (32.0-36.5); MEAN CORPUSCULAR VOLUME 85.8 fl (80.0-96.0); PLATELET COUNT, AUTOMATED 258 10^3/uL (150-450); RED BLOOD COUNT 4.66 10^6/uL (4.00-5.40); WHITE BLOOD COUNT 15.1 10^3/uL (4.0-10.0)
[2024-07-11 05:17] LABS: BLOOD UREA NITROGEN 21 MG/DL (9-23); CALCIUM LEVEL 11.8 MG/DL (8.3-10.6); CARBON DIOXIDE LEVEL 38 MMOL/L (20-31); CHLORIDE LEVEL 91 MMOL/L (98-107); GLOMERULAR FILTRATION RATE > 60.0 (>32); GLUCOSE, FASTING 90 MG/DL (74-106); MAGNESIUM LEVEL 2.1 MG/DL (1.8-2.4); POTASSIUM SERUM 4.3 MMOL/L (3.5-5.1); SODIUM LEVEL 133 MMOL/L (136-145)
[2024-07-11 05:18] LABS: LYMPHOCYTES 20 % (16-44); MONOCYTES 12 % (0-5); NEUTROPHILS 68 % (28-66)
[2024-07-11 05:20] LABS: HYPERSEGMENTED POLYS 1+
[2024-07-11 05:21] LABS: TOXIC VACUOLATION 1+
[2024-07-11 05:22] LABS: PLATELET ESTIMATE NORMAL (NORMAL)
[2024-07-11 06:23] LABS: UPEP ALBUMIN 100 %; URINE ALPHA 1 GLOBULIN 0 %; URINE ALPHA 2 GLOBULIN 0 %; URINE BETA GLOBULIN 0 %; URINE GAMMA GLOBULIN 0 %
[2024-07-11 09:51] VITALS: O2SAT 92
[2024-07-11] MEDS: FLEET ENEMA PR PRN (10:15)
[2024-07-11 12:30] VITALS: BP 118/70; TEMP 97.5; O2SAT 98
[2024-07-11 19:44] VITALS: BP 102/70; TEMP 97.2; O2SAT 95
[2024-07-11 21:43] VITALS: O2SAT 98
[2024-07-12 01:25] LABS: HEMATOCRIT 39.1 % (36.0-47.0); HEMOGLOBIN 13.3 g/dl (12.0-15.5)
[2024-07-12 04:15] VITALS: BP 117/68; TEMP 97.7; O2SAT 97
[2024-07-12 04:40] LABS: AMORPHOUS SEDIMENT SMALL (NEGATIVE); APPEARANCE, URINE HAZY (CLEAR); BACTERIA, URINE AUTO NEGATIVE (NEGATIVE); BILIRUBIN, URINE AUTO NEGATIVE (NEGATIVE); BLOOD, URINE BLOOD 3+ (NEGATIVE); COLOR, URINE YELLOW (YELLOW); GLUCOSE, URINE (UA) AUTO NEGATIVE (NEGATIVE); KETONE, URINE AUTO NEGATIVE (NEGATIVE); LEUKOCYTE ESTERASE, URINE AUTO 1+ (NEGATIVE); MUCUS, URINE SMALL (NEGATIVE); NITRITE, URINE AUTO NEGATIVE (NEGATIVE); PROTEIN, URINE AUTO NEGATIVE (NEGATIVE); RBC, URINE AUTO TNTC /HPF (0-3); SPECIFIC GRAVITY URINE AUTO 1.012 (1.002-1.035); SQUAMOUS EPITHELIAL CELL UR AU 0 /HPF (0-6); UROBILINOGEN, URINE AUTO 0.2 mg/dL (0.0-2.0); WBC, URINE AUTO 44 /HPF (0-3)
[2024-07-12 06:15] LABS: BASO # 0.1 10^3/uL (0.0-0.2); BASO % 0.3 % (0.0-1.0); EOS % 0.1 % (0.0-3.0); HEMATOCRIT 38.7 % (36.0-47.0); HEMOGLOBIN 13.1 g/dl (12.0-15.5); LYMPH # 2.2 10^3/uL (1.5-5.0); LYMPH % 13.4 % (24.0-44.0); MEAN CORPUSCULAR HGB CONC 33.9 g/dl (32.0-36.5); MEAN CORPUSCULAR VOLUME 85.8 fl (80.0-96.0); MONO # 2.2 10^3/uL (0.0-0.8); MONO % 13.3 % (2.0-8.0); NEUTROPHILS # 11.2 10^3/uL (1.5-8.5); NEUTROPHILS % 67.3 % (36.0-66.0); PLATELET COUNT, AUTOMATED 246 10^3/uL (150-450); RED BLOOD COUNT 4.51 10^6/uL (4.00-5.40); WHITE BLOOD COUNT 16.7 10^3/uL (4.0-10.0)
[2024-07-12 06:44] LABS: BLOOD UREA NITROGEN 28 MG/DL (9-23); CALCIUM LEVEL 11.6 MG/DL (8.3-10.6); CARBON DIOXIDE LEVEL 39 MMOL/L (20-31); CHLORIDE LEVEL 94 MMOL/L (98-107); CREATININE FOR GFR 0.58 MG/DL (0.55-1.30); GLOMERULAR FILTRATION RATE > 60.0 (>32); GLUCOSE, FASTING 95 MG/DL (74-106); MAGNESIUM LEVEL 2.5 MG/DL (1.8-2.4); SODIUM LEVEL 135 MMOL/L (136-145)
[2024-07-12 11:06] VITALS: O2SAT 91
[2024-07-12 15:00] VITALS: BP 116/69; TEMP 97.5; O2SAT 90
[2024-07-12 20:00] VITALS: BP 116/70; TEMP 97.2; O2SAT 92
[2024-07-12 20:55] VITALS: O2SAT 92
[2024-07-13 04:00] VITALS: BP 115/70; TEMP 97.7; O2SAT 93
[2024-07-13 06:20] LABS: BASO % 0.2 % (0.0-1.0); EOS % 0.1 % (0.0-3.0); HEMATOCRIT 38.2 % (36.0-47.0); HEMOGLOBIN 12.9 g/dl (12.0-15.5); LYMPH # 2.6 10^3/uL (1.5-5.0); LYMPH % 19.2 % (24.0-44.0); MEAN CORPUSCULAR HEMOGLOBIN 28.4 pg (27.0-33.0); MEAN CORPUSCULAR HGB CONC 33.8 g/dl (32.0-36.5); MEAN CORPUSCULAR VOLUME 84.1 fl (80.0-96.0); MONO # 2.4 10^3/uL (0.0-0.8); MONO % 17.7 % (2.0-8.0); NEUTROPHILS # 7.8 10^3/uL (1.5-8.5); NEUTROPHILS % 57.8 % (36.0-66.0); PLATELET COUNT, AUTOMATED 252 10^3/uL (150-450); RED BLOOD COUNT 4.54 10^6/uL (4.00-5.40); WHITE BLOOD COUNT 13.4 10^3/uL (4.0-10.0)
[2024-07-13 06:44] LABS: BLOOD UREA NITROGEN 30 MG/DL (9-23); CALCIUM LEVEL 11.7 MG/DL (8.3-10.6); CARBON DIOXIDE LEVEL 37 MMOL/L (20-31); CHLORIDE LEVEL 94 MMOL/L (98-107); CREATININE FOR GFR 0.59 MG/DL (0.55-1.30); GLOMERULAR FILTRATION RATE > 60.0 (>32); GLUCOSE, FASTING 86 MG/DL (74-106); MAGNESIUM LEVEL 2.3 MG/DL (1.8-2.4); POTASSIUM SERUM 4.1 MMOL/L (3.5-5.1); SODIUM LEVEL 136 MMOL/L (136-145)
[2024-07-13 12:00] VITALS: BP 112/69; TEMP 97.9; O2SAT 90
[2024-07-13] MEDS: oxyCODONE 5MG TAB PO ONE (15:16)
[2024-07-13] MEDS: CIPROFLOXACIN 500MG TABLET PO SCH (18:41)
[2024-07-13 20:19] VITALS: BP 103/59; TEMP 97.7; O2SAT 92
[2024-07-13 20:30] VITALS: TEMP 98.4; O2SAT 89
[2024-07-13 20:31] VITALS: O2SAT 95
[2024-07-13] MEDS ORDERED: ACETAMINOPHEN 650MG SUPP PR PRN (20:55)
[2024-07-13] MEDS ORDERED: LORazepam 2 MG/ML 1ML VIAL IV PRN (20:55)
[2024-07-13 21:34] LABS: BASO % 0.2 % (0.0-1.0); EOS % 0.2 % (0.0-3.0); HEMATOCRIT 36.6 % (36.0-47.0); HEMOGLOBIN 12.4 g/dl (12.0-15.5); LYMPH # 3.2 10^3/uL (1.5-5.0); LYMPH % 26.1 % (24.0-44.0); MEAN CORPUSCULAR HEMOGLOBIN 28.6 pg (27.0-33.0); MEAN CORPUSCULAR HGB CONC 33.9 g/dl (32.0-36.5); MEAN CORPUSCULAR VOLUME 84.5 fl (80.0-96.0); MONO # 2.4 10^3/uL (0.0-0.8); MONO % 19.3 % (2.0-8.0); NEUTROPHILS # 6.2 10^3/uL (1.5-8.5); NEUTROPHILS % 50.1 % (36.0-66.0); PLATELET COUNT, AUTOMATED 244 10^3/uL (150-450); RED BLOOD COUNT 4.33 10^6/uL (4.00-5.40); WHITE BLOOD COUNT 12.3 10^3/uL (4.0-10.0)
[2024-07-14 02:57] LABS: 25-HYDROXY VITAMIN D2 49 pg/mL; 25-HYDROXY VITAMIN D3 17 pg/mL; VITAMIN D 1 25 DIHYDROXY 66 pg/mL (18-72)
[2024-07-14 03:34] VITALS: BP 123/74; TEMP 97.9; O2SAT 94
[2024-07-14 04:58] LABS: BASO % 0.2 % (0.0-1.0); EOS # 0.1 10^3/uL (0.0-0.5); EOS % 0.5 % (0.0-3.0); HEMATOCRIT 37.5 % (36.0-47.0); HEMOGLOBIN 12.5 g/dl (12.0-15.5); LYMPH # 2.4 10^3/uL (1.5-5.0); LYMPH % 20.9 % (24.0-44.0); MEAN CORPUSCULAR HEMOGLOBIN 28.8 pg (27.0-33.0); MEAN CORPUSCULAR HGB CONC 33.3 g/dl (32.0-36.5); MEAN CORPUSCULAR VOLUME 86.4 fl (80.0-96.0); MONO # 2.4 10^3/uL (0.0-0.8); MONO % 20.8 % (2.0-8.0); NEUTROPHILS # 6.2 10^3/uL (1.5-8.5); NEUTROPHILS % 53.4 % (36.0-66.0); PLATELET COUNT, AUTOMATED 250 10^3/uL (150-450); RED BLOOD COUNT 4.34 10^6/uL (4.00-5.40); WHITE BLOOD COUNT 11.6 10^3/uL (4.0-10.0)
[2024-07-14 05:22] LABS: BLOOD UREA NITROGEN 28 MG/DL (9-23); CALCIUM LEVEL 11.4 MG/DL (8.3-10.6); CARBON DIOXIDE LEVEL 35 MMOL/L (20-31); CHLORIDE LEVEL 97 MMOL/L (98-107); CREATININE FOR GFR 0.64 MG/DL (0.55-1.30); GLOMERULAR FILTRATION RATE > 60.0 (>32); GLUCOSE, FASTING 92 MG/DL (74-106); POTASSIUM SERUM 4.2 MMOL/L (3.5-5.1); SODIUM LEVEL 135 MMOL/L (136-145)
[2024-07-14] MEDS: LEVOTHYROXINE 100MCG (0.1MG) 5ML SDV PF (SOLUTION FORM) IV SCH (05:32)
[2024-07-14 06:42] LABS: ALBUMIN SPEP 2.6 g/dL (3.8-4.8); ALPHA-1-GLOBULINS SO 0.4 g/dL (0.2-0.3); ALPHA-2-GLOBULINS SO 0.9 g/dL (0.5-0.9); BETA 2 GLOBULIN 0.3 g/dL (0.2-0.5); BETA-GLOBULIN SO 0.3 g/dL (0.4-0.6); GAMMA GLOBULINS SO 0.6 g/dL (0.8-1.7); SPEP ABN PROTEIN BAND 1 0.1 g/dL (NONE DETECTED)
[2024-07-14 07:01] VITALS: O2SAT 97
[2024-07-14] MEDS: oxyCODONE 5MG TAB PO PRN (10:52)
[2024-07-14] MEDS ORDERED: ATROPINE SULFATE 1% OPHTH SOLN 2ML BTL SL PRN (12:55)
[2024-07-14] MEDS ORDERED: HYOSCYAMINE SULFATE 0.125 MG SUBL TABLET PO PRN (12:55)
[2024-07-14] MEDS ORDERED: SCOPOLAMINE 1MG TRANSDERMAL PATCH TOP PRN (12:55)
[2024-07-14] MEDS ORDERED: LORazepam 1 MG TAB PO PRN (12:55)
[2024-07-14] MEDS ORDERED: LORazepam 2 MG/ML 1ML VIAL IV PRN (12:55)
[2024-07-14] MEDS ORDERED: ONDANSETRON 4MG ORAL DISINTEGRATING TAB PO PRN (12:55)
[2024-07-14] MEDS ORDERED: MORPHINE 2 MG/ML 1ML VIAL IV PRN (12:55)
[2024-07-14] MEDS: MORPHINE 10MG/0.5ML ORAL CONCENTRATE SOLUTION U/D SL PRN (14:59)
[2024-07-14] MEDS: allopurinoL 100 MG TAB PO SCH (20:52)
[2024-07-14] MEDS: RAMELTEON 8 MG TAB (ROZEREM) PO ONE (23:13)
[2024-07-15] MEDS: LEVOTHYROXINE 75MCG TABLET (0.075MG) PO SCH (06:07)
[2024-07-15] MEDS: IRBESARTAN 150MG TAB PO SCH (08:56)
[2024-07-15] MEDS: MORPHINE 10MG/0.5ML ORAL CONCENTRATE SOLUTION U/D SL SCH (09:00)
[2024-07-15] MEDS: LORazepam 0.5 MG TAB PO PRN (21:54)
[2024-07-15] MEDS: RAMELTEON 8 MG TAB (ROZEREM) PO PRN (21:54)
[2024-07-17] MEDS ORDERED: MORPHINE 10MG/0.5ML ORAL CONCENTRATE SOLUTION U/D SL PRN (10:10)
[2024-07-17] MEDS: LORazepam 0.5 MG TAB PO ONE (10:21)
[2024-07-17] MEDS: LEVOTHYROXINE 75MCG TABLET (0.075MG) PO SCH (10:21)
[2024-07-17] MEDS ORDERED: MORP1SOL5 PO (10:57)
[2024-07-17] MEDS ORDERED: ATIV1TAB10 PO (10:57)
[2024-07-17] MEDS ORDERED: HYOS125TA PO (10:57)
[2024-07-17] MEDS: MORPHINE 10MG/0.5ML ORAL CONCENTRATE SOLUTION U/D SL SCH (12:50)
[2024-07-17] MEDS ORDERED: LORazepam 0.5 MG TAB SL SCH (16:00)
== END 2024-07-17 13:30 | disposition home health service (06) | DRG 871 ==
LOC: M ED 10:22 → M ED INP 14:40 → M PCU 17:06 → M MSPAV 07-09 17:45
PROVIDERS: ADMIT Family Medicine; ATTEND Internal Medicine
PROC: B246ZZZ Ultrasonography of Right and Left Heart (ICD-10-PCS; principal; 2024-07-08)
DX: A41.9 Sepsis, unspecified organism (principal); J18.9 Pneumonia, unspecified organism; J96.01 Acute respiratory failure with hypoxia; I50.31 Acute diastolic (congestive) heart failure; G93.41 Metabolic encephalopathy; J81.1 Chronic pulmonary edema; E87.20 Acidosis, unspecified; E87.3 Alkalosis; Z66 Do not resuscitate; E03.9 Hypothyroidism, unspecified; R65.20 Severe sepsis without septic shock; E83.52 Hypercalcemia; I11.0 Hypertensive heart disease with heart failure; T50.1X5A Adverse effect of loop [high-ceiling] diuretics, initial encounter; K59.00 Constipation, unspecified; E78.5 Hyperlipidemia, unspecified; F03.90 Unspecified dementia, unspecified severity, without behavioral disturbance, psychotic disturbance, mood disturbance, and anxiety; H61.20 Impacted cerumen, unspecified ear; R73.01 Impaired fasting glucose; M81.0 Age-related osteoporosis without current pathological fracture; F41.9 Anxiety disorder, unspecified; M10.9 Gout, unspecified; I25.10 Atherosclerotic heart disease of native coronary artery without angina pectoris; Z95.5 Presence of coronary angioplasty implant and graft; Z87.891 Personal history of nicotine dependence; Z79.890 Hormone replacement therapy; Z79.82 Long term (current) use of aspirin; Z79.899 Other long term (current) drug therapy; Z88.0 Allergy status to penicillin; Z88.8 Allergy status to other drugs, medicaments and biological substances; E87.6 Hypokalemia; Z98.49 Cataract extraction status, unspecified eye

== ENCOUNTER → 2024-10-21 | Outpatient (REF) | payer MEDICARE ==
[~2024-10-21] MED LIST changes: +ATIV1TAB10 PO; +ERGO500029 PO; +EZET10TA21; +HYDR12.55 PO; +HYOS125TA PO; +IRBE300T25 PO; +IRBE75TA11; +MAGN400C PO; +MORP1SOL5 PO; +TRAN1DIS4
[2024-10-21 15:38] LABS: HEMATOCRIT 37.9 % (36.0-47.0); HEMOGLOBIN 12.5 g/dl (12.0-15.5); MEAN CORPUSCULAR HEMOGLOBIN 31.3 pg (27.0-33.0); MEAN CORPUSCULAR VOLUME 94.8 fl (80.0-96.0); PLATELET COUNT, AUTOMATED 254 10^3/uL (150-450); WHITE BLOOD COUNT 6.3 10^3/uL (4.0-10.0)
[2024-10-21 15:39] LABS: ALBUMIN 3.1 G/DL (3.2-5.2); BILIRUBIN,TOTAL 0.3 MG/DL (0.3-1.2); CALCIUM LEVEL 10.9 MG/DL (8.3-10.6); CREATININE FOR GFR 0.58 MG/DL (0.55-1.30); GLOMERULAR FILTRATION RATE 86.5 (>32); POTASSIUM SERUM 3.8 MMOL/L (3.5-5.1); TOTAL PROTEIN 5.9 G/DL (5.7-8.2)
[2024-10-21 15:41] LABS: FERRITIN 233.8 NG/ML (7.3-270.7); FREE T4 0.26 NG/DL (0.89-1.76); THYROID STIMULATING HORMONE 99.963 uIU/ML (0.55-4.78)
== END ==
LOC: M SFHCPLAZ 12:58
PROVIDERS: ATTEND Nurse Practitioner Adult Health
DX: I11.9 Hypertensive heart disease without heart failure (principal); E03.9 Hypothyroidism, unspecified

== ENCOUNTER 2024-10-26 07:17 | Emergency (ER) | payer MEDICARE ==
[~2024-10-26] VITALS: Ht 157.5 cm; Wt 55.0 kg
[~2024-10-26 07:17] MED LIST changes: -EZET10TA21; -IRBE75TA11; -TRAN1DIS4
[2024-10-26] MEDS ORDERED: ATIV1TAB10 PO (07:35)
[2024-10-26] MEDS ORDERED: TRAN1DIS4 (07:39)
[2024-10-26] MEDS ORDERED: EZET10TA21 (07:39)
[2024-10-26] MEDS ORDERED: IRBE75TA11 (07:39)
[2024-10-26 09:14] VITALS: BP 146/84; TEMP 97.6; O2SAT 96
== END 2024-10-26 09:35 | disposition home or self-care (01) ==
LOC: M ED 07:17
DX: R13.10 Dysphagia, unspecified (principal); R73.03 Prediabetes; E78.5 Hyperlipidemia, unspecified; K57.30 Diverticulosis of large intestine without perforation or abscess without bleeding; F41.9 Anxiety disorder, unspecified; E55.9 Vitamin D deficiency, unspecified; Z87.01 Personal history of pneumonia (recurrent); Z95.5 Presence of coronary angioplasty implant and graft; Z88.0 Allergy status to penicillin; Z88.8 Allergy status to other drugs, medicaments and biological substances